=== PATIENT | male | born 1930 | race Caucasian/White ===

== ENCOUNTER 2018-04-24 07:02 | Day surgery (SDC) | payer MEDICARE, BC ==
[2018-04-24] MEDS ORDERED: Sodium Chloride 0.9% 10 ML Syringe FLUSH PRN (07:30)
--- NOTE | 2018-04-24 09:06 | OR ---
DATE OF PROCEDURE: 04/24/2018 POSTOPERATIVE CARE: Postoperative care will be provided mainly at the [address] [place] [address] [facility] in conjunction with [facility]. PREOPERATIVE DIAGNOSIS: Cataract, left eye. POSTOPERATIVE DIAGNOSIS: Cataract, left eye. PROCEDURE: He underwent cataract extraction, phacoemulsification with intraocular lens placement in the left eye. ANESTHESIA: Topical and intracameral. ESTIMATED BLOOD LOSS: Minimal. COMPLICATIONS: None. PATHOLOGY SPECIMENS: None. SURGICAL FINDINGS: None. INDICATION FOR PROCEDURE: The patient is an 87-year-old male with history of a visually significant cataract in the left eye, which interfered with activities of daily living. This consisted of a nuclear sclerosis cataract. Following careful discussion of the risks, benefits and alternatives to cataract extraction with intraocular lens placement including blindness and , the patient elected to proceed, and informed, written consent was obtained prior to the procedure. DESCRIPTION OF THE PROCEDURE: The patient was previously identified, and a giovanni placed above the left eye. All sources, including the patient, indicated that the left eye was the correct eye. The patient was subsequently taken to the operating room where standard monitors were applied. The patient was then prepped and draped in the usual sterile fashion for ophthalmic surgery. Attention was first directed at the 12 o'clock position where a paracentesis port was fashioned. Shugar solution followed by Viscoat was instilled into the eye. Attention was then directed to the 8:30 position where a triplanar incision was made in a near-clear manner using a keratome. A continuous capsulorrhexis was then made using a combination of the cystotome and Utrata forceps. Hydrodissection was achieved using a balanced salt solution, and the lens rotated nicely. Phacoemulsification was then done using a modified [id number] technique without complication. Phaco time was 7.55 CDE. The remaining cortex was removed using the irrigation/aspiration handpiece. Provisc was then instilled into the eye. A Technis lens, model [id number], 17.0 diopters was then placed in the capsular bag using an [place] injector. The remaining viscoelastic was removed using the irrigation/aspiration forceps. All wounds were then checked and found to be watertight. The lid speculum and drapes were removed. Maxitrol ointment was placed in the patient's left eye, and the eye was shielded. The patient tolerated the procedure well. The patient was instructed to follow up tomorrow. All needle and sponge counts were correct at the end of the procedure. Yaa Pierce MD /[id number]
[2018-04-24 09:23] VITALS: BP 108/52
== END 2018-04-24 09:20 | disposition home or self-care (01) ==
LOC: JP.SDS 07:02
PROVIDERS: ATTEND Ophthalmology
DX: H25.12 Age-related nuclear cataract, left eye (principal); E78.5 Hyperlipidemia, unspecified; N18.4 Chronic kidney disease, stage 4 (severe)

== ENCOUNTER 2019-06-10 12:15 | Inpatient (IN) | payer MEDICARE, BC ==
[2019-06-10] MEDS ORDERED: Sodium Chloride 0.9% 10 ML Syringe FLUSH PRN (12:48)
[2019-06-10] MEDS ORDERED: Sodium Chloride 0.9% 500 ML IV ONE (12:48)
[2019-06-10] MEDS ORDERED: traMADol 50 MG Tab PO PRN (13:33)
[2019-06-10] MEDS ORDERED: Ondansetron 4 MG Tab.DIS PO PRN (13:34)
[2019-06-10] MEDS ORDERED: Magnesium Hydroxide 400 MG/5 ML Susp 30 ML Cup PO PRN (13:34)
[2019-06-10] MEDS ORDERED: Ondansetron 4 MG/2 ML SDV IV PRN (13:34)
[2019-06-10] MEDS ORDERED: LORazepam 2 MG/ML SDV IVPUSH PRN (13:34)
--- NOTE | 2019-06-10 13:41 | PCM.HP.2 ---
H&P History of Present Illness - General Date of Service: 06/10/19 Admit Problem/Dx: Admission Diagnosis/Problem Admission Diagnosis/Problem Complicated urinary tract infection Source of Information: Patient, Family, Provider History Limitations: Reports: Altered Mental Status (dementia ) - History of Present Illness Initial Comments - Free Text/Narative: CC: I'm so weak I couldn't get out of bed HPI: Don presents today as a direct admission from the clinic. He does have dementia and some of the history is gathered from his and daughter. Part of the history is gathered from the patient. He initially presented to the clinic with weakness as well as a change in the color of his urine and fever. Things have progressed over the past 48 hours when they first noticed some weakness. He has been more weak and today could not get out of bed. His urine has become dark. Fevers have been present off and on for the last 48 hours and were as high as 101.4. He has been more confused than usual. Is complaining of bilateral knee pain. No concerns about cough, shortness of breath or chest pain. He does not report abdominal pain but does report some mild achy lower back pain. Appetite has remained normal. He has a history of urinary tract infections and they feel this presentation is very similar to previous ones. Urinalysis in the clinic suggestive of infection. Patient was borderline hypotensive. He was sent for admission. - Related Data Allergies/Adverse Reactions: Allergies Allergy/AdvReac Type Severity Reaction Status Date / Time No Known Allergies Allergy Verified 05/18/18 14:21 Home Medications: Home Meds Simvastatin 20 mg PO BEDTIME 02/02/16 [History] Acetaminophen [Tylenol Extra Strength] 500 mg PO Q6H PRN 06/10/19 [History] Ferrous Sulfate 325 mg PO DAILY 06/10/19 [History] Paricalcitol 2 mcg PO ASDIRECTED 06/10/19 [History] traMADol HCl [Tramadol HCl] 50 mg PO Q8H PRN 06/10/19 [History] Past Medical History HEENT History: Reports: Cataract, Impaired Vision, Other (See Below) Other HEENT History: "bulge on the retina" Cardiovascular History: Reports: High Cholesterol, Syncope Gastrointestinal History: Reports: Chronic Constipation, Colon Polyp Genitourinary History: Reports: Renal Disease Other Genitourinary History: "stage 4 kidney disease" Musculoskeletal History: Reports: Back Pain, Chronic Neurological History: Reports: Vertigo Psychiatric History: Reports: Dementia - Infectious Disease History Infectious Disease History: Reports: Chicken Pox - Past Surgical History Head Surgeries/Procedures: Reports: None HEENT Surgical History: Reports: Cataract Surgery, Tonsillectomy Cardiovascular Surgical History: Reports: None GI Surgical History: Reports: Colonoscopy Male Surgical History: Reports: Ureteral Stent Neurological Surgical History: Reports: None Musculoskeletal Surgical History: Reports: Hip Replacement Dermatological Surgical History: Reports: None Social & Family History - Family History Family Medical History: Noncontributory - Tobacco Use Smoking Status *Q: Unknown Ever Smoked - Caffeine Use Caffeine Use: Reports: Coffee, Tea - Alcohol Use Alcohol Use History: No H&P Review of Systems - Review of Systems: Review Of Systems: See Below Free Text/Narrative: A complete 12 point review of systems was obtained. Pertinent positives and negatives are noted in the history of present illness. All other systems were reviewed and were negative except as noted. Exam - Exam Exam: See Below - Exam Quality Assessment: No: Supplemental Oxygen General: Alert, Cooperative. No: Oriented, Mild Distress HEENT: Conjunctiva Clear. No: Mucosa Moist & [place] (dry), Scleral Icterus Neck: Supple, Trachea Midline. No: Lymphadenopathy Lungs: Clear to Auscultation, Normal Respiratory Effort Cardiovascular: Regular Rate, Regular Rhythm. No: Systolic Murmur GI/Abdominal Exam: Normal Bowel Sounds, Soft, Non-Tender, No Distention, Other ( suprapubic catheter in place, no drainage or erythema ) Extremities: No Pedal Edema, Other (knee joints normal ). No: Increased Warmth Peripheral Pulses: 2+: Dorsalis Pedis (L), Dorsalis Pedis (R) Skin: Warm, Dry Neuro Extensive - Mental Status: Alert, Nl Response to Commands. No: Oriented x3 Neuro Extensive - Motor, Sensory, Reflexes: No: Dysarthria, Abnormal Motor, Tremor Psychiatric: Alert, Normal Affect - Patient Data Lab Results Last 24 hrs: Laboratory Results - last 24 hr 06/10/19 Range/Units 13:30 WBC 11.2 H (4.5-11.0) K/uL RBC 3.61 L (4.30-5.90) M/uL Hgb 11.7 L (12.0-15.0) g/dL Hct 36.3 L (40.0-54.0) % MCV 101 H (80-98) fL MCH 32 H (27-31) pg MCHC 32 (32-36) % Plt Count 175 (150-400) K/uL Neut % (Auto) 85 H (36-66) % Lymph % (Auto) 5 L (24-44) % [place] % (Auto) 9 H (2-6) % Eos % (Auto) 0 L (2-4) % Baso % (Auto) 0 (0-1) % Result Diagrams: 06/10/19 13:30 *Q Meaningful Use (ADM) - VTE Risk Assess *Q Each Risk Factor Represents 1 Point: None Total Score 1 Point Risk Factors: 0 Each Risk Factor Represents 2 Points: None Total Score 2 Point Risk Factors: 0 Each Risk Factor Represents 3 Points: Age 75 Years or Greater Total Score 3 Point Risk Factors: 3 Each Risk Factor Represents 5 Points: None Total Score 5 Point Risk Factors: 0 Venous Thromboembolism Risk Factor Score *Q: 3 - Problem List (1) Complicated urinary tract infection SNOMED Code(s): 89092313 ICD Code: N39.0 - URINARY TRACT INFECTION, SITE NOT SPECIFIED Status: Acute Current Visit: Yes (2) CKD (chronic kidney disease), stage IV SNOMED Code(s): 423726133 ICD Code: N18.4 - CHRONIC KIDNEY DISEASE, STAGE 4 (SEVERE) Status: Chronic Current Visit: Yes (3) BPH loc w urin obs/LUTS SNOMED Code(s): 723664562 ICD Code: N40.1 - BENIGN PROSTATIC HYPERPLASIA WITH LOWER URINARY TRACT SYMP Status: Chronic Current Visit: Yes (4) Dementia without behavioral disturbance SNOMED Code(s): 09199218 ICD Code: F03.90 - UNSPECIFIED DEMENTIA WITHOUT BEHAVIORAL DISTURBANCE Status: Chronic Current Visit: Yes Qualifiers: Dementia type: unspecified type Qualified Code(s): F03.90 - Unspecified dementia without behavioral disturbance Problem List Initiated/Reviewed/Updated: Yes Orders Last 24hrs: Active Orders 24 hr Category Date Time Status Patient Status [ADT] Routine ADT 06/10/19 13:34 Ordered Antiembolic Devices [RC] .Routine Care 06/10/19 13:34 Ordered Intake and Output [RC] QSHIFT Care 06/10/19 13:34 Ordered Notify Provider Vital Signs [RC] ASDIRECTED Care 06/10/19 13:34 Ordered Oxygen Therapy [RC] PRN Care 06/10/19 13:34 Ordered Peripheral IV Care [RC] . DIRECTED Care 06/10/19 12:48 Ordered Up With Assistance [RC] ASDIRECTED Care 06/10/19 13:34 Ordered VTE/DVT Education [RC] Per Unit Routine Care 06/10/19 13:34 Ordered Vital Signs [RC] Q4H Care 06/10/19 13:34 Ordered PT Evaluation and Treatment [CONS] Routine Cons 06/11/19 07:00 Ordered Mechanical Soft Diet [DIET] Diet 06/10/19 Dinner Ordered BASIC METABOLIC PANEL,BMP [CHEM] AM Lab 06/11/19 05:11 Ordered BASIC METABOLIC PANEL,BMP [CHEM] Urgent Lab 06/10/19 12:47 Ordered CBC WITH AUTO DIFF [HEME] AM Lab 06/11/19 05:11 Ordered CULTURE URINE [RM] Routine Lab 06/10/19 12:47 Ordered LACTIC ACID [CHEM] Urgent Lab 06/10/19 12:49 Ordered Acetaminophen [Tylenol] Med 06/10/19 13:34 Ordered 650 mg PO Q4H PRN Docusate Sodium/Sennosides [Senna Plus] Med 06/10/19 13:34 Ordered 1 tab PO BID PRN Ferrous Sulfate Med 06/11/19 09:00 Ordered 325 mg PO DAILY LORazepam [Ativan] Med 06/10/19 13:34 Ordered 0.5 mg IVPUSH Q4H PRN Lactobacillus Rhamnosus GG [Culturelle] Med 06/10/19 21:00 Ordered 1 cap PO BID Magnesium Hydroxide [Milk of Magnesia] Med 06/10/19 13:34 Ordered 30 ml PO Q12H PRN Melatonin Med 06/10/19 21:00 Ordered 9 mg PO BEDTIME Ondansetron [Zofran ODT] Med 06/10/19 13:34 Ordered 4 mg PO Q6H PRN Ondansetron [Zofran] Med 06/10/19 13:34 Ordered 4 mg IV Q6H PRN Paricalcitol [Paricalcitol] Med 06/12/19 09:00 Ordered 2 mcg PO ASDIRECTED Simvastatin [Zocor] Med 06/10/19 21:00 Ordered 20 mg PO BEDTIME Sodium Chloride 0.9% @ 100 MLS/HR(1,000ml) Med 06/10/19 13:00 Ordered Sodium Chloride 0.9% [Normal Saline] 1,000 ml IV ASDIRECTED Sodium Chloride 0.9% [Saline Flush] Med 06/10/19 12:48 Ordered 10 ml FLUSH ASDIRECTED PRN cefTRIAXone [Rocephin] 2 gm Med 06/10/19 13:00 Ordered Sodium Chloride 0.9% [Normal Saline] 50 ml IV Q24H traMADol [Ultram] Med 06/10/19 13:33 Ordered 50 mg PO Q8H PRN Peripheral IV Insertion Adult [OM.PC] Routine Oth 06/10/19 12:48 Ordered Sequential Compression Device [OM.PC] Routine Oth 06/10/19 13:34 Ordered Resuscitation Status Routine Resus Stat 06/10/19 13:34 Ordered Medication Orders Ceftriaxone Sodium 2 gm/ (Sodium Chloride) 50 mls @ 100 mls/hr IV Q24H MARSHA Sodium Chloride (Normal Saline) 1,000 mls @ 100 mls/hr IV ASDIRECTED MARSHA Sodium Chloride (Saline Flush) 10 ml FLUSH ASDIRECTED PRN PRN Reason: Keep Vein Open Assessment/Plan Comment:: ASSESSMENT AND PLAN - Complicated urinary tract infection - 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 History of infections with last one about one year ago. Hypotensive in the clinic and borderline hypotensive here. Lactic acid pending. White blood cell count mildly elevated. Patient is confused and too weak to stand up and not safe for outpatient management. -Empiric ceftriaxone -Urine culture -IV fluid bolus with continued infusion overnight Dementia without behavioral disturbance - continue history of dementia. Moderate cognitive deficits. Mild confusion but no major behavior issues. -Melatonin at bedtime -Consider Haldol if agitated Stage IV chronic kidney disease - creatinine stable as of most recent test but level today is pending. Maintenance issues - - DVT prophylaxis - mechanical - GI prophylaxis - not indicated - Nutrition - pured diet - Peacock catheter - chronic suprapubic CODE STATUS - DNR/DNI Admission justification - This patient will be admitted for inpatient services and is medically appropriate meeting medical necessity for inpatient admission as outlined in my documentation. I reasonably expect the patient will require inpatient services that span a period time over 2 midnights. I reasonably expect this patient to be discharged or transferred within 96 hours after admission to the [facility]. Disposition - I would anticipate discharge home with home care versus possibly subacute rehabilitation Primary care physician - Dr. Mackenzie Parkinson M.D. - Mortality Measure Prognosis:: Good
[2019-06-10] MEDS: Sodium Chloride 0.9% 1,000 ML IV SCH ×2 (15:00→23:50)
[2019-06-10] MEDS ORDERED: Haloperidol Lactate 5 MG/ML SDV IVPUSH PRN ×2 (15:26→17:37)
[2019-06-10] MEDS: cefTRIAXone 2 GM in Sodium Chloride 0.9% 50 ML IV SCH (15:30)
[2019-06-10] MEDS: Acetaminophen 325 MG Tab PO PRN (17:20)
[2019-06-10] MEDS ORDERED: Acetaminophen 1,000 MG in Premix Bag 1 BAG IV ONE (18:05)
--- NOTE | 2019-06-10 18:13 | PCM.SN ---
- Free Text/Narrative Note: time 1750 contact to evaluate patient. He is jerking, rambling speech, fever 101.2 o: pale disabled male in noted in bed. intermittent jerking of arms and legs. skin warm to touch Mr. Cheatham does look at you when you are speaking to him. briefly stops jerking. A: fever with shaking chills P:given Tylenol 650 mg po and Ativan IV 0.[address] Parkinson, Hospitalist order IV Tylenol 1 gram continue to monitor closely.
[2019-06-10] MEDS: Melatonin 3 MG Tab PO SCH (23:13)
[2019-06-10] MEDS: Simvastatin 20 MG Tab PO SCH (23:13)
[2019-06-10] MEDS: Lactobacillus Rhamnosus GG (Probiotic) Cap PO SCH (23:13)
[2019-06-11] MEDS: Lactobacillus Rhamnosus GG (Probiotic) Cap PO SCH ×2 (08:36→20:43)
[2019-06-11] MEDS: Ferrous Sulfate 325 MG Tab PO SCH (08:36)
[2019-06-11] MEDS: Sodium Chloride 0.9% 1,000 ML IV SCH (09:31)
--- NOTE | 2019-06-11 10:54 | PCM.PN ---
- General Info Date of Service: 06/11/19 Subjective Update: Patient had an episode of fever that was associated with increased confusion and convulsive-like movements. Agitation and convulsions resolved with acetaminophen and temperature normalization. There has been no recurrence of fever or the agitation. Patient is more alert and interactive today. Strength is coming back. Urine culture growing a gram-negative rods with identification pending. Appetite is better today. - Patient Data Vitals - Most Recent: Last Vital Signs Temp 35.8 C 06/11/19 07:00 Pulse 54 L 06/11/19 07:00 Resp 16 06/11/19 07:00 BP 111/54 L 06/11/19 07:00 Pulse Ox 98 06/11/19 07:00 Weight - Most Recent: 55.3 kg I&O - Last 24 Hours: Intake & Output 06/10/19 06/11/19 06/11/19 22:59 06:59 14:59 Intake Total 1008 1136 560 Output Total 175 700 Balance 833 436 560 Lab Results Last 24 Hours: Laboratory Results - last 24 hr 06/10/19 06/10/19 06/10/19 Range/Units 08:16 13:30 13:30 WBC 11.2 H (4.5-11.0) K/uL RBC 3.61 L (4.30-5.90) M/uL Hgb 11.7 L (12.0-15.0) g/dL Hct 36.3 L (40.0-54.0) % MCV 101 H (80-98) fL MCH 32 H (27-31) pg MCHC 32 (32-36) % Plt Count 175 (150-400) K/uL Neut % (Auto) 85 H (36-66) % Lymph % (Auto) 5 L (24-44) % [place] % (Auto) 9 H (2-6) % Eos % (Auto) 0 L (2-4) % Baso % (Auto) 0 (0-1) % Sodium 136 L (140-148) mmol/L Potassium 4.7 (3.6-5.2) mmol/L Chloride 100 (100-108) mmol/L Carbon Dioxide 26 (21-32) mmol/L Anion Gap 14.7 H (5.0-14.0) mmol/L BUN 35 H (7-18) mg/dL Creatinine 2.1 H (0.8-1.3) mg/dL Est Cr Clr Drug Dosing 19.38 mL/min Estimated GFR (MDRD) 30 L (>60) Glucose 100 (74-106) mg/dL Lactic Acid 5.7 H (0.4-2.0) mmol/L Calcium 9.3 (8.5-10.1) mg/dL 06/10/19 06/11/19 06/11/19 Range/Units 13:30 05:58 05:58 WBC 7.3 (4.5-11.0) K/uL RBC 2.79 L (4.30-5.90) M/uL Hgb 9.3 L D (12.0-15.0) g/dL Hct 28.3 L (40.0-54.0) % MCV 101 H (80-98) fL MCH 33 H (27-31) pg MCHC 33 (32-36) % Plt Count 104 L (150-400) K/uL Neut % (Auto) 66 (36-66) % Lymph % (Auto) 14 L (24-44) % [place] % (Auto) 20 H (2-6) % Eos % (Auto) 0 L (2-4) % Baso % (Auto) 0 (0-1) % Sodium 138 L (140-148) mmol/L Potassium 4.4 (3.6-5.2) mmol/L Chloride 106 (100-108) mmol/L Carbon Dioxide 22 (21-32) mmol/L Anion Gap 14.4 H (5.0-14.0) mmol/L BUN 34 H (7-18) mg/dL Creatinine 2.0 H (0.8-1.3) mg/dL Est Cr Clr Drug Dosing 20.35 mL/min Estimated GFR (MDRD) 32 L (>60) Glucose 114 H (74-106) mg/dL Lactic Acid 3.3 H (0.4-2.0) mmol/L Calcium 8.7 (8.5-10.1) mg/dL [place] Results Last 24 Hours: Microbiology 06/10/19 16:40 Urine Culture - Preliminary Urine, Clean Catch Med Orders - Current: Current Medications Acetaminophen (Tylenol) 650 mg PO Q4H PRN PRN Reason: Pain (Mild 1-3)/fever Last Admin: 06/10/19 17:20 Dose: 650 mg Ferrous Sulfate (Ferrous Sulfate) 325 mg PO DAILY [facility] Last Admin: 06/11/19 08:36 Dose: 325 mg Haloperidol Lactate (Haldol) 2 mg IVPUSH Q2H PRN PRN Reason: Agitation Ceftriaxone Sodium 2 gm/ (Sodium Chloride) 50 mls @ 100 mls/hr IV Q24H [facility] Last Admin: 06/10/19 15:30 Dose: 100 mls/hr Lactobacillus Rhamnosus (Culturelle) 1 cap PO BID [facility] Last Admin: 06/11/19 08:36 Dose: 1 cap Lorazepam (Ativan) 0.5 mg IVPUSH Q4H PRN PRN Reason: Nausea/Vomiting Last Admin: 06/10/19 17:54 Dose: 0.5 mg Magnesium Hydroxide (Milk Of Magnesia) 30 ml PO Q12H PRN PRN Reason: Constipation Melatonin (Melatonin) 9 mg PO BEDTIME [facility] Last Admin: 06/10/19 23:13 Dose: Not Given Non-Formulary Medication (Paricalcitol [Paricalcitol]) 2 mcg PO ASDIRECTED [facility] Ondansetron HCl (Zofran Odt) 4 mg PO Q6H PRN PRN Reason: Nausea able to take PO Ondansetron HCl (Zofran) 4 mg IV Q6H PRN PRN Reason: Nausea/Vomiting Senna/Docusate Sodium (Senna Plus) 1 tab PO BID PRN PRN Reason: Constipation Simvastatin (Zocor) 20 mg PO BEDTIME [facility] Last Admin: 06/10/19 23:13 Dose: Not Given Sodium Chloride (Saline Flush) 10 ml FLUSH ASDIRECTED PRN PRN Reason: Keep Vein Open Tramadol HCl (Ultram) 50 mg PO Q8H PRN PRN Reason: Pain (moderate 4-6) Discontinued Medications Haloperidol Lactate (Haldol) 1 mg IVPUSH Q4H PRN PRN Reason: Agitation Last Admin: 06/10/19 15:37 Dose: 1 mg Sodium Chloride (Normal Saline) 500 mls @ 999 mls/hr IV .BOLUS ONE Stop: 06/10/19 13:18 Last Admin: 06/10/19 14:48 Dose: 999 mls/hr Sodium Chloride (Normal Saline) 1,000 mls @ 100 mls/hr IV ASDIRECTED [facility] Last Admin: 06/11/19 09:31 Dose: 100 mls/hr Acetaminophen 1,000 mg/ Premix 100 mls @ 400 mls/hr IV NOW ONE Stop: 06/10/19 18:19 Last Admin: 06/10/19 18:29 Dose: 400 mls/hr - Exam Quality Assessment: No: Supplemental Oxygen General: Alert, Oriented, Cooperative, No Acute Distress Lungs: Normal Respiratory Effort Cardiovascular: Regular Rate, Regular Rhythm GI/Abdominal Exam: Soft Extremities: No Pedal Edema Psy/Mental Status: Alert, Normal Affect - Problem List & Annotations (1) Complicated urinary tract infection SNOMED Code(s): 99534163 Code(s): N39.0 - URINARY TRACT INFECTION, SITE NOT SPECIFIED Status: Acute Current Visit: Yes (2) CKD (chronic kidney disease), stage IV SNOMED Code(s): 899036075 Code(s): N18.4 - CHRONIC KIDNEY DISEASE, STAGE 4 (SEVERE) Status: Chronic Current Visit: Yes (3) BPH loc w urin obs/LUTS SNOMED Code(s): 055210008 Code(s): N40.1 - BENIGN PROSTATIC HYPERPLASIA WITH LOWER URINARY TRACT SYMP Status: Chronic Current Visit: Yes (4) Dementia without behavioral disturbance SNOMED Code(s): 63834285 Code(s): F03.90 - UNSPECIFIED DEMENTIA WITHOUT BEHAVIORAL DISTURBANCE Status: Chronic Current Visit: Yes Qualifiers: Dementia type: unspecified type Qualified Code(s): F03.90 - Unspecified dementia without behavioral disturbance - Problem List Review Problem List Initiated/Reviewed/Updated: Yes - My Orders Last 24 Hours: My Active Orders 06/10/19 12:48 Peripheral IV Care [RC] Q12H Sodium Chloride 0.9% [Saline Flush] 10 ml FLUSH ASDIRECTED PRN Peripheral IV Insertion Adult [OM.PC] Routine 06/10/19 13:30 cefTRIAXone [Rocephin] 2 gm Sodium Chloride 0.9% [Normal Saline] 50 ml IV Q24H 06/10/19 13:33 traMADol [Ultram] 50 mg PO Q8H PRN 06/10/19 13:34 Patient Status [ADT] Routine Antiembolic Devices [RC] .Routine Intake and Output [RC] QSHIFT Notify Provider Vital Signs [RC] ASDIRECTED Oxygen Therapy [RC] PRN Up With Assistance [RC] ASDIRECTED Vital Signs [RC] Q4H Acetaminophen [Tylenol] 650 mg PO Q4H PRN Docusate Sodium/Sennosides [Senna Plus] 1 tab PO BID PRN LORazepam [Ativan] 0.5 mg IVPUSH Q4H PRN Magnesium Hydroxide [Milk of Magnesia] 30 ml PO Q12H PRN Ondansetron [Zofran ODT] 4 mg PO Q6H PRN Ondansetron [Zofran] 4 mg IV Q6H PRN Sequential Compression Device [OM.PC] Routine Resuscitation Status Routine 06/10/19 16:40 CULTURE URINE [RM] Routine 06/10/19 17:37 Haloperidol Lactate [Haldol] 2 mg IVPUSH Q2H PRN 06/10/19 21:00 Lactobacillus Rhamnosus GG [Culturelle] 1 cap PO BID Melatonin 9 mg PO BEDTIME Simvastatin [Zocor] 20 mg PO BEDTIME 06/10/19 Dinner Mechanical Soft Diet [DIET] 06/11/19 07:00 PT Evaluation and Treatment [CONS] Routine 06/11/19 09:00 Ferrous Sulfate 325 mg PO DAILY 06/11/19 10:54 Convert IV to Saline Lock [OM.PC] Routine 06/12/19 05:00 BASIC METABOLIC PANEL,BMP [CHEM] Timed CBC W/O DIFF,HEMOGRAM [HEME] Timed (1) 06/12/19 09:00 Paricalcitol [Paricalcitol] 2 mcg PO ASDIRECTED - Plan Plan:: ASSESSMENT AND PLAN - Complicated urinary tract infection - 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 Impressive fever overnight but afebrile since that time. Clinically improving. -Empiric ceftriaxone -Urine culture -Saline lock IV fluids Dementia without behavioral disturbance - continue history of dementia. Moderate cognitive deficits. Mild confusion but no major behavior issues. -Melatonin at bedtime -Consider Haldol if agitated Stage IV chronic kidney disease - creatinine stable. Maintenance issues - - DVT prophylaxis - mechanical - GI prophylaxis - not indicated - Nutrition - pured diet - Peacock catheter - chronic suprapubic Disposition - I would anticipate discharge home with home care versus possibly subacute rehabilitation Primary care physician - Dr. Mackenzie Parkinson M.D.
[2019-06-11] MEDS: cefTRIAXone 2 GM in Sodium Chloride 0.9% 50 ML IV SCH (13:37)
[2019-06-11] MEDS: Melatonin 3 MG Tab PO SCH (20:43)
[2019-06-11] MEDS: Simvastatin 20 MG Tab PO SCH (20:43)
[2019-06-12] MEDS: Ferrous Sulfate 325 MG Tab PO SCH (08:48)
[2019-06-12] MEDS: Lactobacillus Rhamnosus GG (Probiotic) Cap PO SCH ×2 (08:48→20:44)
--- NOTE | 2019-06-12 13:32 | PCM.PN ---
- General Info Date of Service: 06/12/19 Subjective Update: there were no acute events overnight. The patient has not had any fevers. Appetite has been good. Strength is been slowly improving. Urine culture grew out Klebsiella. He requires the assist of at least one to get out of bed but does okay once he is on his feet. Functional Status: Reports: Pain Controlled, Tolerating Diet - Review of Systems General: Denies: Fever - Patient Data Vitals - Most Recent: Last Vital Signs Temp 36.4 C 06/12/19 11:17 Pulse 76 06/12/19 11:17 Resp 18 06/12/19 11:17 BP 129/68 06/12/19 11:17 Pulse Ox 97 06/12/19 11:17 Weight - Most Recent: 55.3 kg I&O - Last 24 Hours: Intake & Output 06/11/19 06/12/19 06/12/19 22:59 06:59 14:59 Intake Total 440 1220 Output Total 812 467 8846 Balance 90 -900 170 Lab Results Last 24 Hours: Laboratory Results - last 24 hr 06/12/19 06/12/19 Range/Units 06:00 06:00 WBC 7.0 (4.5-11.0) K/uL RBC 2.98 L (4.30-5.90) M/uL Hgb 9.4 L (12.0-15.0) g/dL Hct 30.0 L (40.0-54.0) % MCV 101 H (80-98) fL MCH 32 H (27-31) pg MCHC 31 L (32-36) % Plt Count 131 L (150-400) K/uL Sodium 139 L (140-148) mmol/L Potassium 4.5 (3.6-5.2) mmol/L Chloride 107 (100-108) mmol/L Carbon Dioxide 22 (21-32) mmol/L Anion Gap 14.5 H (5.0-14.0) mmol/L BUN 39 H (7-18) mg/dL Creatinine 1.8 H (0.8-1.3) mg/dL Est Cr Clr Drug Dosing 22.61 mL/min Estimated GFR (MDRD) 36 L (>60) Glucose 99 (74-106) mg/dL Calcium 8.6 (8.5-10.1) mg/dL Amilcar Results Last 24 Hours: Microbiology 06/10/19 16:40 Urine Culture - Final Urine, Clean Catch Klebsiella Oxytoca Med Orders - Current: Current Medications Acetaminophen (Tylenol) 650 mg PO Q4H PRN PRN Reason: Pain (Mild 1-3)/fever Last Admin: 06/10/19 17:20 Dose: 650 mg Ferrous Sulfate (Ferrous Sulfate) 325 mg PO DAILY [facility] Last Admin: 06/12/19 08:48 Dose: 325 mg Haloperidol Lactate (Haldol) 2 mg IVPUSH Q2H PRN PRN Reason: Agitation Ceftriaxone Sodium 2 gm/ (Sodium Chloride) 50 mls @ 100 mls/hr IV Q24H [facility] Last Admin: 06/11/19 13:37 Dose: 100 mls/hr Lactobacillus Rhamnosus (Culturelle) 1 cap PO BID [facility] Last Admin: 06/12/19 08:48 Dose: 1 cap Lorazepam (Ativan) 0.5 mg IVPUSH Q4H PRN PRN Reason: Nausea/Vomiting Last Admin: 06/10/19 17:54 Dose: 0.5 mg Magnesium Hydroxide (Milk Of Magnesia) 30 ml PO Q12H PRN PRN Reason: Constipation Melatonin (Melatonin) 9 mg PO BEDTIME [facility] Last Admin: 06/11/19 20:43 Dose: 9 mg (Paricalcitol [ (Paricalcitol] 2 Mcg)) 2 mcg PO MoWeFr@0900 [facility] Last Admin: 06/12/19 11:15 Dose: Not Given Ondansetron HCl (Zofran Odt) 4 mg PO Q6H PRN PRN Reason: Nausea able to take PO Ondansetron HCl (Zofran) 4 mg IV Q6H PRN PRN Reason: Nausea/Vomiting Senna/Docusate Sodium (Senna Plus) 1 tab PO BID PRN PRN Reason: Constipation Simvastatin (Zocor) 20 mg PO BEDTIME [facility] Last Admin: 06/11/19 20:43 Dose: 20 mg Sodium Chloride (Saline Flush) 10 ml FLUSH ASDIRECTED PRN PRN Reason: Keep Vein Open Tramadol HCl (Ultram) 50 mg PO Q8H PRN PRN Reason: Pain (moderate 4-6) Discontinued Medications Haloperidol Lactate (Haldol) 1 mg IVPUSH Q4H PRN PRN Reason: Agitation Last Admin: 06/10/19 15:37 Dose: 1 mg Sodium Chloride (Normal Saline) 500 mls @ 999 mls/hr IV .BOLUS ONE Stop: 06/10/19 13:18 Last Admin: 06/10/19 14:48 Dose: 999 mls/hr Sodium Chloride (Normal Saline) 1,000 mls @ 100 mls/hr IV ASDIRECTED [facility] Last Admin: 06/11/19 09:31 Dose: 100 mls/hr Acetaminophen 1,000 mg/ Premix 100 mls @ 400 mls/hr IV NOW ONE Stop: 06/10/19 18:19 Last Admin: 06/10/19 18:29 Dose: 400 mls/hr - Exam Quality Assessment: No: Supplemental Oxygen General: Alert, Oriented, Cooperative, No Acute Distress Lungs: Normal Respiratory Effort GI/Abdominal Exam: Soft, No Distention Extremities: No Pedal Edema Psy/Mental Status: Alert, Normal Affect - Problem List & Annotations (1) Complicated urinary tract infection SNOMED Code(s): 49479242 Code(s): N39.0 - URINARY TRACT INFECTION, SITE NOT SPECIFIED Status: Acute Current Visit: Yes (2) CKD (chronic kidney disease), stage IV SNOMED Code(s): 235543238 Code(s): N18.4 - CHRONIC KIDNEY DISEASE, STAGE 4 (SEVERE) Status: Chronic Current Visit: Yes (3) BPH loc w urin obs/LUTS SNOMED Code(s): 971311155 Code(s): N40.1 - BENIGN PROSTATIC HYPERPLASIA WITH LOWER URINARY TRACT SYMP Status: Chronic Current Visit: Yes (4) Dementia without behavioral disturbance SNOMED Code(s): 65697361 Code(s): F03.90 - UNSPECIFIED DEMENTIA WITHOUT BEHAVIORAL DISTURBANCE Status: Chronic Current Visit: Yes Qualifiers: Dementia type: unspecified type Qualified Code(s): F03.90 - Unspecified dementia without behavioral disturbance - Problem List Review Problem List Initiated/Reviewed/Updated: Yes - My Orders Last 24 Hours: My Active Orders 06/12/19 09:00 Paricalcitol [Paricalcitol] 2 mcg PO MoWeFr@0900 - Plan Plan:: ASSESSMENT AND PLAN - Complicated urinary tract infection - 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 no recurrence of fever. Urine culture grew out Klebsiella. he is still weak and requiring significant assistance. His family does not believe that he is safe at home at this time because of his weakness. -change antibiotics to cephalexin with plan to treat for 7 days Dementia without behavioral disturbance - continue history of dementia. Moderate cognitive deficits. Mild confusion but no major behavior issues. -Melatonin at bedtime -Consider Haldol if agitated Stage IV chronic kidney disease - creatinine has actually improved into the stage III GFR range. Maintenance issues - - DVT prophylaxis - mechanical - GI prophylaxis - not indicated - Nutrition - pured diet - Peacock catheter - chronic suprapubic Disposition - I would anticipate [facility] to the [facility] for subacute rehabilitation Primary care physician - Dr. Mackenzie Parkinson M.D.
[2019-06-12] MEDS: cefTRIAXone 2 GM in Sodium Chloride 0.9% 50 ML IV SCH (14:51)
[2019-06-12] MEDS ORDERED: Cephalexin 250 MG Cap PO ONE (15:02)
[2019-06-12] MEDS: Cephalexin 250 MG Cap PO SCH ×2 (16:36→20:44)
[2019-06-12] MEDS: Simvastatin 20 MG Tab PO SCH (20:45)
[2019-06-12] MEDS: Melatonin 3 MG Tab PO SCH (20:45)
[2019-06-12] MEDS ORDERED: Cephalexin 250 MG Cap PO SCH (21:00)
[2019-06-13] MEDS: Lactobacillus Rhamnosus GG (Probiotic) Cap PO SCH ×2 (08:56→20:01)
[2019-06-13] MEDS: Ferrous Sulfate 325 MG Tab PO SCH (08:56)
[2019-06-13] MEDS: Cephalexin 250 MG Cap PO SCH ×2 (09:02→20:01)
--- NOTE | 2019-06-13 11:02 | PCM.PN ---
- General Info Date of Service: 06/13/19 Subjective Update: No acute events overnight. Did very well with physical therapy this morning and was able to ambulate effectively in the hallway. Appetite has been good. Vital signs have all been stable. Functional Status: Reports: Pain Controlled, Tolerating Diet - Patient Data Vitals - Most Recent: Last Vital Signs Temp 36.8 C 06/13/19 07:05 Pulse 95 06/13/19 07:05 Resp 18 06/13/19 07:05 BP 167/90 H 06/13/19 07:05 Pulse Ox 97 06/13/19 07:05 Weight - Most Recent: 55.3 kg I&O - Last 24 Hours: Intake & Output 06/12/19 06/13/19 06/13/19 22:59 06:59 14:59 Intake Total 990 240 200 Output Total 500 2300 Balance 490 -2060 200 Amilcar Results Last 24 Hours: Microbiology 06/10/19 16:40 Urine Culture - Final Urine, Clean Catch Klebsiella Oxytoca Med Orders - Current: Current Medications Acetaminophen (Tylenol) 650 mg PO Q4H PRN PRN Reason: Pain (Mild 1-3)/fever Last Admin: 06/10/19 17:20 Dose: 650 mg Cephalexin (Keflex) 500 mg PO BID [facility] Last Admin: 06/13/19 09:02 Dose: 500 mg Ferrous Sulfate (Ferrous Sulfate) 325 mg PO DAILY [facility] Last Admin: 06/13/19 08:56 Dose: 325 mg Haloperidol Lactate (Haldol) 2 mg IVPUSH Q2H PRN PRN Reason: Agitation Lactobacillus Rhamnosus (Culturelle) 1 cap PO BID [facility] Last Admin: 06/13/19 08:56 Dose: 1 cap Lorazepam (Ativan) 0.5 mg IVPUSH Q4H PRN PRN Reason: Nausea/Vomiting Last Admin: 06/10/19 17:54 Dose: 0.5 mg Magnesium Hydroxide (Milk Of Magnesia) 30 ml PO Q12H PRN PRN Reason: Constipation Melatonin (Melatonin) 9 mg PO BEDTIME [facility] Last Admin: 06/12/19 20:45 Dose: 9 mg (Paricalcitol [ (Paricalcitol] 2 Mcg)) 2 mcg PO MoWeFr@0900 [facility] Last Admin: 06/12/19 11:15 Dose: Not Given Ondansetron HCl (Zofran Odt) 4 mg PO Q6H PRN PRN Reason: Nausea able to take PO Ondansetron HCl (Zofran) 4 mg IV Q6H PRN PRN Reason: Nausea/Vomiting Senna/Docusate Sodium (Senna Plus) 1 tab PO BID PRN PRN Reason: Constipation Simvastatin (Zocor) 20 mg PO BEDTIME [facility] Last Admin: 06/12/19 20:45 Dose: 20 mg Sodium Chloride (Saline Flush) 10 ml FLUSH ASDIRECTED PRN PRN Reason: Keep Vein Open Tramadol HCl (Ultram) 50 mg PO Q8H PRN PRN Reason: Pain (moderate 4-6) Discontinued Medications Cephalexin (Keflex) 500 mg PO BID [facility] Haloperidol Lactate (Haldol) 1 mg IVPUSH Q4H PRN PRN Reason: Agitation Last Admin: 06/10/19 15:37 Dose: 1 mg Ceftriaxone Sodium 2 gm/ (Sodium Chloride) 50 mls @ 100 mls/hr IV Q24H [facility] Last Admin: 06/12/19 14:51 Dose: Not Given Sodium Chloride (Normal Saline) 500 mls @ 999 mls/hr IV .BOLUS ONE Stop: 06/10/19 13:18 Last Admin: 06/10/19 14:48 Dose: 999 mls/hr Sodium Chloride (Normal Saline) 1,000 mls @ 100 mls/hr IV ASDIRECTED [facility] Last Admin: 06/11/19 09:31 Dose: 100 mls/hr Acetaminophen 1,000 mg/ Premix 100 mls @ 400 mls/hr IV NOW ONE Stop: 06/10/19 18:19 Last Admin: 06/10/19 18:29 Dose: 400 mls/hr - Exam Quality Assessment: No: Supplemental Oxygen General: Alert, Oriented, Cooperative, No Acute Distress Lungs: Normal Respiratory Effort GI/Abdominal Exam: Soft, No Distention Extremities: No Pedal Edema Psy/Mental Status: Alert, Normal Affect - Problem List & Annotations (1) Complicated urinary tract infection SNOMED Code(s): 35938720 Code(s): N39.0 - URINARY TRACT INFECTION, SITE NOT SPECIFIED Status: Acute Current Visit: Yes (2) CKD (chronic kidney disease), stage IV SNOMED Code(s): 069027634 Code(s): N18.4 - CHRONIC KIDNEY DISEASE, STAGE 4 (SEVERE) Status: Chronic Current Visit: Yes (3) BPH loc w urin obs/LUTS SNOMED Code(s): 326733304 Code(s): N40.1 - BENIGN PROSTATIC HYPERPLASIA WITH LOWER URINARY TRACT SYMP Status: Chronic Current Visit: Yes (4) Dementia without behavioral disturbance SNOMED Code(s): 95957505 Code(s): F03.90 - UNSPECIFIED DEMENTIA WITHOUT BEHAVIORAL DISTURBANCE Status: Chronic Current Visit: Yes Qualifiers: Dementia type: unspecified type Qualified Code(s): F03.90 - Unspecified dementia without behavioral disturbance - Problem List Review Problem List Initiated/Reviewed/Updated: Yes - My Orders Last 24 Hours: My Active Orders 06/12/19 16:00 cephALEXin [Keflex] 500 mg PO BID - Plan Plan:: ASSESSMENT AND PLAN - Complicated urinary tract infection - 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 Urine culture grew out Klebsiella. Strength improving but still would benefit from subacute rehabilitation and we are waiting for placement. -change antibiotics to cephalexin with plan to treat for 7 days Dementia without behavioral disturbance - continue history of dementia. Moderate cognitive deficits. Mild confusion but no major behavior issues. -Melatonin at bedtime -Consider Haldol if agitated Stage III/IV chronic kidney disease - creatinine has actually improved into the stage III GFR range. Maintenance issues - - DVT prophylaxis - mechanical - GI prophylaxis - not indicated - Nutrition - pured diet - Peacock catheter - chronic suprapubic Disposition - I would [facility] when a bed is available on Saturday. Primary care physician - Dr. Mackenzie Parkinson M.D.
[2019-06-13] MEDS: Acetaminophen 325 MG Tab PO PRN (12:11)
[2019-06-13] MEDS: Simvastatin 20 MG Tab PO SCH (20:00)
[2019-06-13] MEDS: Melatonin 3 MG Tab PO SCH (20:00)
[2019-06-14] MEDS: Cephalexin 250 MG Cap PO SCH ×2 (08:45→20:52)
[2019-06-14] MEDS: Lactobacillus Rhamnosus GG (Probiotic) Cap PO SCH ×2 (08:46→20:53)
[2019-06-14] MEDS: Ferrous Sulfate 325 MG Tab PO SCH (08:46)
[2019-06-14] MEDS: Acetaminophen 325 MG Tab PO PRN (11:02)
--- NOTE | 2019-06-14 13:38 | PCM.PN ---
- General Info Date of Service: 06/14/19 Subjective Update: No acute events overnight. Patient is a little sleepy after waking up from a nap and unable to provide any reliable history. He is complaining of some achy pain in his lower back. Low-grade fever noted late this morning. Appetite has been good. He has been up and moving around with assistance. Still weak. No behavior issues. Functional Status: Reports: Pain Controlled, Tolerating Diet - Review of Systems General: Reports: Fever - Patient Data Vitals - Most Recent: Last Vital Signs Temp 37.6 C 06/14/19 11:32 Pulse 100 06/14/19 11:02 Resp 16 06/14/19 11:02 BP 129/46 L 06/14/19 11:02 Pulse Ox 93 L 06/14/19 11:02 Weight - Most Recent: 55.3 kg I&O - Last 24 Hours: Intake & Output 06/13/19 06/14/19 06/14/19 22:59 06:59 14:59 Intake Total 480 200 Output Total 650 1175 Balance -170 -1175 200 Med Orders - Current: Current Medications Acetaminophen (Tylenol) 650 mg PO Q4H PRN PRN Reason: Pain (Mild 1-3)/fever Last Admin: 06/14/19 11:02 Dose: 650 mg Cephalexin (Keflex) 500 mg PO BID [facility] Last Admin: 06/14/19 08:45 Dose: 500 mg Ferrous Sulfate (Ferrous Sulfate) 325 mg PO DAILY [facility] Last Admin: 06/14/19 08:46 Dose: 325 mg Haloperidol Lactate (Haldol) 2 mg IVPUSH Q2H PRN PRN Reason: Agitation Lactobacillus Rhamnosus (Culturelle) 1 cap PO BID [facility] Last Admin: 06/14/19 08:46 Dose: 1 cap Lorazepam (Ativan) 0.5 mg IVPUSH Q4H PRN PRN Reason: Nausea/Vomiting Last Admin: 06/10/19 17:54 Dose: 0.5 mg Magnesium Hydroxide (Milk Of Magnesia) 30 ml PO Q12H PRN PRN Reason: Constipation Melatonin (Melatonin) 9 mg PO BEDTIME [facility] Last Admin: 06/13/19 20:00 Dose: 9 mg (Paricalcitol [ (Paricalcitol] 2 Mcg)) 2 mcg PO MoWeFr@0900 [facility] Last Admin: 06/12/19 11:15 Dose: Not Given Ondansetron HCl (Zofran Odt) 4 mg PO Q6H PRN PRN Reason: Nausea able to take PO Ondansetron HCl (Zofran) 4 mg IV Q6H PRN PRN Reason: Nausea/Vomiting Senna/Docusate Sodium (Senna Plus) 1 tab PO BID PRN PRN Reason: Constipation Simvastatin (Zocor) 20 mg PO BEDTIME [facility] Last Admin: 06/13/19 20:00 Dose: 20 mg Sodium Chloride (Saline Flush) 10 ml FLUSH ASDIRECTED PRN PRN Reason: Keep Vein Open Tramadol HCl (Ultram) 50 mg PO Q8H PRN PRN Reason: Pain (moderate 4-6) Discontinued Medications Cephalexin (Keflex) 500 mg PO BID [facility] Haloperidol Lactate (Haldol) 1 mg IVPUSH Q4H PRN PRN Reason: Agitation Last Admin: 06/10/19 15:37 Dose: 1 mg Ceftriaxone Sodium 2 gm/ (Sodium Chloride) 50 mls @ 100 mls/hr IV Q24H [facility] Last Admin: 06/12/19 14:51 Dose: Not Given Sodium Chloride (Normal Saline) 500 mls @ 999 mls/hr IV .BOLUS ONE Stop: 06/10/19 13:18 Last Admin: 06/10/19 14:48 Dose: 999 mls/hr Sodium Chloride (Normal Saline) 1,000 mls @ 100 mls/hr IV ASDIRECTED [facility] Last Admin: 06/11/19 09:31 Dose: 100 mls/hr Acetaminophen 1,000 mg/ Premix 100 mls @ 400 mls/hr IV NOW ONE Stop: 06/10/19 18:19 Last Admin: 06/10/19 18:29 Dose: 400 mls/hr - Exam Quality Assessment: No: Supplemental Oxygen General: Alert, Cooperative, No Acute Distress. No: Oriented HEENT: Pupils Equal Lungs: Normal Respiratory Effort GI/Abdominal Exam: Soft, No Distention Extremities: No Pedal Edema Psy/Mental Status: Alert. No: Agitated - Problem List & Annotations (1) Complicated urinary tract infection SNOMED Code(s): 08904038 Code(s): N39.0 - URINARY TRACT INFECTION, SITE NOT SPECIFIED Status: Acute Current Visit: Yes (2) CKD (chronic kidney disease), stage IV SNOMED Code(s): 063175168 Code(s): N18.4 - CHRONIC KIDNEY DISEASE, STAGE 4 (SEVERE) Status: Chronic Current Visit: Yes (3) BPH loc w urin obs/LUTS SNOMED Code(s): 995084159 Code(s): N40.1 - BENIGN PROSTATIC HYPERPLASIA WITH LOWER URINARY TRACT SYMP Status: Chronic Current Visit: Yes (4) Dementia without behavioral disturbance SNOMED Code(s): 87768931 Code(s): F03.90 - UNSPECIFIED DEMENTIA WITHOUT BEHAVIORAL DISTURBANCE Status: Chronic Current Visit: Yes Qualifiers: Dementia type: unspecified type Qualified Code(s): F03.90 - Unspecified dementia without behavioral disturbance - Problem List Review Problem List Initiated/Reviewed/Updated: Yes - Plan Plan:: ASSESSMENT AND PLAN - Complicated urinary tract infection - 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 Urine culture grew out Klebsiella. Low grade fever today but otherwise doing well. -change antibiotics to cephalexin with plan to treat for 7 days Dementia without behavioral disturbance - continue history of dementia. Moderate cognitive deficits. Mild confusion but no major behavior issues. -Melatonin at bedtime -Consider Haldol if agitated Stage III/IV chronic kidney disease - creatinine has actually improved into the stage III GFR range. Chronic lower back pain - mild symptoms at this time. -Scheduled acetaminophen 1000 mg 3 times a day Maintenance issues - - DVT prophylaxis - mechanical - GI prophylaxis - not indicated - Nutrition - pured diet - Peacock catheter - chronic suprapubic Disposition - [facility] when a bed is available on Saturday. Primary care physician - Dr. Mackenzie Parkinson M.D.
[2019-06-14] MEDS: Acetaminophen 500 MG Tab PO SCH ×2 (14:10→20:53)
[2019-06-14] MEDS: Simvastatin 20 MG Tab PO SCH (20:53)
[2019-06-14] MEDS: Melatonin 3 MG Tab PO SCH (20:53)
[2019-06-15] MEDS: Cephalexin 250 MG Cap PO SCH ×2 (08:35→20:58)
[2019-06-15] MEDS: Lactobacillus Rhamnosus GG (Probiotic) Cap PO SCH ×2 (08:35→20:59)
[2019-06-15] MEDS: Ferrous Sulfate 325 MG Tab PO SCH (08:35)
[2019-06-15] MEDS: Acetaminophen 500 MG Tab PO SCH ×3 (08:36→20:58)
--- NOTE | 2019-06-15 13:13 | PCM.PN ---
- General Info Date of Service: 06/15/19 Subjective Update: Mr. Cheatham has been stable over the last 24 hours, currently awaiting safe discharge plan with [facility] placement. He is unable to provide meaningful history concerning symptoms or review of systems because of significant dementia. - Patient Data Vitals - Most Recent: Last Vital Signs Temp 96.9 F 06/15/19 12:30 Pulse 73 06/15/19 12:30 Resp 14 06/15/19 12:30 BP 92/50 L 06/15/19 12:32 Pulse Ox 94 L 06/15/19 12:30 Weight - Most Recent: 121 lb 14.65 oz I&O - Last 24 Hours: Intake & Output 06/14/19 06/15/19 06/15/19 22:59 06:59 14:59 Intake Total 1200 120 720 Output Total 550 250 Balance 650 -130 720 Med Orders - Current: Current Medications Acetaminophen (Tylenol Extra Strength) 1,000 mg PO TID [facility] Last Admin: 06/15/19 08:36 Dose: 1,000 mg Cephalexin (Keflex) 500 mg PO BID [facility] Last Admin: 06/15/19 08:35 Dose: 500 mg Ferrous Sulfate (Ferrous Sulfate) 325 mg PO DAILY [facility] Last Admin: 06/15/19 08:35 Dose: 325 mg Haloperidol Lactate (Haldol) 2 mg IVPUSH Q2H PRN PRN Reason: Agitation Lactobacillus Rhamnosus (Culturelle) 1 cap PO BID [facility] Last Admin: 06/15/19 08:35 Dose: 1 cap Lorazepam (Ativan) 0.5 mg IVPUSH Q4H PRN PRN Reason: Nausea/Vomiting Last Admin: 06/10/19 17:54 Dose: 0.5 mg Magnesium Hydroxide (Milk Of Magnesia) 30 ml PO Q12H PRN PRN Reason: Constipation Melatonin (Melatonin) 9 mg PO BEDTIME [facility] Last Admin: 06/14/19 20:53 Dose: 9 mg (Paricalcitol [ (Paricalcitol] 2 Mcg)) 2 mcg PO MoWeFr@0900 [facility] Last Admin: 06/15/19 11:07 Dose: Not Given Ondansetron HCl (Zofran Odt) 4 mg PO Q6H PRN PRN Reason: Nausea able to take PO Ondansetron HCl (Zofran) 4 mg IV Q6H PRN PRN Reason: Nausea/Vomiting Senna/Docusate Sodium (Senna Plus) 1 tab PO BID PRN PRN Reason: Constipation Simvastatin (Zocor) 20 mg PO BEDTIME [facility] Last Admin: 06/14/19 20:53 Dose: 20 mg Sodium Chloride (Saline Flush) 10 ml FLUSH ASDIRECTED PRN PRN Reason: Keep Vein Open Tramadol HCl (Ultram) 50 mg PO Q8H PRN PRN Reason: Pain (moderate 4-6) Discontinued Medications Acetaminophen (Tylenol) 650 mg PO Q4H PRN PRN Reason: Pain (Mild 1-3)/fever Last Admin: 06/14/19 11:02 Dose: 650 mg Cephalexin (Keflex) 500 mg PO BID [facility] Haloperidol Lactate (Haldol) 1 mg IVPUSH Q4H PRN PRN Reason: Agitation Last Admin: 06/10/19 15:37 Dose: 1 mg Ceftriaxone Sodium 2 gm/ (Sodium Chloride) 50 mls @ 100 mls/hr IV Q24H [facility] Last Admin: 06/12/19 14:51 Dose: Not Given Sodium Chloride (Normal Saline) 500 mls @ 999 mls/hr IV .BOLUS ONE Stop: 06/10/19 13:18 Last Admin: 06/10/19 14:48 Dose: 999 mls/hr Sodium Chloride (Normal Saline) 1,000 mls @ 100 mls/hr IV ASDIRECTED [facility] Last Admin: 06/11/19 09:31 Dose: 100 mls/hr Acetaminophen 1,000 mg/ Premix 100 mls @ 400 mls/hr IV NOW ONE Stop: 06/10/19 18:19 Last Admin: 06/10/19 18:29 Dose: 400 mls/hr - Exam General: Alert, Cooperative, No Acute Distress. 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 Urine culture grew out Klebsiella. -Continue cephalexin with plan to treat for 7 days Dementia without behavioral disturbance - continue history of dementia. Moderate cognitive deficits. Mild confusion but no major behavior issues. -Melatonin at bedtime -Consider Haldol if agitated Stage III/IV chronic kidney disease - creatinine has actually improved into the stage III GFR range. Chronic lower back pain - mild symptoms at this time. -Scheduled acetaminophen 1000 mg 3 times a day Maintenance issues - - DVT prophylaxis - mechanical - GI prophylaxis - not indicated - Nutrition - pured diet - Peacock catheter - chronic suprapubic Disposition - [facility] a bed is available on Saturday. Primary care physician - Dr. Mann
[2019-06-15] MEDS: Melatonin 3 MG Tab PO SCH (20:59)
[2019-06-15] MEDS: Simvastatin 20 MG Tab PO SCH (20:59)
[2019-06-16 07:12] VITALS: BP 119/50
[2019-06-16] MEDS: Lactobacillus Rhamnosus GG (Probiotic) Cap PO SCH (09:22)
[2019-06-16] MEDS: Acetaminophen 500 MG Tab PO SCH (09:22)
[2019-06-16] MEDS: Cephalexin 250 MG Cap PO SCH (09:22)
[2019-06-16] MEDS: Ferrous Sulfate 325 MG Tab PO SCH (09:23)
--- NOTE | 2019-06-16 11:58 | PCM.DCSUM1 ---
Discharge Summary - Hospital Course Brief History: Mr. Cheatham is an 88-year-old gentleman who was admitted through the emergency department with increased weakness and lethargy secondary to underlying urinary tract infection. - Discharge Data Discharge Date: 06/16/19 Discharge Disposition: DC/Tfer to SNF 03 Condition: Fair - Discharge Diagnosis/Problem(s) (1) Parkinson disease SNOMED Code(s): 67608782 ICD Code: G20 - PARKINSON'S DISEASE Status: Acute Current Visit: Yes (2) Complicated urinary tract infection SNOMED Code(s): 18143437 ICD Code: N39.0 - URINARY TRACT INFECTION, SITE NOT SPECIFIED Status: Acute Current Visit: Yes (3) CKD (chronic kidney disease), stage IV SNOMED Code(s): 246945571 ICD Code: N18.4 - CHRONIC KIDNEY DISEASE, STAGE 4 (SEVERE) Status: Chronic Current Visit: Yes (4) Dementia without behavioral disturbance SNOMED Code(s): 68886629 ICD Code: F03.90 - UNSPECIFIED DEMENTIA WITHOUT BEHAVIORAL DISTURBANCE Status: Chronic Current Visit: Yes Qualifiers: Dementia type: unspecified type Qualified Code(s): F03.90 - Unspecified dementia without behavioral disturbance - Patient Summary/Data Consults: Consultations 06/11/19 07:00 PT Evaluation and Treatment [CONS] Routine Please Evaluate and Treat. PT Reason for Consult: Strengthening This query below is only for informational purposes and is not editable. Hospital Course: Mr. Cheatham presented as a direct admission from the clinic. He does have dementia and some of the history is gathered from his and daughter. Part of the history is gathered from the patient. He initially presented to the clinic with weakness as well as a change in the color of his urine and fever. Things have progressed over the past 48 hours when they first noticed some weakness. He has been more weak and today could not get out of bed. His urine has become dark. Fevers have been present off and on for the last 48 hours and were as high as 101.4. He has been more confused than usual. Is complaining of bilateral knee pain. He has a history of urinary tract infections and they feel this presentation is very similar to previous ones. Urinalysis in the clinic suggestive of infection. Patient was borderline hypotensive. On admission he was given IV fluids for hydration, urine culture and blood cultures were obtained. He was started on IV antibiotic therapy with ceftriaxone. Blood cultures remain negative throughout his hospital stay, urine culture grew out Klebsiella and he was transitioned oral antibiotic therapy with cephalexin. By the time of discharge he had completed an adequate course of antibiotic therapy. He was treated with probiotic therapy throughout his hospital stay. Family felt that there were no longer able to provide care for him at home. He remained in the hospital until a safe discharge plan could be accomplished with retirement placement. At the retirement he will receive daily physical therapy and occupational therapy. Activity will be as tolerated and he will resume his usual diet. - Patient Instructions Diet: Usual Diet as Tolerated Activity: As Tolerated Other/Special Instructions: Discharge to retirement for restorative physical therapy and occupational therapy - Discharge Plan *PRESCRIPTION DRUG MONITORING PROGRAM REVIEWED*: Not Applicable *COPY OF PRESCRIPTION DRUG MONITORING REPORT IN PATIENT JON: Not Applicable Prescriptions/Med Rec: Lactobacillus Rhamnosus GG [Culturelle] 1 cap PO BID #60 cap Home Medications: Home Meds Simvastatin 20 mg PO BEDTIME 02/02/16 [History] Ferrous Sulfate 325 mg PO DAILY 06/10/19 [History] traMADol HCl [Tramadol HCl] 50 mg PO Q8H PRN 06/10/19 [History] Lactobacillus Rhamnosus GG [Culturelle] 1 cap PO BID #60 cap 06/16/19 [Rx] - Discharge Summary/Plan Comment DC Time >30 min.: No - Patient Data Vitals - Most Recent: Last Vital Signs Temp 96.3 F 06/16/19 07:00 Pulse 80 06/16/19 07:00 Resp 16 06/16/19 07:00 BP 119/50 L 06/16/19 07:00 Pulse Ox 97 06/16/19 07:00 Weight - Most Recent: 121 lb 14.65 oz I&O - Last 24 hours: Intake & Output 06/15/19 06/16/19 06/16/19 22:59 06:59 14:59 Intake Total 840 Output Total 250 550 350 Balance 590 -550 -350 Med Orders - Current: Current Medications Acetaminophen (Tylenol Extra Strength) 1,000 mg PO TID [facility] Last Admin: 06/16/19 09:22 Dose: 1,000 mg Cephalexin (Keflex) 500 mg PO BID [facility] Last Admin: 06/16/19 09:22 Dose: 500 mg Ferrous Sulfate (Ferrous Sulfate) 325 mg PO DAILY [facility] Last Admin: 06/16/19 09:23 Dose: 325 mg Haloperidol Lactate (Haldol) 2 mg IVPUSH Q2H PRN PRN Reason: Agitation Lactobacillus Rhamnosus (Culturelle) 1 cap PO BID [facility] Last Admin: 06/16/19 09:22 Dose: 1 cap Lorazepam (Ativan) 0.5 mg IVPUSH Q4H PRN PRN Reason: Nausea/Vomiting Last Admin: 06/10/19 17:54 Dose: 0.5 mg Magnesium Hydroxide (Milk Of Magnesia) 30 ml PO Q12H PRN PRN Reason: Constipation Melatonin (Melatonin) 9 mg PO BEDTIME [facility] Last Admin: 06/15/19 20:59 Dose: 9 mg (Paricalcitol [ (Paricalcitol] 2 Mcg)) 2 mcg PO MoWeFr@0900 [facility] Last Admin: 06/15/19 11:07 Dose: Not Given Ondansetron HCl (Zofran Odt) 4 mg PO Q6H PRN PRN Reason: Nausea able to take PO Ondansetron HCl (Zofran) 4 mg IV Q6H PRN PRN Reason: Nausea/Vomiting Senna/Docusate Sodium (Senna Plus) 1 tab PO BID PRN PRN Reason: Constipation Simvastatin (Zocor) 20 mg PO BEDTIME [facility] Last Admin: 06/15/19 20:59 Dose: 20 mg Sodium Chloride (Saline Flush) 10 ml FLUSH ASDIRECTED PRN PRN Reason: Keep Vein Open Tramadol HCl (Ultram) 50 mg PO Q8H PRN PRN Reason: Pain (moderate 4-6) Discontinued Medications Acetaminophen (Tylenol) 650 mg PO Q4H PRN PRN Reason: Pain (Mild 1-3)/fever Last Admin: 06/14/19 11:02 Dose: 650 mg Cephalexin (Keflex) 500 mg PO BID [facility] Haloperidol Lactate (Haldol) 1 mg IVPUSH Q4H PRN PRN Reason: Agitation Last Admin: 06/10/19 15:37 Dose: 1 mg Ceftriaxone Sodium 2 gm/ (Sodium Chloride) 50 mls @ 100 mls/hr IV Q24H [facility] Last Admin: 06/12/19 14:51 Dose: Not Given Sodium Chloride (Normal Saline) 500 mls @ 999 mls/hr IV .BOLUS ONE Stop: 06/10/19 13:18 Last Admin: 06/10/19 14:48 Dose: 999 mls/hr Sodium Chloride (Normal Saline) 1,000 mls @ 100 mls/hr IV ASDIRECTED [facility] Last Admin: 06/11/19 09:31 Dose: 100 mls/hr Acetaminophen 1,000 mg/ Premix 100 mls @ 400 mls/hr IV NOW ONE Stop: 06/10/19 18:19 Last Admin: 06/10/19 18:29 Dose: 400 mls/hr - Exam Quality Assessment: Reports: DVT Prophylaxis General: Reports: Alert, Cooperative, No Acute Distress. Denies: Oriented Lungs: Reports: Clear to Auscultation, Normal Respiratory Effort Cardiovascular: Reports: Regular Rate, Regular Rhythm, No Murmurs GI/Abdominal Exam: Soft, Non-Tender, No Organomegaly, No Distention Extremities: Non-Tender, No Pedal Edema
== END 2019-06-16 12:40 | DRG 690 ==
LOC: JP.2SS 12:15 → JP.MS 18:15
PROVIDERS: ADMIT Internal Medicine; ATTEND Hospitalist
DX: N39.0 Urinary tract infection, site not specified (principal); N18.4 Chronic kidney disease, stage 4 (severe); N13.8 Other obstructive and reflux uropathy; G20 Parkinson's disease; F03.90 Unspecified dementia, unspecified severity, without behavioral disturbance, psychotic disturbance, mood disturbance, and anxiety; N40.1 Benign prostatic hyperplasia with lower urinary tract symptoms; M25.562 Pain in left knee; M25.561 Pain in right knee; I95.9 Hypotension, unspecified; B96.89 Other specified bacterial agents as the cause of diseases classified elsewhere; H54.7 Unspecified visual loss; E78.00 Pure hypercholesterolemia, unspecified; K59.09 Other constipation; G89.29 Other chronic pain; Z96.649 Presence of unspecified artificial hip joint; Z66 Do not resuscitate; M54.5 Low back pain; Z79.899 Other long term (current) drug therapy; Z86.010 Personal history of colon polyps; Z90.89 Acquired absence of other organs; Z98.49 Cataract extraction status, unspecified eye
CPT/HCPCS: 36415; 80048; 83605; 85025; 85027; 87086; 87088; 87186; 97110-GP; 97116-GP; 97161-GP; 97530-GP; A9270-GY; J0131; J0696; J1630; J2060; J7030; J7040; J7050

== ENCOUNTER 2019-07-07 19:36 | Inpatient (IN) | payer MEDICARE, BC ==
--- NOTE | 2019-07-07 20:25 | EDM.PDOC ---
ED HPI GENERAL MEDICAL PROBLEM - General Chief Complaint: Fever Stated Complaint: [facility] Time Seen by Provider: 07/07/19 20:17 Source of Information: Reports: Patient, Family, RN Notes Reviewed History Limitations: Reports: Physical Impairment - History of Present Illness INITIAL COMMENTS - FREE TEXT/NARRATIVE: 81-year-old gentleman presents emergency department today via EMS services, he is a transfer from the snf snf staff did call concerned about pneumonia versus urinary tract infection they did do some blood work unfortunately those records are unavailable to us also started Levaquin. Gentleman is confused and difficult speech pattern, therefore limited review of systems and history is obtained - Related Data Allergies Allergy/AdvReac Type Severity Reaction Status Date / Time No Known Allergies Allergy Verified 07/07/19 20:20 Home Meds: Home Meds Simvastatin 20 mg PO BEDTIME 02/02/16 [History] Ferrous Sulfate 325 mg PO DAILY 06/10/19 [History] traMADol HCl [Tramadol HCl] 50 mg PO Q8H PRN 06/10/19 [History] Lactobacillus Rhamnosus GG [Culturelle] 1 cap PO BID #60 cap 06/16/19 [Rx] Acetaminophen [Pain Reliever] 650 mg PO TID 07/07/19 [History] Levofloxacin [Levaquin] 750 mg PO DAILY 07/07/19 [History] Past Medical History HEENT History: Reports: Cataract, Impaired Vision, Other (See Below) Other HEENT History: "bulge on the retina" Cardiovascular History: Reports: High Cholesterol, Syncope Gastrointestinal History: Reports: Chronic Constipation, Colon Polyp Genitourinary History: Reports: Renal Disease Other Genitourinary History: "stage 4 kidney disease" Musculoskeletal History: Reports: Back Pain, Chronic Neurological History: Reports: Vertigo Psychiatric History: Reports: Dementia - Infectious Disease History Infectious Disease History: Reports: Chicken Pox - Past Surgical History Head Surgeries/Procedures: Reports: None HEENT Surgical History: Reports: Cataract Surgery, Tonsillectomy Cardiovascular Surgical History: Reports: None GI Surgical History: Reports: Colonoscopy Male Surgical History: Reports: Ureteral Stent Neurological Surgical History: Reports: None Musculoskeletal Surgical History: Reports: Hip Replacement Dermatological Surgical History: Reports: None Social & Family History - Family History Family Medical History: Noncontributory Cardiac: Reports: Bypass, CAD Musculoskeletal: Reports: Other (See Below) Other Musculoskeletal Family History: "hump back" Neurological: Reports: Alzheimers Disease, Parkinson's Oncologic: Reports: Colon, Pancreatic - Caffeine Use Caffeine Use: Reports: Coffee, Tea ED ROS GENERAL - Review of Systems Review Of Systems: Unable To Obtain ED EXAM, GENERAL - Physical Exam Exam: See Below Free Text/Narrative:: General: Elderly male, not in any distress, alert oriented 1 HEENT: head is atraumatic normocephalic, eyes pupils equal round reactive to light, sclera clear no conjunctivitis appreciated. Ears tympanic membranes clear and prescott landmarks and light reflex are present bilaterally canals are clear. Nose no septal deviation, nares are clear, no blood present. Mouth mucosa is dry and black tongue no erythema or exudate noted in soft palate, tongue is midline uvula is midline, dentition is intact. Neck: Supple no thyromegaly no tracheal deviation. Nodes: Cervical nodes subclavicular nodes nontender no palpable lymphadenopathy noted. Lungs: Breath sounds are distant unappreciated any adventitious noises CV: Regular rate and rhythm S1 and S2 appreciated no murmurs rubs or gallops noted. Abdomen: Soft, nontender, no palpable masses or organomegaly appreciated, no distention no guarding bowel sounds are present, . Neuro: GCS 15 Course - Vital Signs Last Recorded V/S: Last Vital Signs Temp 99.2 F 07/07/19 20:26 Pulse 93 07/07/19 21:33 Resp 24 H 07/07/19 20:26 BP 130/59 L 07/07/19 21:33 Pulse Ox 96 07/07/19 20:26 - Orders/Labs/Meds Orders: Active Orders 24 hr Category Date Time Status Vital Signs [RC] Q1H Care 07/07/19 20:21 Active CULTURE BLOOD [BC] Urgent Lab 07/07/19 20:30 Received CULTURE BLOOD [BC] Urgent Lab 07/07/19 20:38 Received CULTURE URINE [RM] Urgent Lab 07/07/19 21:31 Ordered Lactated Ringers [Ringers, Lactated] 1,000 ml Med 07/07/19 20:30 Active IV ASDIRECTED cefTRIAXone [Rocephin] 2 gm Med 07/07/19 21:45 Ordered Sodium Chloride 0.9% [Normal Saline] 50 ml IV Q24H Blood Culture x2 Reflex Set [OM.PC] Urgent Oth 07/07/19 20:21 Ordered Medication Orders Lactated Ringer's (Ringers, Lactated) 1,000 mls @ 999 mls/hr IV ASDIRECTED [facility] Last Admin: 07/07/19 20:29 Dose: 999 mls/hr Ceftriaxone Sodium 2 gm/ (Sodium Chloride) 50 mls @ 100 mls/hr IV Q24H [facility] Labs: Laboratory Tests 07/07/19 07/07/19 07/07/19 Range/Units 20:21 20:30 20:30 WBC 24.4 H (4.5-11.0) K/uL RBC 3.24 L (4.30-5.90) M/uL Hgb 10.6 L (12.0-15.0) g/dL Hct 32.7 L (40.0-54.0) % MCV 101 H (80-98) fL MCH 33 H (27-31) pg MCHC 32 (32-36) % Plt Count 238 (150-400) K/uL Neut % (Auto) 92 H (36-66) % Lymph % (Auto) 3 L (24-44) % [place] % (Auto) 5 (2-6) % Eos % (Auto) 0 L (2-4) % Baso % (Auto) 0 (0-1) % Lactic Acid 1.4 (0.4-2.0) mmol/L Total Bilirubin 0.6 (0.2-1.0) mg/dL Direct Bilirubin 0.14 (0.0-0.2) mg/dL Indirect Bilirubin 0.46 AST 21 (15-37) U/L ALT 17 (12-78) U/L Alkaline Phosphatase 161 H (46-116) U/L C-Reactive Protein 5.42 H (0.0-0.3) mg/dL Total Protein 7.0 (6.4-8.2) g/dL Albumin 3.1 L (3.4-5.0) g/dL Globulin 3.9 H (2.3-3.5) g/dL Albumin/Globulin Ratio 0.8 L (1.2-2.2) Urine Color (YELLOW) Urine Appearance (CLEAR) Urine pH (5.0-8.0) Ur Specific [place] (1.008-1.030) Urine Protein (NEGATIVE) mg/dL Urine Glucose (UA) (NEGATIVE) mg/dL Urine Ketones (NEGATIVE) mg/dL Urine Occult Blood (NEGATIVE) Urine Nitrite (NEGATIVE) Urine Bilirubin (NEGATIVE) Urine Urobilinogen (0.2-1.0) EU/dL Ur Leukocyte Esterase (NEGATIVE) Urine RBC (0-5) Urine WBC (0-5) Ur Epithelial Cells Amorphous Sediment Urine Bacteria Urine Mucus 07/07/19 Range/Units 20:49 WBC (4.5-11.0) K/uL RBC (4.30-5.90) M/uL Hgb (12.0-15.0) g/dL Hct (40.0-54.0) % MCV (80-98) fL MCH (27-31) pg MCHC (32-36) % Plt Count (150-400) K/uL Neut % (Auto) (36-66) % Lymph % (Auto) (24-44) % [place] % (Auto) (2-6) % Eos % (Auto) (2-4) % Baso % (Auto) (0-1) % Lactic Acid (0.4-2.0) mmol/L Total Bilirubin (0.2-1.0) mg/dL Direct Bilirubin (0.0-0.2) mg/dL Indirect Bilirubin AST (15-37) U/L ALT (12-78) U/L Alkaline Phosphatase (46-116) U/L C-Reactive Protein (0.0-0.3) mg/dL Total Protein (6.4-8.2) g/dL Albumin (3.4-5.0) g/dL Globulin (2.3-3.5) g/dL Albumin/Globulin Ratio (1.2-2.2) Urine Color Yellow (YELLOW) Urine Appearance Cloudy A (CLEAR) Urine pH 6.0 (5.0-8.0) Ur Specific [place] 1.020 (1.008-1.030) Urine Protein 30 H (NEGATIVE) mg/dL Urine Glucose (UA) Negative (NEGATIVE) mg/dL Urine Ketones Negative (NEGATIVE) mg/dL Urine Occult Blood Small H (NEGATIVE) Urine Nitrite Positive H (NEGATIVE) Urine Bilirubin Negative (NEGATIVE) Urine Urobilinogen 0.2 (0.2-1.0) EU/dL Ur Leukocyte Esterase Moderate H (NEGATIVE) Urine RBC 0-5 (0-5) Urine WBC Packed H (0-5) Ur Epithelial Cells Rare Amorphous Sediment Few Urine Bacteria Many Urine Mucus Not seen Meds: Medications Generic Name Dose Route Start Last Admin Trade Name Sal PRN Reason Stop Dose Admin Lactated Ringer's 1,000 mls @ 999 mls/hr 07/07/19 20:30 07/07/19 20:29 Ringers, Lactated IV 999 mls/hr ASDIRECTED [facility] Administration Ceftriaxone Sodium 2 gm/ 50 mls @ 100 mls/hr 07/07/19 21:45 Sodium Chloride IV Q24H [facility] Departure - Departure Time of Disposition: 21:35 Disposition: Admitted As Inpatient 66 Condition: Poor Clinical Impression: Urinary tract infection associated with catheterization of urinary tract Qualifiers: Indwelling urinary catheter type: indwelling urethral catheter Encounter type: initial encounter Qualified Code(s): T83.511A - Infection and inflammatory reaction due to indwelling urethral catheter, initial encounter; N39.0 - Urinary tract infection, site not specified - Discharge Information Referrals: PCP,None [Primary Care Provider] - Forms: ED Department Discharge - My Orders Last 24 Hours: My Active Orders 07/07/19 20:21 Vital Signs [RC] Q1H Blood Culture x2 Reflex Set [OM.PC] Urgent 07/07/19 20:30 CULTURE BLOOD [BC] Urgent Lactated Ringers [Ringers, Lactated] 1,000 ml IV ASDIRECTED 07/07/19 20:38 CULTURE BLOOD [BC] Urgent 07/07/19 21:31 CULTURE URINE [RM] Urgent 07/07/19 21:45 cefTRIAXone [Rocephin] 2 gm Sodium Chloride 0.9% [Normal Saline] 50 ml IV Q24H - Assessment/Plan Last 24 Hours: My Active Orders 07/07/19 20:21 Vital Signs [RC] Q1H Blood Culture x2 Reflex Set [OM.PC] Urgent 07/07/19 20:30 CULTURE BLOOD [BC] Urgent Lactated Ringers [Ringers, Lactated] 1,000 ml IV ASDIRECTED 07/07/19 20:38 CULTURE BLOOD [BC] Urgent 07/07/19 21:31 CULTURE URINE [RM] Urgent 07/07/19 21:45 cefTRIAXone [Rocephin] 2 gm Sodium Chloride 0.9% [Normal Saline] 50 ml IV Q24H Plan: Assessment Acuity = acute Site and laterality = urinary tract infection complicated in a patient with urinary catheter and snf resident Etiology = probable bacterial cause Manifestations = change in mental status, fever Location of injury = Home Lab values = WBC elevated 24.4 consistent leukocytosis, 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 Mann attending on-call kindly agreed to come and evaluate the patient emergency department at 2115 has been given 1 L fluids blood cultures are pending urine cultures are pending at about asked Rocephin initiated 2 g This note was dictated using [employer] voice recognition software please call with any questions on syntax or grammar.
[2019-07-07] MEDS ORDERED: Lactated Ringers 1,000 ML IV SCH (20:30)
--- NOTE | 2019-07-07 21:05 | CRLCR ---
INDICATION: fever TECHNIQUE: Chest 1 view. COMPARISON: None. FINDINGS: Cardiovascular and mediastinum: Heart size and vasculature are normal in caliber and appearance. Mediastinum is within normal limits. Lungs and pleural space: Lungs are clear. No sign of infiltrate or mass. No sign of pleural effusion. No pneumothorax. Bones and soft tissues: No significant findings. IMPRESSION: Unremarkable chest. Dictated by: Kendrick Tobias MD @ 07/07/2019 21:02:54 (Electronically Signed)
[2019-07-07] MEDS ORDERED: cefTRIAXone 2 GM in Sodium Chloride 0.9% 50 ML IV SCH (21:45)
[2019-07-07] MEDS ORDERED: Ondansetron 4 MG/2 ML SDV IV PRN (23:21)
--- NOTE | 2019-07-07 23:21 | PCM.HP.2 ---
H&P History of Present Illness - General Date of Service: 07/07/19 Admit Problem/Dx: Urinary tract infection, delirium Source of Information: Patient, EMS, Family History Limitations: Reports: Altered Mental Status - History of Present Illness Initial Comments - Free Text/Narative: 89-year-old male with past medical history of Parkinson's disease, cognitive impairment, dementia, urinary catheter associated with recurrent urinary tract infections, chronic lower back pain, chronic kidney disease, benign prostatic hypertrophy came to the emergency department with the concerns of delirium, hallucinations. Patient has delirium symptoms intermittently since last three days which is gradually progressing, patient developed one episode of fever with that concerns patient came to the hospital. In the ED patient urine showed urinary tract infection and received one dose of ceftriaxone. Patient recently admitted into the hospital with UTI and complicated with C. diff infection. Patient is in DNR DNI status. Other review of systems are not significant - Related Data Allergies/Adverse Reactions: Allergies Allergy/AdvReac Type Severity Reaction Status Date / Time No Known Allergies Allergy Verified 07/07/19 20:20 Home Medications: Home Meds Simvastatin 20 mg PO BEDTIME 02/02/16 [History] Ferrous Sulfate 325 mg PO DAILY 06/10/19 [History] Acetaminophen [Pain Reliever] 650 mg PO TID 07/07/19 [History] Carbidopa/Levodopa [Carbidopa-Levodopa 25-100] 1 tab PO QID #120 tablet [Rx] Cefdinir 300 mg PO BID #8 capsule 07/10/19 [Rx] Lactobacillus Rhamnosus GG [Culturelle] 2 cap PO BID #60 cap 07/10/19 [Rx] traMADol HCl [Tramadol HCl] 50 mg PO Q8H PRN #30 tablet 07/10/19 [Rx] Past Medical History HEENT History: Reports: Cataract, Impaired Vision, Other (See Below) Other HEENT History: "bulge on the retina" Cardiovascular History: Reports: High Cholesterol, Syncope Gastrointestinal History: Reports: Chronic Constipation, Colon Polyp Genitourinary History: Reports: Renal Disease Other Genitourinary History: "stage 4 kidney disease" Musculoskeletal History: Reports: Back Pain, Chronic Neurological History: Reports: Vertigo Psychiatric History: Reports: Dementia - Infectious Disease History Infectious Disease History: Reports: Chicken Pox - Past Surgical History Head Surgeries/Procedures: Reports: None HEENT Surgical History: Reports: Cataract Surgery, Tonsillectomy Cardiovascular Surgical History: Reports: None GI Surgical History: Reports: Colonoscopy Male Surgical History: Reports: Ureteral Stent Neurological Surgical History: Reports: None Musculoskeletal Surgical History: Reports: Hip Replacement Dermatological Surgical History: Reports: None Social & Family History - Family History Family Medical History: Noncontributory Cardiac: Reports: Bypass, CAD Musculoskeletal: Reports: Other (See Below) Other Musculoskeletal Family History: "hump back" Neurological: Reports: Alzheimers Disease, Parkinson's Oncologic: Reports: Colon, Pancreatic - Tobacco Use Smoking Status *Q: Unknown Ever Smoked - Caffeine Use Caffeine Use: Reports: Coffee, Tea H&P Review of Systems - Review of Systems: Review Of Systems: See Below General: Reports: Fever, Weakness, Fatigue. Denies: Chills, Night Sweats Pulmonary: Denies: Shortness of Breath, Wheezing, Pleuritic Chest Pain Cardiovascular: Denies: Chest Pain, Palpitations Gastrointestinal: Denies: Abdominal Pain, Anorexia, Black Stool, Bloody Stool Genitourinary: Denies: Dysuria, Frequency, Burning Psychiatric: Reports: Confusion, Agitation, Hallucinations. Denies: Depression Neurological: Reports: Confusion Hematologic/Lymphatic: Denies: Anemia, Easy Bleeding Immunologic: Denies: Anaphylaxis Exam - Exam Exam: See Below - Vital Signs Vital Signs: Last Vital Signs Temp 37.9 C 07/07/19 22:21 Pulse 95 07/07/19 22:59 Resp 24 H 07/07/19 20:26 BP 104/48 L 07/07/19 22:59 Pulse Ox 98 07/07/19 22:59 Weight: 57.606 kg - Exam General: No: Alert, Oriented Neck: Supple, Trachea Midline Lungs: Clear to Auscultation, Normal Respiratory Effort Cardiovascular: Regular Rate, Regular Rhythm GI/Abdominal Exam: Normal Bowel Sounds, Soft, Non-Tender, No Organomegaly Extremities: Normal Inspection, Normal Range of Motion, Non-Tender, No Pedal Edema Skin: Warm, Dry, Intact Neuro Extensive - Mental Status: No: Alert, Oriented x3 Psychiatric: No: Alert, Normal Affect, Normal Mood - Patient Data Lab Results Last 24 hrs: Laboratory Results - last 24 hr 07/07/19 07/07/19 07/07/19 Range/Units 20:21 20:30 20:30 WBC 24.4 H (4.5-11.0) K/uL RBC 3.24 L (4.30-5.90) M/uL Hgb 10.6 L (12.0-15.0) g/dL Hct 32.7 L (40.0-54.0) % MCV 101 H (80-98) fL MCH 33 H (27-31) pg MCHC 32 (32-36) % Plt Count 238 (150-400) K/uL Neut % (Auto) 92 H (36-66) % Lymph % (Auto) 3 L (24-44) % [place]key % (Auto) 5 (2-6) % Eos % (Auto) 0 L (2-4) % Baso % (Auto) 0 (0-1) % Lactic Acid 1.4 (0.4-2.0) mmol/L Total Bilirubin 0.6 (0.2-1.0) mg/dL Direct Bilirubin 0.14 (0.0-0.2) mg/dL Indirect Bilirubin 0.46 AST 21 (15-37) U/L ALT 17 (12-78) U/L Alkaline Phosphatase 161 H (46-116) U/L C-Reactive Protein 5.42 H (0.0-0.3) mg/dL Total Protein 7.0 (6.4-8.2) g/dL Albumin 3.1 L (3.4-5.0) g/dL Globulin 3.9 H (2.3-3.5) g/dL Albumin/Globulin Ratio 0.8 L (1.2-2.2) Urine Color (YELLOW) Urine Appearance (CLEAR) Urine pH (5.0-8.0) Ur Specific [place] (1.008-1.030) Urine Protein (NEGATIVE) mg/dL Urine Glucose (UA) (NEGATIVE) mg/dL Urine Ketones (NEGATIVE) mg/dL Urine Occult Blood (NEGATIVE) Urine Nitrite (NEGATIVE) Urine Bilirubin (NEGATIVE) Urine Urobilinogen (0.2-1.0) EU/dL Ur Leukocyte Esterase (NEGATIVE) Urine RBC (0-5) Urine WBC (0-5) Ur Epithelial Cells Amorphous Sediment Urine Bacteria Urine Mucus 07/07/19 Range/Units 20:49 WBC (4.5-11.0) K/uL RBC (4.30-5.90) M/uL Hgb (12.0-15.0) g/dL Hct (40.0-54.0) % MCV (80-98) fL MCH (27-31) pg MCHC (32-36) % Plt Count (150-400) K/uL Neut % (Auto) (36-66) % Lymph % (Auto) (24-44) % Sharkey % (Auto) (2-6) % Eos % (Auto) (2-4) % Baso % (Auto) (0-1) % Lactic Acid (0.4-2.0) mmol/L Total Bilirubin (0.2-1.0) mg/dL Direct Bilirubin (0.0-0.2) mg/dL Indirect Bilirubin AST (15-37) U/L ALT (12-78) U/L Alkaline Phosphatase (46-116) U/L C-Reactive Protein (0.0-0.3) mg/dL Total Protein (6.4-8.2) g/dL Albumin (3.4-5.0) g/dL Globulin (2.3-3.5) g/dL Albumin/Globulin Ratio (1.2-2.2) Urine Color Yellow (YELLOW) Urine Appearance Cloudy A (CLEAR) Urine pH 6.0 (5.0-8.0) Ur Specific [place] 1.020 (1.008-1.030) Urine Protein 30 H (NEGATIVE) mg/dL Urine Glucose (UA) Negative (NEGATIVE) mg/dL Urine Ketones Negative (NEGATIVE) mg/dL Urine Occult Blood Small H (NEGATIVE) Urine Nitrite Positive H (NEGATIVE) Urine Bilirubin Negative (NEGATIVE) Urine Urobilinogen 0.2 (0.2-1.0) EU/dL Ur Leukocyte Esterase Moderate H (NEGATIVE) Urine RBC 0-5 (0-5) Urine WBC Packed H (0-5) Ur Epithelial Cells Rare Amorphous Sediment Few Urine Bacteria Many Urine Mucus Not seen Result Diagrams: 07/10/19 04:00 07/10/19 04:00 - Problem List (1) History of Clostridium difficile infection SNOMED Code(s): 193553053, 522257420 ICD Code: Z86.19 - PERSONAL HISTORY OF OTHER INFECTIOUS AND PARASITIC DISEASES Status: Acute (2) Complicated urinary tract infection SNOMED Code(s): 71958265 ICD Code: N39.0 - URINARY TRACT INFECTION, SITE NOT SPECIFIED Status: Acute (3) Parkinson disease SNOMED Code(s): 17311976 ICD Code: G20 - PARKINSON'S DISEASE Status: Acute (4) Renal insufficiency SNOMED Code(s): 636179507, 580117246 ICD Code: N28.9 - DISORDER OF KIDNEY AND URETER, UNSPECIFIED Status: Acute (5) Sepsis SNOMED Code(s): 01760397 ICD Code: A41.9 - SEPSIS, UNSPECIFIED ORGANISM Status: Acute (6) Urinary tract infection associated with catheterization of urinary tract SNOMED Code(s): 772705592 ICD Code: T83.511A - I/I REACT D/T INDWELLING URETHRAL CATHETER, INIT; N39.0 - URINARY TRACT INFECTION, SITE NOT SPECIFIED Status: Acute Qualifiers: Indwelling urinary catheter type: indwelling urethral catheter Encounter type: initial encounter Qualified Code(s): T83.511A - Infection and inflammatory reaction due to indwelling urethral catheter, initial encounter; N39.0 - Urinary tract infection, site not specified (7) BPH loc w urin obs/LUTS SNOMED Code(s): 954409657 ICD Code: N40.1 - BENIGN PROSTATIC HYPERPLASIA WITH LOWER URINARY TRACT SYMP Status: Chronic (8) CKD (chronic kidney disease), stage IV SNOMED Code(s): 185114869 ICD Code: N18.4 - CHRONIC KIDNEY DISEASE, STAGE 4 (SEVERE) Status: Chronic (9) Chronic low back pain SNOMED Code(s): 745029404 ICD Code: M54.5 - LOW BACK PAIN; G89.29 - OTHER CHRONIC PAIN Status: Chronic (10) Dementia associated with Parkinson's disease SNOMED Code(s): 560889613 ICD Code: G20 - PARKINSON'S DISEASE; F02.80 - DEMENTIA IN OTH DISEASES CLASSD ELSWHR W/O BEHAVRL DISTURB Status: Chronic (11) Dementia without behavioral disturbance SNOMED Code(s): 94936628 ICD Code: F03.90 - UNSPECIFIED DEMENTIA WITHOUT BEHAVIORAL DISTURBANCE Status: Chronic Qualifiers: Dementia type: unspecified type Qualified Code(s): F03.90 - Unspecified dementia without behavioral disturbance Problem List Initiated/Reviewed/Updated: Yes Orders Last 24hrs: Active Orders 24 hr Category Date Time Status Vital Signs [RC] Q1H Care 07/07/19 20:21 Active CULTURE BLOOD [BC] Urgent Lab 07/07/19 20:30 Received CULTURE BLOOD [BC] Urgent Lab 07/07/19 20:38 Received CULTURE URINE [RM] Urgent Lab 07/07/19 21:35 Received Lactated Ringers [Ringers, Lactated] 1,000 ml Med 07/07/19 20:30 Active IV ASDIRECTED cefTRIAXone [Rocephin] 2 gm Med 07/07/19 21:45 Active Sodium Chloride 0.9% [Normal Saline] 50 ml IV Q24H Blood Culture x2 Reflex Set [OM.PC] Urgent Oth 07/07/19 20:21 Ordered Medication Orders Lactated Ringer's (Ringers, Lactated) 1,000 mls @ 999 mls/hr IV ASDIRECTED [facility] Last Admin: 07/07/19 20:29 Dose: 999 mls/hr Ceftriaxone Sodium 2 gm/ (Sodium Chloride) 50 mls @ 100 mls/hr IV Q24H [facility] Last Admin: 07/07/19 21:55 Dose: 100 mls/hr Assessment/Plan Comment:: 89-year-old male with past medical history of Parkinson's disease, dementia, chronic kidney disease states four, hyperkalemia, cognitive impairment, hypertension, and prostate hypertrophy, chronic lower back pain came to emergency department with the concerns of hallucination and diagnosed with urinary tract infection and admitted into the hospital in inpatient status for further management. Patient recently had Clostridium difficile infection with ceftriaxone we change antibiotic to gentamicin for only three days for complicated UTI will consult pharmacy for dosing CBC CMP tomorrow maintenance IV fluids continue all other home medications will continue probiotics Code status DNR DNI maintenance IV fluids normal saline 150 ML per hour continue catheter care regular diet inpatient status
[2019-07-07] MEDS ORDERED: Pantoprazole 40 MG Vial IV SCH (23:30)
[2019-07-07] MEDS ORDERED: Heparin Sodium 5,000 Units/ML Vial SUBCUT SCH (23:30)
[2019-07-07] MEDS ORDERED: SODIUM CHLORIDE 0.9% IV SCH (23:45)
[2019-07-07] MEDS ORDERED: GENTAMICIN IV SCH (23:45)
[2019-07-08] MEDS: Sodium Chloride 0.9% 1,000 ML IV SCH ×2 (00:34→08:25)
[2019-07-08] MEDS ORDERED: Lactobacillus Rhamnosus GG (Probiotic) Cap PO SCH (09:00)
[2019-07-08] MEDS ORDERED: Sodium Chloride 0.9% 1,000 ML IV SCH (09:00)
[2019-07-08] MEDS: Heparin Sodium 5,000 Units/ML Vial SUBCUT SCH ×2 (09:45→17:42)
--- NOTE | 2019-07-08 13:55 | PCM.PN ---
- General Info Date of Service: 07/08/19 Subjective Update: no acute events overnight. Heart rate has improved. Blood pressures have been stable. He remains confused but is more alert and interactive today. Temperature curve has trended down. Tolerating antibiotics so far. No diarrhea. Weak and requires assistance. Functional Status: Reports: Pain Controlled - Patient Data Vitals - Most Recent: Last Vital Signs Temp 37.7 C 07/08/19 13:09 Pulse 91 07/08/19 13:09 Resp 16 07/08/19 13:09 BP 101/56 L 07/08/19 13:09 Pulse Ox 92 L 07/08/19 13:09 Weight - Most Recent: 52.254 kg I&O - Last 24 Hours: Intake & Output 07/07/19 07/08/19 07/08/19 22:59 06:59 14:59 Intake Total 696 Output Total 500 Balance 196 Lab Results Last 24 Hours: Laboratory Results - last 24 hr 07/07/19 07/07/19 07/07/19 Range/Units 20:21 20:30 20:30 WBC 24.4 H (4.5-11.0) K/uL RBC 3.24 L (4.30-5.90) M/uL Hgb 10.6 L (12.0-15.0) g/dL Hct 32.7 L (40.0-54.0) % MCV 101 H (80-98) fL MCH 33 H (27-31) pg MCHC 32 (32-36) % Plt Count 238 (150-400) K/uL Neut % (Auto) 92 H (36-66) % Lymph % (Auto) 3 L (24-44) % Bacon % (Auto) 5 (2-6) % Eos % (Auto) 0 L (2-4) % Baso % (Auto) 0 (0-1) % Sodium (140-148) mmol/L Potassium (3.6-5.2) mmol/L Chloride (100-108) mmol/L Carbon Dioxide (21-32) mmol/L Anion Gap (5.0-14.0) mmol/L BUN (7-18) mg/dL Creatinine (0.8-1.3) mg/dL Est Cr Clr Drug Dosing mL/min Estimated GFR (MDRD) (>60) Glucose (74-106) mg/dL Lactic Acid 1.4 (0.4-2.0) mmol/L Calcium (8.5-10.1) mg/dL Total Bilirubin 0.6 (0.2-1.0) mg/dL Direct Bilirubin 0.14 (0.0-0.2) mg/dL Indirect Bilirubin 0.46 AST 21 (15-37) U/L ALT 17 (12-78) U/L Alkaline Phosphatase 161 H (46-116) U/L C-Reactive Protein 5.42 H (0.0-0.3) mg/dL Total Protein 7.0 (6.4-8.2) g/dL Albumin 3.1 L (3.4-5.0) g/dL Globulin 3.9 H (2.3-3.5) g/dL Albumin/Globulin Ratio 0.8 L (1.2-2.2) Urine Color (YELLOW) Urine Appearance (CLEAR) Urine pH (5.0-8.0) Ur Specific [place] (1.008-1.030) Urine Protein (NEGATIVE) mg/dL Urine Glucose (UA) (NEGATIVE) mg/dL Urine Ketones (NEGATIVE) mg/dL Urine Occult Blood (NEGATIVE) Urine Nitrite (NEGATIVE) Urine Bilirubin (NEGATIVE) Urine Urobilinogen (0.2-1.0) EU/dL Ur Leukocyte Esterase (NEGATIVE) Urine RBC (0-5) Urine WBC (0-5) Ur Epithelial Cells Amorphous Sediment Urine Bacteria Urine Mucus 07/07/19 07/07/19 07/08/19 Range/Units 20:49 23:55 05:32 WBC 25.0 H (4.5-11.0) K/uL RBC 2.88 L (4.30-5.90) M/uL Hgb 9.1 L (12.0-15.0) g/dL Hct 29.3 L (40.0-54.0) % MCV 102 H (80-98) fL MCH 32 H (27-31) pg MCHC 31 L (32-36) % Plt Count 209 (150-400) K/uL Neut % (Auto) 91 H (36-66) % Lymph % (Auto) 4 L (24-44) % Bacon % (Auto) 5 (2-6) % Eos % (Auto) 0 L (2-4) % Baso % (Auto) 0 (0-1) % Sodium 137 L (140-148) mmol/L Potassium 4.7 (3.6-5.2) mmol/L Chloride 103 (100-108) mmol/L Carbon Dioxide 23 (21-32) mmol/L Anion Gap 15.7 H (5.0-14.0) mmol/L BUN 36 H (7-18) mg/dL Creatinine 1.9 H (0.8-1.3) mg/dL Est Cr Clr Drug Dosing 21.90 mL/min Estimated GFR (MDRD) 34 L (>60) Glucose 101 (74-106) mg/dL Lactic Acid (0.4-2.0) mmol/L Calcium 8.9 (8.5-10.1) mg/dL Total Bilirubin (0.2-1.0) mg/dL Direct Bilirubin (0.0-0.2) mg/dL Indirect Bilirubin AST (15-37) U/L ALT (12-78) U/L Alkaline Phosphatase (46-116) U/L C-Reactive Protein (0.0-0.3) mg/dL Total Protein (6.4-8.2) g/dL Albumin (3.4-5.0) g/dL Globulin (2.3-3.5) g/dL Albumin/Globulin Ratio (1.2-2.2) Urine Color Yellow (YELLOW) Urine Appearance Cloudy A (CLEAR) Urine pH 6.0 (5.0-8.0) Ur Specific [place] 1.020 (1.008-1.030) Urine Protein 30 H (NEGATIVE) mg/dL Urine Glucose (UA) Negative (NEGATIVE) mg/dL Urine Ketones Negative (NEGATIVE) mg/dL Urine Occult Blood Small H (NEGATIVE) Urine Nitrite Positive H (NEGATIVE) Urine Bilirubin Negative (NEGATIVE) Urine Urobilinogen 0.2 (0.2-1.0) EU/dL Ur Leukocyte Esterase Moderate H (NEGATIVE) Urine RBC 0-5 (0-5) Urine WBC Packed H (0-5) Ur Epithelial Cells Rare Amorphous Sediment Few Urine Bacteria Many Urine Mucus Not seen 07/08/19 Range/Units 05:32 WBC (4.5-11.0) K/uL RBC (4.30-5.90) M/uL Hgb (12.0-15.0) g/dL Hct (40.0-54.0) % MCV (80-98) fL MCH (27-31) pg MCHC (32-36) % Plt Count (150-400) K/uL Neut % (Auto) (36-66) % Lymph % (Auto) (24-44) % Bacon % (Auto) (2-6) % Eos % (Auto) (2-4) % Baso % (Auto) (0-1) % Sodium 139 L (140-148) mmol/L Potassium 4.6 (3.6-5.2) mmol/L Chloride 105 (100-108) mmol/L Carbon Dioxide 23 (21-32) mmol/L Anion Gap 15.6 H (5.0-14.0) mmol/L BUN 31 H (7-18) mg/dL Creatinine 1.8 H (0.8-1.3) mg/dL Est Cr Clr Drug Dosing 20.97 mL/min Estimated GFR (MDRD) 36 L (>60) Glucose 117 H (74-106) mg/dL Lactic Acid (0.4-2.0) mmol/L Calcium 8.4 L (8.5-10.1) mg/dL Total Bilirubin 0.4 (0.2-1.0) mg/dL Direct Bilirubin (0.0-0.2) mg/dL Indirect Bilirubin AST 16 (15-37) U/L ALT 13 (12-78) U/L Alkaline Phosphatase 132 H (46-116) U/L C-Reactive Protein (0.0-0.3) mg/dL Total Protein 6.0 L (6.4-8.2) g/dL Albumin 2.5 L (3.4-5.0) g/dL Globulin 3.5 (2.3-3.5) g/dL Albumin/Globulin Ratio 0.7 L (1.2-2.2) Urine Color (YELLOW) Urine Appearance (CLEAR) Urine pH (5.0-8.0) Ur Specific [place] (1.008-1.030) Urine Protein (NEGATIVE) mg/dL Urine Glucose (UA) (NEGATIVE) mg/dL Urine Ketones (NEGATIVE) mg/dL Urine Occult Blood (NEGATIVE) Urine Nitrite (NEGATIVE) Urine Bilirubin (NEGATIVE) Urine Urobilinogen (0.2-1.0) EU/dL Ur Leukocyte Esterase (NEGATIVE) Urine RBC (0-5) Urine WBC (0-5) Ur Epithelial Cells Amorphous Sediment Urine Bacteria Urine Mucus Med Orders - Current: Current Medications Heparin Sodium (Porcine) (Heparin Sodium) 5,000 units SUBCUT Q8H [facility] Last Admin: 07/08/19 09:45 Dose: 5,000 units Sodium Chloride (Normal Saline) 1,000 mls @ 50 mls/hr IV ASDIRECTED [facility] Ondansetron HCl (Zofran) 4 mg IV Q4H PRN PRN Reason: Nausea/Vomiting Senna/Docusate Sodium (Senna Plus) 1 tab PO BID PRN PRN Reason: Constipation Simvastatin (Zocor) 20 mg PO BEDTIME [facility] Discontinued Medications Heparin Sodium (Porcine) (Heparin Sodium) 5,000 units SUBCUT Q8H [facility] Last Admin: 07/08/19 00:34 Dose: 5,000 units Lactated Ringer's (Ringers, Lactated) 1,000 mls @ 999 mls/hr IV ASDIRECTED [facility] Last Admin: 07/07/19 20:29 Dose: 999 mls/hr Ceftriaxone Sodium 2 gm/ (Sodium Chloride) 50 mls @ 100 mls/hr IV Q24H [facility] Last Admin: 07/07/19 21:55 Dose: 100 mls/hr Sodium Chloride (Normal Saline) 1,000 mls @ 150 mls/hr IV ASDIRECTED [facility] Last Admin: 07/08/19 08:25 Dose: 150 mls/hr Gentamicin Sulfate 290 mg/ (Sodium Chloride) 107.25 mls @ 107.25 mls/hr IV ONETIME ONE Stop: 07/08/19 01:14 Last Admin: 07/08/19 00:38 Dose: 107.25 mls/hr Lactobacillus Rhamnosus (Culturelle) 1 cap PO BID [facility] Last Admin: 07/08/19 09:45 Dose: 1 cap Pantoprazole Sodium (Protonix Iv) 40 mg IV Q24H [facility] Last Admin: 07/08/19 00:35 Dose: 40 mg Pantoprazole Sodium (Protonix Iv) 40 mg IV Q24H [facility] - Exam Quality Assessment: No: Supplemental Oxygen General: Alert, Cooperative, No Acute Distress. No: Oriented Lungs: Normal Respiratory Effort GI/Abdominal Exam: Soft, No Distention Extremities: No Pedal Edema Psy/Mental Status: Alert. No: Agitated - Problem List Review Problem List Initiated/Reviewed/Updated: Yes - My Orders Last 24 Hours: My Active Orders 07/08/19 09:00 Sodium Chloride 0.9% [Normal Saline] 1,000 ml IV ASDIRECTED 07/08/19 13:53 Up With Assistance [RC] ASDIRECTED 07/08/19 14:00 Acetaminophen [Tylenol] 650 mg PO TID 07/08/19 16:00 Carbidopa/Levodopa [Sinemet 25-100 mg] 1 tab PO QID 07/08/19 21:00 Lactobacillus Rhamnosus GG [Culturelle] 2 cap PO BID cefTRIAXone [Rocephin] 1 gm Sodium Chloride 0.9% [Normal Saline] 50 ml IV Q24H 07/09/19 05:00 BASIC METABOLIC PANEL,BMP [CHEM] Timed CBC W/O DIFF,HEMOGRAM [HEME] Timed (1) - Plan Plan:: ASSESSMENT AND PLAN - Complicated urinary tract infection - patient has chronic indwelling catheter which was changed several days ago. clinically improving. Tolerating antibiotics. Discussion with family regarding antibiotics and potential for recurrence of Clostridium difficile infection. -Continue ceftriaxone every 24 hours -2 capsules of probiotics twice daily -Follow-up urine culture -Continue gentle fluids Parkinson's disease with dementia - some difficulty with stiffness and poor mobility. No significant behavior issues at this time. His is interested in a trial of medication to help improve his functional status by decreasing muscle stiffness. -Trial of Sinemet -Melatonin at bedtime -physical therapy Stage III chronic kidney disease - creatinine near baseline at this time. Maintenance issues - - DVT prophylaxis - heparin - GI prophylaxis - not indicated - Nutrition - mechanical soft - Peacock catheter - chronic indwelling Peacock catheter Disposition - I anticipate discharge back to the custodial after the hospital stay Mike Parkinson M.D.
[2019-07-08] MEDS: Acetaminophen 325 MG Tab PO SCH ×2 (14:30→21:11)
[2019-07-08] MEDS: Carbidopa/Levodopa 25-100 MG Tab PO SCH ×2 (17:40→21:13)
[2019-07-08] MEDS ORDERED: Pantoprazole 40 MG Vial IV SCH (21:00)
[2019-07-08] MEDS: Lactobacillus Rhamnosus GG (Probiotic) Cap PO SCH (21:11)
[2019-07-08] MEDS: Simvastatin 20 MG Tab PO SCH (21:12)
[2019-07-08] MEDS: cefTRIAXone 1 GM in Sodium Chloride 0.9% 50 ML IV SCH (21:16)
[2019-07-09] MEDS: Heparin Sodium 5,000 Units/ML Vial SUBCUT SCH ×3 (01:17→16:27)
[2019-07-09] MEDS: Carbidopa/Levodopa 25-100 MG Tab PO SCH ×4 (05:13→22:14)
[2019-07-09] MEDS: Acetaminophen 325 MG Tab PO SCH ×3 (08:43→20:34)
[2019-07-09] MEDS: Lactobacillus Rhamnosus GG (Probiotic) Cap PO SCH ×2 (08:43→20:33)
--- NOTE | 2019-07-09 13:44 | PCM.PN ---
- General Info Date of Service: 07/09/19 Subjective Update: No acute events overnight. Seems to be moving better today after the Sinemet was started yesterday. No fevers overnight. Appetite has been good. Tolerating antibiotics. No diarrhea. Urine culture is growing mixed lennox as of today. Functional Status: Reports: Pain Controlled, Tolerating Diet, Ambulating - Review of Systems General: Denies: Fever - Patient Data Vitals - Most Recent: Last Vital Signs Temp 36.0 C 07/09/19 11:07 Pulse 77 07/09/19 11:07 Resp 16 07/09/19 11:07 BP 116/46 L 07/09/19 11:07 Pulse Ox 97 07/09/19 11:07 Weight - Most Recent: 52.254 kg I&O - Last 24 Hours: Intake & Output 07/08/19 07/09/19 07/09/19 22:59 06:59 14:59 Intake Total 1774 753 200 Output Total 550 550 Balance 1224 203 200 Lab Results Last 24 Hours: Laboratory Results - last 24 hr 07/09/19 07/09/19 Range/Units 04:45 04:45 WBC 19.4 H (4.5-11.0) K/uL RBC 2.61 L (4.30-5.90) M/uL Hgb 8.3 L (12.0-15.0) g/dL Hct 26.8 L (40.0-54.0) % MCV 103 H (80-98) fL MCH 32 H (27-31) pg MCHC 31 L (32-36) % Plt Count 170 (150-400) K/uL Sodium 139 L (140-148) mmol/L Potassium 3.8 (3.6-5.2) mmol/L Chloride 108 (100-108) mmol/L Carbon Dioxide 23 (21-32) mmol/L Anion Gap 11.8 (5.0-14.0) mmol/L BUN 30 H (7-18) mg/dL Creatinine 1.8 H (0.8-1.3) mg/dL Est Cr Clr Drug Dosing 20.97 mL/min Estimated GFR (MDRD) 36 L (>60) Glucose 103 (74-106) mg/dL Calcium 8.4 L (8.5-10.1) mg/dL Amilcar Results Last 24 Hours: Microbiology 07/07/19 21:35 Urine Culture - Preliminary Urine, Catheterized MIXED LENNOX DAY 1 07/07/19 20:38 Aerobic Blood Culture - Preliminary Blood - Arm, Left NO GROWTH AFTER 1 DAY Anaerobic Blood Culture - Preliminary NO GROWTH AFTER 1 DAY 07/07/19 20:30 Aerobic Blood Culture - Preliminary Blood - Arm, Left NO GROWTH AFTER 1 DAY Anaerobic Blood Culture - Preliminary NO GROWTH AFTER 1 DAY Med Orders - Current: Current Medications Acetaminophen (Tylenol) 650 mg PO TID [facility] Last Admin: 07/09/19 08:43 Dose: 650 mg Carbidopa/Levodopa (Sinemet 25-100 Mg) 1 tab PO QID [facility] Last Admin: 07/09/19 11:30 Dose: 1 tab Heparin Sodium (Porcine) (Heparin Sodium) 5,000 units SUBCUT Q8H [facility] Last Admin: 07/09/19 08:43 Dose: 5,000 units Ceftriaxone Sodium 1 gm/ (Sodium Chloride) 50 mls @ 100 mls/hr IV Q24H [facility] Last Admin: 07/08/19 21:16 Dose: 100 mls/hr Lactobacillus Rhamnosus (Culturelle) 2 cap PO BID [facility] Last Admin: 07/09/19 08:43 Dose: 2 cap Ondansetron HCl (Zofran) 4 mg IV Q4H PRN PRN Reason: Nausea/Vomiting Senna/Docusate Sodium (Senna Plus) 1 tab PO BID PRN PRN Reason: Constipation Simvastatin (Zocor) 20 mg PO BEDTIME [facility] Last Admin: 07/08/19 21:12 Dose: 20 mg Discontinued Medications Heparin Sodium (Porcine) (Heparin Sodium) 5,000 units SUBCUT Q8H [facility] Last Admin: 07/08/19 00:34 Dose: 5,000 units Lactated Ringer's (Ringers, Lactated) 1,000 mls @ 999 mls/hr IV ASDIRECTED [facility] Last Admin: 07/07/19 20:29 Dose: 999 mls/hr Ceftriaxone Sodium 2 gm/ (Sodium Chloride) 50 mls @ 100 mls/hr IV Q24H [facility] Last Admin: 07/07/19 21:55 Dose: 100 mls/hr Sodium Chloride (Normal Saline) 1,000 mls @ 150 mls/hr IV ASDIRECTED [facility] Last Admin: 07/08/19 08:25 Dose: 150 mls/hr Gentamicin Sulfate 290 mg/ (Sodium Chloride) 107.25 mls @ 107.25 mls/hr IV ONETIME ONE Stop: 07/08/19 01:14 Last Admin: 07/08/19 00:38 Dose: 107.25 mls/hr Sodium Chloride (Normal Saline) 1,000 mls @ 50 mls/hr IV ASDIRECTED [facility] Last Admin: 07/08/19 17:40 Dose: 50 mls/hr Lactobacillus Rhamnosus (Culturelle) 1 cap PO BID [facility] Last Admin: 07/08/19 09:45 Dose: 1 cap Pantoprazole Sodium (Protonix Iv) 40 mg IV Q24H [facility] Last Admin: 07/08/19 00:35 Dose: 40 mg Pantoprazole Sodium (Protonix Iv) 40 mg IV Q24H [facility] - Exam Quality Assessment: No: Supplemental Oxygen General: Alert, Cooperative, No Acute Distress. No: Oriented Lungs: Normal Respiratory Effort GI/Abdominal Exam: Soft, No Distention Extremities: No Pedal Edema Skin: Warm, Dry Psy/Mental Status: Alert, Normal Affect - Problem List Review Problem List Initiated/Reviewed/Updated: Yes - My Orders Last 24 Hours: My Active Orders 07/08/19 13:53 Up With Assistance [RC] ASDIRECTED 07/08/19 14:00 Acetaminophen [Tylenol] 650 mg PO TID 07/08/19 16:00 Carbidopa/Levodopa [Sinemet 25-100 mg] 1 tab PO QID 07/08/19 21:00 Lactobacillus Rhamnosus GG [Culturelle] 2 cap PO BID cefTRIAXone [Rocephin] 1 gm Sodium Chloride 0.9% [Normal Saline] 50 ml IV Q24H 07/09/19 13:43 Convert IV to Saline Lock [OM.PC] Routine 07/10/19 05:00 BASIC METABOLIC PANEL,BMP [CHEM] Timed CBC W/O DIFF,HEMOGRAM [HEME] Timed (1) - Plan Plan:: ASSESSMENT AND PLAN - Complicated urinary tract infection - patient has chronic indwelling catheter which was changed several days ago. Clinically much better today. White blood cell count trending down. No fevers. Urine culture with mixed lennox. -Continue ceftriaxone every 24 hours, transition to oral medications tomorrow -2 capsules of probiotics twice daily -Follow-up urine culture -Saline lock IV Parkinson's disease with dementia - some difficulty with stiffness and poor mobility. No significant behavior issues at this time. Seems to be doing better so far with the Sinemet. -Trial of Sinemet -Melatonin at bedtime -physical therapy Stage III chronic kidney disease - creatinine near baseline at this time. Maintenance issues - - DVT prophylaxis - heparin - GI prophylaxis - not indicated - Nutrition - mechanical soft - Peacock catheter - chronic indwelling Peacock catheter Disposition - I anticipate discharge back to the [facility] after the hospital stay, likely tomorrow stable overnight Mike Parkinson M.D.
[2019-07-09] MEDS: Simvastatin 20 MG Tab PO SCH (20:34)
[2019-07-09] MEDS: cefTRIAXone 1 GM in Sodium Chloride 0.9% 50 ML IV SCH (20:41)
[2019-07-10] MEDS: Heparin Sodium 5,000 Units/ML Vial SUBCUT SCH ×2 (03:07→09:35)
[2019-07-10] MEDS: Carbidopa/Levodopa 25-100 MG Tab PO SCH ×2 (05:47→09:35)
[2019-07-10 07:14] VITALS: BP 143/69; PULSE 88
--- NOTE | 2019-07-10 09:04 | PCM.DCSUM1 ---
Discharge Summary - Hospital Course Brief History: 89-year-old male with history of or concerns disease with dementia, BPH with obstruction and chronic catheter and recent Clostridium difficile infection who presented with fever, lethargy and confusion. He was admitted for management of recurrent complicated urinary tract infection. Diagnosis: Stroke: No - Discharge Data Discharge Date: 07/10/19 Discharge Disposition: DC/Tfer to SNF 03 Condition: Fair - Referral to Home Health Primary Care Physician: PCP None - Discharge Diagnosis/Problem(s) (1) Complicated urinary tract infection SNOMED Code(s): 76321700 ICD Code: N39.0 - URINARY TRACT INFECTION, SITE NOT SPECIFIED Status: Acute (2) BPH loc w urin obs/LUTS SNOMED Code(s): 786144795 ICD Code: N40.1 - BENIGN PROSTATIC HYPERPLASIA WITH LOWER URINARY TRACT SYMP Status: Chronic (3) Stage 3 chronic kidney disease SNOMED Code(s): 408254557 ICD Code: N18.3 - CHRONIC KIDNEY DISEASE, STAGE 3 (MODERATE) Status: Chronic (4) Dementia associated with Parkinson's disease SNOMED Code(s): 667234924 ICD Code: G20 - PARKINSON'S DISEASE; F02.80 - DEMENTIA IN OTH DISEASES CLASSD ELSWHR W/O BEHAVRL DISTURB Status: Chronic - Patient Summary/Data Consults: Consultations 07/07/19 23:21 OT Evaluation and Treatment [CONS] Routine Please Evaluate and Treat. OT Reason for Consult: Strengthening This query below is only for informational purposes and is not editable. PT Evaluation and Treatment [CONS] Routine Please Evaluate and Treat. PT Reason for Consult: Strengthening This query below is only for informational purposes and is not editable. Hospital Course: Fabian presented to the emergency room with fever, lethargy and confusion. Workup in the emergency room was suggestive of a recurrent complicated urinary tract infection. He received IV fluids, broad-spectrum antibiotics and was admitted to the hospital after cultures were obtained. Overnight following admission there were no acute issues and he did show some clinical improvement. Temperature curve didn't improve with the antibiotics. The morning after admission I discussed with his family antibiotic options. I did note that the patient recently had Clostridium difficile testing and did review that potentially any antibiotic can cause difficulty and that the ceftriaxone seems to be the safest choice for him. We did increase his probiotics from one capsule to 2 capsules twice daily. We continued the ceftriaxone until his culture came back with mixed lennox on the second day. At this point we elected to transition him to cefdinir since he was improving with these ceftriaxone. He has not had any more fevers during the hospital stay. His mental status has steadily improved during the hospital stay. Strength is been improving as well. I believe he is well enough for discharge back to the [place] [facility] at this time. He would benefit from additional rehabilitation prior to going home. He will be on antibiotics for 4 more days. He will remain on probiotics for 2 weeks. During the hospital stay I discussed with his the Parkinson's disease and treatment options. She was interested in a trial of a medication to help reduce his muscle rigidity with Parkinson's disease. We started him on low-dose Sinemet. He has tolerated this well and has shown us improvements in his function even after just a day and a half being on the medication. His gait has improved. His mood seems to have improved as well. We will continue this medication in the outpatient setting following hospital discharge. - Patient Instructions Diet: Regular Diet as Tolerated Activity: As Tolerated Showering/Bathing: May Shower Notify Provider of: Fever, Increased Pain Other/Special Instructions: 1. UTI - take cefdinir 300 mg twice daily for four more days. Take 2 probiotic capsules twice daily for 2 weeks. Routine catheter cares for chronic indwelling catheter. 2. Referral to PT and OT for strengthening. 3. Code status - DNR/DNI - Discharge Plan *PRESCRIPTION DRUG MONITORING PROGRAM REVIEWED*: Not Applicable *COPY OF PRESCRIPTION DRUG MONITORING REPORT IN PATIENT JON: Not Applicable Prescriptions/Med Rec: Carbidopa/Levodopa [Carbidopa-Levodopa 25-100] 1 tab PO QID #120 tablet Cefdinir 300 mg PO BID #8 capsule Lactobacillus Rhamnosus GG [Culturelle] 2 cap PO BID #60 cap traMADol HCl [Tramadol HCl] 50 mg PO Q8H PRN #30 tablet PRN Reason: Pain Home Medications: Home Meds Simvastatin 20 mg PO BEDTIME 02/02/16 [History] Ferrous Sulfate 325 mg PO DAILY 06/10/19 [History] Acetaminophen [Pain Reliever] 650 mg PO TID 07/07/19 [History] Carbidopa/Levodopa [Carbidopa-Levodopa 25-100] 1 tab PO QID #120 tablet [Rx] Cefdinir 300 mg PO BID #8 capsule 07/10/19 [Rx] Lactobacillus Rhamnosus GG [Culturelle] 2 cap PO BID #60 cap 07/10/19 [Rx] traMADol HCl [Tramadol HCl] 50 mg PO Q8H PRN #30 tablet 07/10/19 [Rx] Oxygen Therapy Mode: Room Air Patient Handouts: Urinary Tract Infection, Adult, [id number] Referrals: Jose Camilo MD [Physician] - (1 week - f/u hospital stay for UTI, Parkinsons w/ dementia ) - Discharge Summary/Plan Comment DC Time >30 min.: Yes (40 - [facility] discharge ) - Patient Data Vitals - Most Recent: Last Vital Signs Temp 35.5 C 07/10/19 07:13 Pulse 88 07/10/19 07:13 Resp 16 07/10/19 07:13 BP 143/69 H 07/10/19 07:13 Pulse Ox 97 07/10/19 07:13 Weight - Most Recent: 52.254 kg I&O - Last 24 hours: Intake & Output 07/09/19 07/10/19 07/10/19 22:59 06:59 14:59 Intake Total 570 Output Total 600 1300 Balance -30 -1300 Lab Results - Last 24 hrs: Laboratory Results - last 24 hr 07/10/19 07/10/19 Range/Units 04:00 04:00 WBC 17.2 H (4.5-11.0) K/uL RBC 2.90 L (4.30-5.90) M/uL Hgb 9.2 L (12.0-15.0) g/dL Hct 29.3 L (40.0-54.0) % MCV 101 H (80-98) fL MCH 32 H (27-31) pg MCHC 31 L (32-36) % Plt Count 209 (150-400) K/uL Sodium 141 (140-148) mmol/L Potassium 3.8 (3.6-5.2) mmol/L Chloride 108 (100-108) mmol/L Carbon Dioxide 23 (21-32) mmol/L Anion Gap 10.5 (5.0-14.0) mmol/L BUN 33 H (7-18) mg/dL Creatinine 1.9 H (0.8-1.3) mg/dL Est Cr Clr Drug Dosing 19.86 mL/min Estimated GFR (MDRD) 34 L (>60) Glucose 98 (74-106) mg/dL Calcium 8.8 (8.5-10.1) mg/dL JACKLYN Results - Last 24 hrs: Microbiology 07/07/19 21:35 Urine Culture - Final Urine, Catheterized MIXED LENNOX DAY 2 07/07/19 20:30 Aerobic Blood Culture - Preliminary Blood - Arm, Left NO GROWTH AFTER 2 DAYS Anaerobic Blood Culture - Preliminary NO GROWTH AFTER 2 DAYS 07/07/19 20:38 Aerobic Blood Culture - Preliminary Blood - Arm, Left NO GROWTH AFTER 2 DAYS Anaerobic Blood Culture - Preliminary NO GROWTH AFTER 2 DAYS Med Orders - Current: Current Medications Acetaminophen (Tylenol) 650 mg PO TID [facility] Last Admin: 07/09/19 20:34 Dose: 650 mg Carbidopa/Levodopa (Sinemet 25-100 Mg) 1 tab PO QID [facility] Last Admin: 07/10/19 05:47 Dose: 1 tab Heparin Sodium (Porcine) (Heparin Sodium) 5,000 units SUBCUT Q8H [facility] Last Admin: 07/10/19 03:07 Dose: 5,000 units Ceftriaxone Sodium 1 gm/ (Sodium Chloride) 50 mls @ 100 mls/hr IV Q24H [facility] Last Admin: 07/09/19 20:41 Dose: 100 mls/hr Lactobacillus Rhamnosus (Culturelle) 2 cap PO BID [facility] Last Admin: 07/09/19 20:33 Dose: 2 cap Ondansetron HCl (Zofran) 4 mg IV Q4H PRN PRN Reason: Nausea/Vomiting Senna/Docusate Sodium (Senna Plus) 1 tab PO BID PRN PRN Reason: Constipation Simvastatin (Zocor) 20 mg PO BEDTIME [facility] Last Admin: 07/09/19 20:34 Dose: 20 mg Discontinued Medications Heparin Sodium (Porcine) (Heparin Sodium) 5,000 units SUBCUT Q8H [facility] Last Admin: 07/08/19 00:34 Dose: 5,000 units Lactated Ringer's (Ringers, Lactated) 1,000 mls @ 999 mls/hr IV ASDIRECTED [facility] Last Admin: 07/07/19 20:29 Dose: 999 mls/hr Ceftriaxone Sodium 2 gm/ (Sodium Chloride) 50 mls @ 100 mls/hr IV Q24H [facility] Last Admin: 07/07/19 21:55 Dose: 100 mls/hr Sodium Chloride (Normal Saline) 1,000 mls @ 150 mls/hr IV ASDIRECTED [facility] Last Admin: 07/08/19 08:25 Dose: 150 mls/hr Gentamicin Sulfate 290 mg/ (Sodium Chloride) 107.25 mls @ 107.25 mls/hr IV ONETIME ONE Stop: 07/08/19 01:14 Last Admin: 07/08/19 00:38 Dose: 107.25 mls/hr Sodium Chloride (Normal Saline) 1,000 mls @ 50 mls/hr IV ASDIRECTED [facility] Last Admin: 07/08/19 17:40 Dose: 50 mls/hr Lactobacillus Rhamnosus (Culturelle) 1 cap PO BID [facility] Last Admin: 07/08/19 09:45 Dose: 1 cap Pantoprazole Sodium (Protonix Iv) 40 mg IV Q24H [facility] Last Admin: 07/08/19 00:35 Dose: 40 mg Pantoprazole Sodium (Protonix Iv) 40 mg IV Q24H [facility] - Exam Quality Assessment: Denies: Supplemental Oxygen General: Reports: Alert, Cooperative, No Acute Distress. Denies: Oriented Lungs: Reports: Normal Respiratory Effort GI/Abdominal Exam: Soft, No Distention Extremities: No Pedal Edema Psy/Mental Status: Reports: Alert, Normal Affect
[2019-07-10] MEDS: Lactobacillus Rhamnosus GG (Probiotic) Cap PO SCH (09:34)
[2019-07-10] MEDS: Acetaminophen 325 MG Tab PO SCH (09:35)
== END 2019-07-10 10:00 | DRG 699 ==
LOC: JP.ED 19:36 → JP.MS 23:21
PROVIDERS: ADMIT Family Medicine; ATTEND Internal Medicine
DX: T83.511A Infection and inflammatory reaction due to indwelling urethral catheter, initial encounter (principal); N13.8 Other obstructive and reflux uropathy; R50.9 Fever, unspecified; N39.0 Urinary tract infection, site not specified; G30.9 Alzheimer's disease, unspecified; N40.1 Benign prostatic hyperplasia with lower urinary tract symptoms; I25.10 Atherosclerotic heart disease of native coronary artery without angina pectoris; G20 Parkinson's disease; F02.80 Dementia in other diseases classified elsewhere, unspecified severity, without behavioral disturbance, psychotic disturbance, mood disturbance, and anxiety; Z95.1 Presence of aortocoronary bypass graft; N18.3 Chronic kidney disease, stage 3 (moderate); I12.9 Hypertensive chronic kidney disease with stage 1 through stage 4 chronic kidney disease, or unspecified chronic kidney disease; G89.29 Other chronic pain; M54.5 Low back pain; Z66 Do not resuscitate; H54.7 Unspecified visual loss; E78.00 Pure hypercholesterolemia, unspecified; K59.09 Other constipation; E87.5 Hyperkalemia; Z79.899 Other long term (current) drug therapy; Z90.89 Acquired absence of other organs; Z98.49 Cataract extraction status, unspecified eye; Z86.010 Personal history of colon polyps
CPT/HCPCS: 36415; 71045; 80076; 81001; 83605; 85025; 86140; 87040 ×2; 87086; 96361; 96365; 99284; 99285; J0696; J7050; J7120; 80048; 80053; 85027; 97161-GP; 97165-GO; 97530-GP; A9270-GY; C9113; J1580; J1644; J7030

== ENCOUNTER 2019-08-09 21:06 | Inpatient (IN) | payer MEDICARE, BC ==
--- NOTE | 2019-08-09 21:15 | EDM.PDOC ---
ED HPI GENERAL MEDICAL PROBLEM - General Stated Complaint: FEVER Time Seen by Provider: 08/09/19 21:06 Source of Information: Reports: EMS History Limitations: Reports: Altered Mental Status - History of Present Illness INITIAL COMMENTS - FREE TEXT/NARRATIVE: Alcides is an 89 year old male, history of dementia and Parkinson's, presents to the ED today via EMS [facility] No other concerns mentioned in report. Patient is unable to provide a history. reports that patient has had ongoing issues with UTI's which then are treated with antibiotics, then patient develops C diff. Patient currently has soft stools, no watery diarrhea. No current antibiotics. Onset: Today - Related Data Allergies Allergy/AdvReac Type Severity Reaction Status Date / Time No Known Allergies Allergy Verified 07/07/19 20:20 Home Meds: Home Meds Simvastatin 20 mg PO BEDTIME 02/02/16 [History] Ferrous Sulfate 325 mg PO DAILY 06/10/19 [History] Acetaminophen [Pain Reliever] 650 mg PO TID 07/07/19 [History] Carbidopa/Levodopa [Carbidopa-Levodopa 25-100] 1 tab PO QID #120 tablet [Rx] Cefdinir 300 mg PO BID #8 capsule 07/10/19 [Rx] Lactobacillus Rhamnosus GG [Culturelle] 2 cap PO BID #60 cap 07/10/19 [Rx] traMADol HCl [Tramadol HCl] 50 mg PO Q8H PRN #30 tablet 07/10/19 [Rx] Past Medical History HEENT History: Reports: Cataract, Impaired Vision, Other (See Below) Other HEENT History: "bulge on the retina" Cardiovascular History: Reports: High Cholesterol, Syncope Gastrointestinal History: Reports: Chronic Constipation, Colon Polyp Genitourinary History: Reports: Renal Disease Other Genitourinary History: "stage 4 kidney disease" Musculoskeletal History: Reports: Back Pain, Chronic Neurological History: Reports: Vertigo Psychiatric History: Reports: Dementia - Infectious Disease History Infectious Disease History: Reports: Chicken Pox - Past Surgical History Head Surgeries/Procedures: Reports: None HEENT Surgical History: Reports: Cataract Surgery, Tonsillectomy Cardiovascular Surgical History: Reports: None GI Surgical History: Reports: Colonoscopy Male Surgical History: Reports: Ureteral Stent Neurological Surgical History: Reports: None Musculoskeletal Surgical History: Reports: Hip Replacement Dermatological Surgical History: Reports: None Social & Family History - Family History Family Medical History: Noncontributory Cardiac: Reports: Bypass, CAD Musculoskeletal: Reports: Other (See Below) Other Musculoskeletal Family History: "hump back" Neurological: Reports: Alzheimers Disease, Parkinson's Oncologic: Reports: Colon, Pancreatic - Caffeine Use Caffeine Use: Reports: Coffee, Tea ED ROS GENERAL - Review of Systems Review Of Systems: Unable To Obtain ED EXAM, GENERAL - Physical Exam Exam: See Below Exam Limited By: Altered Mental Status General Appearance: Alert, No Apparent Distress Eye Exam: Bilateral Eye: EOMI Ears: Normal External Exam Throat/Mouth: Normal Inspection Head: Atraumatic Neck: Normal Inspection Respiratory/Chest: No Respiratory Distress, Lungs Clear Cardiovascular: Systolic Murmur GI/Abdominal: Normal Bowel Sounds, Soft, Non-Tender, Other (suprapubic catheter intact, site looks clean and dry) Back Exam: Normal Inspection Extremities: Normal Inspection Neurological: Confused Skin Exam: Warm, Dry, Intact Lymphatic: No Adenopathy Course - Vital Signs Last Recorded V/S: Last Vital Signs Temp 37.1 C 08/09/19 21:16 Pulse 92 08/09/19 21:16 Resp 14 08/09/19 21:16 BP 111/56 L 08/09/19 21:16 Pulse Ox 99 08/09/19 21:16 Alcides is an 89 year old male, hx of Parkinson's, Dementia, suprapubic catheter with frequent UTI's, and Clostridium Difficile presents from [facility] with fever of 101 this evening. Please refer to HPI and focused exam. Patient arrives here afebrile and hemodynamically stable. Work up reveals UTI with significant leukocytosis as noted below. WBC of 33 with left shift, Gap of 17.5, Creatinine of 2.3 with GFR of 27, slightly worse than baseline, HGB stable at 10.6. UA positive for nitrite, leukocyte esterase and 10-20 WBC's, culture pending. Blood cultures pending. Lactic Acid normal at 1.4. Patient started on IV Rocephin will be admitted pending cultures. updated on plan of care and agreeable. Patient admitted in stable condition per VITALIY Venegas, ERWIN, hospitalist. - Orders/Labs/Meds Orders: Active Orders 24 hr Category Date Time Status Peripheral IV Care [RC] . DIRECTED Care 08/09/19 21:32 Active Chest 1V Frontal [CR] Stat Exams 08/09/19 21:08 Ordered CULTURE BLOOD [BC] Urgent Lab 08/09/19 21:35 Received CULTURE BLOOD [BC] Urgent Lab 08/09/19 21:45 Received CULTURE URINE [RM] Stat Lab 08/09/19 21:56 Ordered Iopamidol [Isovue-300 (61%)] Med 08/09/19 22:00 Ordered 135 ml IV . DIRECTED Sodium Chloride 0.9% [Normal Saline] 1,000 ml Med 08/09/19 21:32 Active IV .BOLUS Sodium Chloride 0.9% [Normal Saline] 80 ml Med 08/09/19 21:53 Ordered IV ONETIME Sodium Chloride 0.9% [Saline Flush] Med 08/09/19 21:31 Active 10 ml FLUSH ASDIRECTED PRN Sodium Chloride 0.9% [Saline Flush] Med 08/09/19 21:53 Once 10 ml FLUSH ONETIME ONE cefTRIAXone [Rocephin] 1 gm Med 08/09/19 21:59 Ordered Sodium Chloride 0.9% [Normal Saline] 50 ml IV ONETIME Blood Culture x2 Reflex Set [OM.PC] Urgent Oth 08/09/19 21:32 Ordered Peripheral IV Insertion Adult [OM.PC] Routine Oth 08/09/19 21:31 Ordered Medication Orders Sodium Chloride (Normal Saline) 1,000 mls @ 999 mls/hr IV .BOLUS ONE Stop: 08/09/19 22:32 Last Admin: 08/09/19 21:52 Dose: 999 mls/hr Sodium Chloride (Normal Saline) 80 mls @ 3.5 mls/sec IV ONETIME ONE Stop: 08/09/19 21:54 Iopamidol (Isovue-300 (61%)) 135 ml IV . DIRECTED MARSHA Sodium Chloride (Saline Flush) 10 ml FLUSH ASDIRECTED PRN PRN Reason: Keep Vein Open Last Admin: 08/09/19 21:52 Dose: 10 ml Sodium Chloride (Saline Flush) 10 ml FLUSH ONETIME ONE Stop: 08/09/19 21:54 Labs: Laboratory Tests 08/09/19 08/09/19 08/09/19 Range/Units 21:23 21:23 21:32 WBC 33.3 H* (4.5-11.0) K/uL RBC 3.31 L (4.30-5.90) M/uL Hgb 10.6 L (12.0-15.0) g/dL Hct 33.5 L (40.0-54.0) % MCV 101 H (80-98) fL MCH 32 H (27-31) pg MCHC 32 (32-36) % Plt Count 356 (150-400) K/uL Neut % (Auto) 91 H (36-66) % Lymph % (Auto) 4 L (24-44) % Dare % (Auto) 5 (2-6) % Eos % (Auto) 0 L (2-4) % Baso % (Auto) 0 (0-1) % Sodium 137 L (140-148) mmol/L Potassium 4.5 (3.6-5.2) mmol/L Chloride 103 (100-108) mmol/L Carbon Dioxide 21 (21-32) mmol/L Anion Gap 17.5 H (5.0-14.0) mmol/L BUN 38 H (7-18) mg/dL Creatinine 2.3 H (0.8-1.3) mg/dL Est Cr Clr Drug Dosing 16.41 mL/min Estimated GFR (MDRD) 27 L (>60) Glucose 117 H (74-106) mg/dL Lactic Acid 1.4 (0.4-2.0) mmol/L Calcium 9.0 (8.5-10.1) mg/dL Urine Color (YELLOW) Urine Appearance (CLEAR) Urine pH (5.0-8.0) Ur Specific [place] (1.008-1.030) Urine Protein (NEGATIVE) mg/dL Urine Glucose (UA) (NEGATIVE) mg/dL Urine Ketones (NEGATIVE) mg/dL Urine Occult Blood (NEGATIVE) Urine Nitrite (NEGATIVE) Urine Bilirubin (NEGATIVE) Urine Urobilinogen (0.2-1.0) EU/dL Ur Leukocyte Esterase (NEGATIVE) Urine RBC (0-5) Urine WBC (0-5) Ur Epithelial Cells Amorphous Sediment Urine Bacteria Urine Mucus 08/09/19 Range/Units 21:54 WBC (4.5-11.0) K/uL RBC (4.30-5.90) M/uL Hgb (12.0-15.0) g/dL Hct (40.0-54.0) % MCV (80-98) fL MCH (27-31) pg MCHC (32-36) % Plt Count (150-400) K/uL Neut % (Auto) (36-66) % Lymph % (Auto) (24-44) % Dare % (Auto) (2-6) % Eos % (Auto) (2-4) % Baso % (Auto) (0-1) % Sodium (140-148) mmol/L Potassium (3.6-5.2) mmol/L Chloride (100-108) mmol/L Carbon Dioxide (21-32) mmol/L Anion Gap (5.0-14.0) mmol/L BUN (7-18) mg/dL Creatinine (0.8-1.3) mg/dL Est Cr Clr Drug Dosing mL/min Estimated GFR (MDRD) (>60) Glucose (74-106) mg/dL Lactic Acid (0.4-2.0) mmol/L Calcium (8.5-10.1) mg/dL Urine Color Yellow (YELLOW) Urine Appearance Slightly cloudy A (CLEAR) Urine pH 5.5 (5.0-8.0) Ur Specific [place] 1.020 (1.008-1.030) Urine Protein 100 H (NEGATIVE) mg/dL Urine Glucose (UA) Negative (NEGATIVE) mg/dL Urine Ketones Trace H (NEGATIVE) mg/dL Urine Occult Blood Trace-intact H (NEGATIVE) Urine Nitrite Positive H (NEGATIVE) Urine Bilirubin Negative (NEGATIVE) Urine Urobilinogen 0.2 (0.2-1.0) EU/dL Ur Leukocyte Esterase Small H (NEGATIVE) Urine RBC 5-10 H (0-5) Urine WBC 10-20 H (0-5) Ur Epithelial Cells Few Amorphous Sediment Not seen Urine Bacteria Many Urine Mucus Few Meds: Medications Generic Name Dose Route Start Last Admin Trade Name Freq PRN Reason Stop Dose Admin Sodium Chloride 1,000 mls @ 999 mls/hr 08/09/19 21:32 08/09/19 21:52 Normal Saline IV 08/09/19 22:32 999 mls/hr .BOLUS ONE Administration Sodium Chloride 80 mls @ 3.5 mls/sec 08/09/19 21:53 Normal Saline IV 08/09/19 21:54 ONETIME ONE Iopamidol 135 ml 08/09/19 22:00 Isovue-300 (61%) IV . DIRECTED MARSHA Sodium Chloride 10 ml 08/09/19 21:31 08/09/19 21:52 Saline Flush FLUSH 10 ml ASDIRECTED PRN Administration Keep Vein Open Sodium Chloride 10 ml 08/09/19 21:53 Saline Flush FLUSH 08/09/19 21:54 ONETIME ONE Departure - Departure Time of Disposition: 23:00 Disposition: Admitted As Inpatient 67 Condition: Fair Clinical Impression: UTI, Urinary tract infectious disease, CKD (chronic kidney disease), stage IV Leukocytosis Qualifiers: Leukocytosis type: unspecified Qualified Code(s): D72.829 - Elevated white blood cell count, unspecified Dementia without behavioral disturbance Qualifiers: Dementia type: unspecified type Qualified Code(s): F03.90 - Unspecified dementia without behavioral disturbance - Discharge Information Referrals: Jose Luis Mann MD [Primary Care Provider] - - My Orders Last 24 Hours: My Active Orders 08/09/19 21:08 Chest 1V Frontal [CR] Stat 08/09/19 21:31 Sodium Chloride 0.9% [Saline Flush] 10 ml FLUSH ASDIRECTED PRN Peripheral IV Insertion Adult [OM.PC] Routine 08/09/19 21:32 Peripheral IV Care [RC] . DIRECTED Sodium Chloride 0.9% [Normal Saline] 1,000 ml IV .BOLUS Blood Culture x2 Reflex Set [OM.PC] Urgent 08/09/19 21:35 CULTURE BLOOD [BC] Urgent 08/09/19 21:45 CULTURE BLOOD [BC] Urgent 08/09/19 21:53 Sodium Chloride 0.9% [Normal Saline] 80 ml IV ONETIME Sodium Chloride 0.9% [Saline Flush] 10 ml FLUSH ONETIME ONE 08/09/19 21:56 CULTURE URINE [RM] Stat 08/09/19 21:59 cefTRIAXone [Rocephin] 1 gm Sodium Chloride 0.9% [Normal Saline] 50 ml IV ONETIME 08/09/19 22:00 Iopamidol [Isovue-300 (61%)] 135 ml IV . DIRECTED - Assessment/Plan Last 24 Hours: My Active Orders 08/09/19 21:08 Chest 1V Frontal [CR] Stat 08/09/19 21:31 Sodium Chloride 0.9% [Saline Flush] 10 ml FLUSH ASDIRECTED PRN Peripheral IV Insertion Adult [OM.PC] Routine 08/09/19 21:32 Peripheral IV Care [RC] . DIRECTED Sodium Chloride 0.9% [Normal Saline] 1,000 ml IV .BOLUS Blood Culture x2 Reflex Set [OM.PC] Urgent 08/09/19 21:35 CULTURE BLOOD [BC] Urgent 08/09/19 21:45 CULTURE BLOOD [BC] Urgent 08/09/19 21:53 Sodium Chloride 0.9% [Normal Saline] 80 ml IV ONETIME Sodium Chloride 0.9% [Saline Flush] 10 ml FLUSH ONETIME ONE 08/09/19 21:56 CULTURE URINE [RM] Stat 08/09/19 21:59 cefTRIAXone [Rocephin] 1 gm Sodium Chloride 0.9% [Normal Saline] 50 ml IV ONETIME 08/09/19 22:00 Iopamidol [Isovue-300 (61%)] 135 ml IV . DIRECTED
[2019-08-09] MEDS ORDERED: Sodium Chloride 0.9% 10 ML Syringe FLUSH PRN (21:31)
[2019-08-09] MEDS ORDERED: Sodium Chloride 0.9% 1,000 ML IV ONE (21:32)
[2019-08-09] MEDS ORDERED: Sodium Chloride 0.9% 80 ML IV ONE (21:53)
[2019-08-09] MEDS ORDERED: Sodium Chloride 0.9% 10 ML Syringe FLUSH ONE (21:53)
[2019-08-09] MEDS ORDERED: cefTRIAXone 1 GM in Sodium Chloride 0.9% 50 ML IV ONE (21:59)
[2019-08-09] MEDS ORDERED: Iopamidol 612 MG/ML 150 ML Bottle IV SCH (22:00)
--- NOTE | 2019-08-09 22:38 | CRLCR ---
INDICATION: Cough TECHNIQUE: Chest 1 views COMPARISON: Chest x-ray 07/07/2019 FINDINGS: Cardiovascular and mediastinum: Heart size and vasculature are normal in caliber and appearance. Lungs and pleural spaces: Eventration within the hemidiaphragms. Slight reticular nodular process within the left lung. Bones and soft tissues: No significant findings. IMPRESSION: Slight reticular nodular process within the left lung although this is stable compared to the chest x-ray of 1 month prior. Dictated by John Woods MD @ Aug 09 2019 10:35PM Signed by Dr. John Woods @ Aug 09 2019 10:36PM
--- NOTE | 2019-08-09 22:59 | PCM.HP.2 ---
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 He is unable to give history of present illness.) History Limitations: Reports: Altered Mental Status - History of Present Illness Initial Comments - Free Text/Narative: - History of Present Illness INITIAL COMMENTS - FREE TEXT/NARRATIVE: Alcides is an 89 year old male, history of dementia and Parkinson's, presents to the ED today via EMS with reported fever of 101 at [facility]. No other concerns mentioned in report. Patient is unable to provide a history. reports that patient has had ongoing issues with UTI's which then are treated with antibiotics, then patient develops C diff. Patient currently has soft stools, no watery diarrhea. No current antibiotics. Onset: Today ER work up includes CBC WBC 33,300, CMP, Urine cath- +nitrates, +wbc,, + leukocytes, blood cultures x2 pending chest x-ray no acute changes or infiltrates are seen, radiologist report pending Onset of Symptoms: Reports: Today Duration of Symptoms: Reports: Hour(s): ( reports today "he wasn't himself" , more sleeping, didn't want to eat. Temp at 2pm today was 99.6, this evening 102.7) Location: Reports: Generalized Quality: Reports: Same as Previous Episode Improves with: Reports: None Worsens with: Reports: None Context: Reports: Other (frail elderly Male with multi co-existing diagnosis. ) Associated Symptoms: Reports: Fever/Chills, Loss of Appetite, Weakness - Related Data Allergies/Adverse Reactions: Allergies Allergy/AdvReac Type Severity Reaction Status Date / Time No Known Allergies Allergy Verified 08/09/19 22:16 Home Medications: Home Meds Simvastatin 20 mg PO BEDTIME 02/02/16 [History] Ferrous Sulfate 325 mg PO DAILY 06/10/19 [History] Acetaminophen [Pain Reliever] 650 mg PO TID 07/07/19 [History] Carbidopa/Levodopa [Carbidopa-Levodopa 25-100] 1 tab PO QID #120 tablet [Rx] Lactobacillus Rhamnosus GG [Culturelle] 2 cap PO BID #60 cap 07/10/19 [Rx] Past Medical History HEENT History: Reports: Cataract, Impaired Vision, Other (See Below) Other HEENT History: "bulge on the retina" Cardiovascular History: Reports: High Cholesterol, Syncope Gastrointestinal History: Reports: Chronic Constipation, Colon Polyp Genitourinary History: Reports: Renal Disease Other Genitourinary History: "stage 4 kidney disease" Musculoskeletal History: Reports: Back Pain, Chronic Neurological History: Reports: Vertigo, Other (See Below) ( reports his Mother had Parkinson's disease. Mr. Cheatham has been having symptoms for atleast 2- 3 years, but wasn't diagnosed until 03/01) Psychiatric History: Reports: Dementia - Infectious Disease History Infectious Disease History: Reports: Chicken Pox - Past Surgical History Head Surgeries/Procedures: Reports: None HEENT Surgical History: Reports: Cataract Surgery, Tonsillectomy Cardiovascular Surgical History: Reports: None GI Surgical History: Reports: Colonoscopy Male Surgical History: Reports: Ureteral Stent Neurological Surgical History: Reports: None Musculoskeletal Surgical History: Reports: Hip Replacement Dermatological Surgical History: Reports: None Social & Family History - Family History Family Medical History: Noncontributory Cardiac: Reports: Bypass, CAD Musculoskeletal: Reports: Other (See Below) Other Musculoskeletal Family History: "hump back" Neurological: Reports: Alzheimers Disease, Parkinson's Oncologic: Reports: Colon, Pancreatic - Tobacco Use Smoking Status *Q: Never Smoker - Caffeine Use Caffeine Use: Reports: Coffee, Tea - Living Situation & Occupation Living situation: Reports: ( reports was at [facility] from 07-10-2019 to 07-30-2019, transferred to Memory Care at [facility].) Occupation: Disabled H&P Review of Systems - Review of Systems: Review Of Systems: ROS reveals no pertinent complaints other than HPI. (reports of symptoms per Mrs. Cheatham.) General: Reports: Fever (started at 2 pm today. now at 101.7), Decreased Appetite (he didn't want to eat today), Weight Loss (has lost 12 pounds since June 2019.) HEENT: Reports: Glasses (wears glasses for reading) Gastrointestinal: Reports: Diarrhea (reports recent c-diff, still with intermittent diarrhea. ), Stool Incontinence Genitourinary: Reports: Other (supra pubic cath for the past 3 years. March 2016) Musculoskeletal: Reports: Back Pain (chronic back pain), Other (progressive weakness of muscles. 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 Speech not understandable, now seeing things on the floor or in the room. ) Neurological: Reports: Pre-Existing Deficit (difficulty speaking, walking, movement in general. ) Hematologic/Lymphatic: Reports: No Symptoms Immunologic: Reports: No Symptoms Exam - Exam Exam: See Below - Vital Signs Vital Signs: Last Vital Signs Temp 37.1 C 08/09/19 21:16 Pulse 92 08/09/19 21:16 Resp 14 08/09/19 21:16 BP 111/56 L 08/09/19 21:16 Pulse Ox 99 08/09/19 21:16 Weight: 52.25 kg - Exam Quality Assessment: DVT Prophylaxis, Other (supra-pubic cath. ) General: Lethargic (awakens to voice or commands. speech not understandable.) HEENT: Pupils Equal, Other (natural teeth present) Neck: Supple, Trachea Midline Lungs: Clear to Auscultation, Normal Respiratory Effort, Decreased Breath Sounds Cardiovascular: Systolic Murmur GI/Abdominal Exam: Normal Bowel Sounds, Soft, Non-Tender, Other (cath noted, dressing dry clean and intact. urine clear yellow noted in bag.) (Male) Exam: Deferred Rectal (Males) Exam: Deferred Back Exam: Decreased Range of Motion Extremities: Non-Tender, No Pedal Edema, Normal Capillary Refill, Limited Range of Motion Skin: Warm, Dry, Intact Neuro Extensive - Mental Status: Inattentive Neuro Extensive - Motor, Sensory, Reflexes: Motor/Sensory Deficits Psychiatric: Other (sleeping) - Patient Data Lab Results Last 24 hrs: Laboratory Results - last 24 hr 08/09/19 08/09/19 08/09/19 Range/Units 21:23 21:23 21:32 WBC 33.3 H* (4.5-11.0) K/uL RBC 3.31 L (4.30-5.90) M/uL Hgb 10.6 L (12.0-15.0) g/dL Hct 33.5 L (40.0-54.0) % MCV 101 H (80-98) fL MCH 32 H (27-31) pg MCHC 32 (32-36) % Plt Count 356 (150-400) K/uL Neut % (Auto) 91 H (36-66) % Lymph % (Auto) 4 L (24-44) % [place] % (Auto) 5 (2-6) % Eos % (Auto) 0 L (2-4) % Baso % (Auto) 0 (0-1) % Sodium 137 L (140-148) mmol/L Potassium 4.5 (3.6-5.2) mmol/L Chloride 103 (100-108) mmol/L Carbon Dioxide 21 (21-32) mmol/L Anion Gap 17.5 H (5.0-14.0) mmol/L BUN 38 H (7-18) mg/dL Creatinine 2.3 H (0.8-1.3) mg/dL Est Cr Clr Drug Dosing 16.41 mL/min Estimated GFR (MDRD) 27 L (>60) Glucose 117 H (74-106) mg/dL Lactic Acid 1.4 (0.4-2.0) mmol/L Calcium 9.0 (8.5-10.1) mg/dL Urine Color (YELLOW) Urine Appearance (CLEAR) Urine pH (5.0-8.0) Ur Specific [place] (1.008-1.030) Urine Protein (NEGATIVE) mg/dL Urine Glucose (UA) (NEGATIVE) mg/dL Urine Ketones (NEGATIVE) mg/dL Urine Occult Blood (NEGATIVE) Urine Nitrite (NEGATIVE) Urine Bilirubin (NEGATIVE) Urine Urobilinogen (0.2-1.0) EU/dL Ur Leukocyte Esterase (NEGATIVE) Urine RBC (0-5) Urine WBC (0-5) Ur Epithelial Cells Amorphous Sediment Urine Bacteria Urine Mucus 08/09/19 Range/Units 21:54 WBC (4.5-11.0) K/uL RBC (4.30-5.90) M/uL Hgb (12.0-15.0) g/dL Hct (40.0-54.0) % MCV (80-98) fL MCH (27-31) pg MCHC (32-36) % Plt Count (150-400) K/uL Neut % (Auto) (36-66) % Lymph % (Auto) (24-44) % [place] % (Auto) (2-6) % Eos % (Auto) (2-4) % Baso % (Auto) (0-1) % Sodium (140-148) mmol/L Potassium (3.6-5.2) mmol/L Chloride (100-108) mmol/L Carbon Dioxide (21-32) mmol/L Anion Gap (5.0-14.0) mmol/L BUN (7-18) mg/dL Creatinine (0.8-1.3) mg/dL Est Cr Clr Drug Dosing mL/min Estimated GFR (MDRD) (>60) Glucose (74-106) mg/dL Lactic Acid (0.4-2.0) mmol/L Calcium (8.5-10.1) mg/dL Urine Color Yellow (YELLOW) Urine Appearance Slightly cloudy A (CLEAR) Urine pH 5.5 (5.0-8.0) Ur Specific [place] 1.020 (1.008-1.030) Urine Protein 100 H (NEGATIVE) mg/dL Urine Glucose (UA) Negative (NEGATIVE) mg/dL Urine Ketones Trace H (NEGATIVE) mg/dL Urine Occult Blood Trace-intact H (NEGATIVE) Urine Nitrite Positive H (NEGATIVE) Urine Bilirubin Negative (NEGATIVE) Urine Urobilinogen 0.2 (0.2-1.0) EU/dL Ur Leukocyte Esterase Small H (NEGATIVE) Urine RBC 5-10 H (0-5) Urine WBC 10-20 H (0-5) Ur Epithelial Cells Few Amorphous Sediment Not seen Urine Bacteria Many Urine Mucus Few Result Diagrams: 08/09/19 21:23 08/09/19 21:23 - Problem List (1) Complicated urinary tract infection SNOMED Code(s): 48794327 ICD Code: N39.0 - URINARY TRACT INFECTION, SITE NOT SPECIFIED Status: Acute Priority: High Current Visit: Yes (2) CKD (chronic kidney disease), stage IV SNOMED Code(s): 876897039 ICD Code: N18.4 - CHRONIC KIDNEY DISEASE, STAGE 4 (SEVERE) Status: Chronic Priority: High Current Visit: Yes (3) Dementia associated with Parkinson's disease SNOMED Code(s): 601453438 ICD Code: G20 - PARKINSON'S DISEASE; F02.80 - DEMENTIA IN OTH DISEASES CLASSD ELSWHR W/O BEHAVRL DISTURB Status: Chronic Priority: High Current Visit: Yes (4) History of Clostridioides difficile infection SNOMED Code(s): 626729882, 654037622 ICD Code: Z86.19 - PERSONAL HISTORY OF OTHER INFECTIOUS AND PARASITIC DISEASES Status: Acute Priority: Low Current Visit: Yes Problem List Initiated/Reviewed/Updated: Yes Orders Last 24hrs: Active Orders 24 hr Category Date Time Status Patient Status Manage Transfer [TRANSFER] Routine ADT 08/09/19 22:44 Ordered Peripheral IV Care [RC] . DIRECTED Care 08/09/19 21:32 Active CULTURE BLOOD [BC] Urgent Lab 08/09/19 21:35 Received CULTURE BLOOD [BC] Urgent Lab 08/09/19 21:45 Received CULTURE URINE [RM] Stat Lab 08/09/19 21:59 Received Sodium Chloride 0.9% [Saline Flush] Med 08/09/19 21:31 Active 10 ml FLUSH ASDIRECTED PRN Blood Culture x2 Reflex Set [OM.PC] Urgent Oth 08/09/19 21:32 Ordered Peripheral IV Insertion Adult [OM.PC] Routine Oth 08/09/19 21:31 Ordered Resuscitation Status Routine Resus Stat 08/09/19 22:45 Ordered Medication Orders Sodium Chloride (Saline Flush) 10 ml FLUSH ASDIRECTED PRN PRN Reason: Keep Vein Open Last Admin: 08/09/19 21:52 Dose: 10 ml Assessment/Plan Comment:: ASSESSMENT AND PLAN - Complicated Urinary Tract Infection, suprapubic cath. - Alcides is an 89 year old male, history of dementia and Parkinson's, presents to the ED today via EMS with reported fever of 101 at [facility]. No other concerns mentioned in report. Patient is unable to provide a history. reports that patient has had ongoing issues with UTI's which then are treated with antibiotics, then patient develops C diff. Patient currently has soft stools, no watery diarrhea. No current antibiotics. Onset: Today ER work up includes CBC WBC 33,300, hemoglobin 10.6, hemocrit 33.5, Chemistry Na + 137, K+ 3.5, anion gap 17.5, cr 2.3, gfr 27 urine +nitrates are seen, radiologist report chest without infiltrate, nodule noted but unchanged from chest x-ray one month ago. plan to admit to hospital. Vani agrees with plan of care. Complicated UTI with suprapubic cath. -IV fluids Normal Saline 80ml/hr -Antibiotic coverage with IV Ceftriaxone 1 gram every 24 hours. -blood cultures X 2 -Blood testing in am CBC, BMP Kidney disease stage 4, creatinine 2.4, GFR 27 -I&O -BMP in am Parkinson Disease with dementia, visual hallucination, agitation, speech not understandable. Progressive declines in abilities to speak, move or care for himself. would like to speak to a Survey Questionnaire Designer, concerns the Memory Care Unit can not take of his multiple health needs. Recent discharge from [facility] to Memory Care Unit at [facility] on 07-30-2019 -high risk for falls -Pressure reduction mattress -consult to Social Service/Wound Care Rn History of C-diff -monitor for diarrhea, test as indicated Maintenance issues - - DVT prophylaxis - SCD - GI prophylaxis - PPI - Nutrition - regular - suprapubic catheter for the past 3 years -consult to Spiritual CODE STATUS - DNR-DNI Admission justification - This patient will be admitted for inpatient services and is medically appropriate meeting medical necessity for inpatient admission as outlined in my documentation. I reasonably expect the patient will require inpatient services that span a period time over 2 midnights. I reasonably expect this patient to be discharged or transferred within 96 hours after [facility]. Disposition - anticipate discharge [facility] after the hospital stay Primary care physician - Dr Mann Hospitalist - Mike Parkinson M.D. - Mortality Measure Prognosis:: Poor
[2019-08-09] MEDS ORDERED: Albuterol 0.083% 2.5 MG/3 ML Neb Soln NEB PRN (23:08)
[2019-08-09] MEDS ORDERED: Acetaminophen 650 MG Supp RECTAL PRN (23:08)
[2019-08-09] MEDS ORDERED: Ondansetron 4 MG Tab.DIS PO PRN (23:08)
[2019-08-09] MEDS ORDERED: Dimethicone 20%/Zinc Oxide 25% 56 GM Spray Bottle TOP PRN (23:47)
[2019-08-10] MEDS: Sodium Chloride 0.9% 1,000 ML IV SCH ×2 (00:23→12:31)
--- NOTE | 2019-08-10 06:28 | PCM.SN ---
- Free Text/Narrative Note: Time: 529 call from [address] [place] [address] o: intermittent fevers during the night 38.2, 38.3, now at 37.1 one black stool during the night. Hemoglobin decreased this morning from 10.6 to 9.0, CBC wbc [place] [address] [place] [address] a; Urinary tract infection, concerns for lower GI bleed p; fecal occult stool x3, monitor hemoglobin. continue present plan of care.
[2019-08-10] MEDS: Carbidopa/Levodopa 25-100 MG Tab PO SCH ×4 (07:00→21:24)
[2019-08-10] MEDS: Ferrous Sulfate 325 MG Tab PO SCH (08:17)
[2019-08-10] MEDS: Lactobacillus Rhamnosus GG (Probiotic) Cap PO SCH ×2 (08:19→21:24)
[2019-08-10] MEDS: Acetaminophen 325 MG Tab PO SCH ×3 (08:19→21:24)
[2019-08-10] MEDS: Pantoprazole 40 MG Vial IVPUSH SCH (09:06)
--- NOTE | 2019-08-10 13:09 | PCM.PN ---
- General Info Date of Service: 08/10/19 Subjective Update: Mr. Cheatham is an 89-year-old gentleman who was admitted through the emergency department last night with weakness and lethargy secondary to underlying urinary tract infection. He has a history of recent hospitalization for UTI as well as treatment on 2 occasions for Clostridium difficile colitis. He has Parkinson's disease and underlying dementia. Over the past few months has shown a slow progressive decline in physical strength as well as cognitive function. He is unable to provide a meaningful history concerning recent symptoms or review of systems because of his underlying dementia. Functional Status: Reports: Tolerating Diet. Denies: Urinating (Suprapubic catheter) - Patient Data Vitals - Most Recent: Last Vital Signs Temp 97.8 F 08/10/19 10:40 Pulse 74 08/10/19 10:40 Resp 20 08/10/19 10:40 BP 92/45 L 08/10/19 10:40 Pulse Ox 91 L 08/10/19 10:40 Weight - Most Recent: 115 lb 3.064 oz I&O - Last 24 Hours: Intake & Output 08/09/19 08/10/19 08/10/19 22:59 06:59 14:59 Intake Total 604 1132 Output Total 350 Balance 254 1132 Lab Results Last 24 Hours: Laboratory Results - last 24 hr 08/09/19 08/09/19 08/09/19 Range/Units 21:23 21:23 21:32 WBC 33.3 H* (4.5-11.0) K/uL RBC 3.31 L (4.30-5.90) M/uL Hgb 10.6 L (12.0-15.0) g/dL Hct 33.5 L (40.0-54.0) % MCV 101 H (80-98) fL MCH 32 H (27-31) pg MCHC 32 (32-36) % Plt Count 356 (150-400) K/uL Neut % (Auto) 91 H (36-66) % Lymph % (Auto) 4 L (24-44) % [place] % (Auto) 5 (2-6) % Eos % (Auto) 0 L (2-4) % Baso % (Auto) 0 (0-1) % Sodium 137 L (140-148) mmol/L Potassium 4.5 (3.6-5.2) mmol/L Chloride 103 (100-108) mmol/L Carbon Dioxide 21 (21-32) mmol/L Anion Gap 17.5 H (5.0-14.0) mmol/L BUN 38 H (7-18) mg/dL Creatinine 2.3 H (0.8-1.3) mg/dL Est Cr Clr Drug Dosing 16.41 mL/min Estimated GFR (MDRD) 27 L (>60) Glucose 117 H (74-106) mg/dL Lactic Acid 1.4 (0.4-2.0) mmol/L Calcium 9.0 (8.5-10.1) mg/dL C-Reactive Protein (0.0-0.3) mg/dL Urine Color (YELLOW) Urine Appearance (CLEAR) Urine pH (5.0-8.0) Ur Specific [place] (1.008-1.030) Urine Protein (NEGATIVE) mg/dL Urine Glucose (UA) (NEGATIVE) mg/dL Urine Ketones (NEGATIVE) mg/dL Urine Occult Blood (NEGATIVE) Urine Nitrite (NEGATIVE) Urine Bilirubin (NEGATIVE) Urine Urobilinogen (0.2-1.0) EU/dL Ur Leukocyte Esterase (NEGATIVE) Urine RBC (0-5) Urine WBC (0-5) Ur Epithelial Cells Amorphous Sediment Urine Bacteria Urine Mucus 08/09/19 08/10/19 08/10/19 Range/Units 21:54 05:07 05:07 WBC 32.7 H* (4.5-11.0) K/uL RBC 2.87 L (4.30-5.90) M/uL Hgb 9.0 L (12.0-15.0) g/dL Hct 29.2 L (40.0-54.0) % MCV 102 H (80-98) fL MCH 31 (27-31) pg MCHC 31 L (32-36) % Plt Count 298 (150-400) K/uL Neut % (Auto) 92 H (36-66) % Lymph % (Auto) 3 L (24-44) % [place] % (Auto) 4 (2-6) % Eos % (Auto) 0 L (2-4) % Baso % (Auto) 0 (0-1) % Sodium 138 L (140-148) mmol/L Potassium 4.0 (3.6-5.2) mmol/L Chloride 107 (100-108) mmol/L Carbon Dioxide 20 L (21-32) mmol/L Anion Gap 15.0 H (5.0-14.0) mmol/L BUN 35 H (7-18) mg/dL Creatinine 2.0 H (0.8-1.3) mg/dL Est Cr Clr Drug Dosing 18.87 mL/min Estimated GFR (MDRD) 32 L (>60) Glucose 99 (74-106) mg/dL Lactic Acid (0.4-2.0) mmol/L Calcium 8.5 (8.5-10.1) mg/dL C-Reactive Protein 18.31 H (0.0-0.3) mg/dL Urine Color Yellow (YELLOW) Urine Appearance Slightly cloudy A (CLEAR) Urine pH 5.5 (5.0-8.0) Ur Specific [place] 1.020 (1.008-1.030) Urine Protein 100 H (NEGATIVE) mg/dL Urine Glucose (UA) Negative (NEGATIVE) mg/dL Urine Ketones Trace H (NEGATIVE) mg/dL Urine Occult Blood Trace-intact H (NEGATIVE) Urine Nitrite Positive H (NEGATIVE) Urine Bilirubin Negative (NEGATIVE) Urine Urobilinogen 0.2 (0.2-1.0) EU/dL Ur Leukocyte Esterase Small H (NEGATIVE) Urine RBC 5-10 H (0-5) Urine WBC 10-20 H (0-5) Ur Epithelial Cells Few Amorphous Sediment Not seen Urine Bacteria Many Urine Mucus Few [place]car Results Last 24 Hours: Microbiology 08/10/19 05:32 Stool Occult Blood (AMILCAR) - Final Stool / Feces NEGATIVE OCCULT BLOOD REFERENCE RANGE: NEGATIVE Med Orders - Current: Current Medications Acetaminophen (Tylenol) 650 mg RECTAL Q4H PRN PRN Reason: Mild pain/fever Last Admin: 08/10/19 03:01 Dose: 650 mg Acetaminophen (Tylenol) 650 mg PO TID [facility] Last Admin: 08/10/19 08:19 Dose: 650 mg Albuterol (Proventil Neb Soln) 2.5 mg NEB Q4H PRN PRN Reason: Shortness Of Breath/wheezing Carbidopa/Levodopa (Sinemet 25-100 Mg) 1 tab PO QID [facility] Last Admin: 08/10/19 10:39 Dose: 1 tab Dimethicone/Zinc Oxide (Rash Relief-Zinc Oxide [place]) 0 gm TOP ASDIRECTED PRN PRN Reason: Rash Last Admin: 08/10/19 03:05 Dose: 1 applic Ferrous Sulfate (Ferrous Sulfate) 325 mg PO DAILY@0800 [facility] Last Admin: 08/10/19 08:17 Dose: 325 mg Ceftriaxone Sodium 1 gm/ (Sodium Chloride) 50 mls @ 100 mls/hr IV Q24H [facility] Sodium Chloride (Normal Saline) 1,000 mls @ 80 mls/hr IV ASDIRECTED [facility] Last Admin: 08/10/19 12:31 Dose: 80 mls/hr Influenza Virus Vaccine (Fluzone High-Dose Syringe) 180 mcg IM .ONCE ONE Stop: 08/12/19 10:01 Lactobacillus Rhamnosus (Culturelle) 2 cap PO BID [facility] Last Admin: 08/10/19 08:19 Dose: 2 cap Ondansetron HCl (Zofran Odt) 4 mg PO Q6H PRN PRN Reason: Nausea able to take PO Pantoprazole Sodium (Protonix Iv) 40 mg IVPUSH DAILY [facility] Last Admin: 08/10/19 09:06 Dose: 40 mg Discontinued Medications Sodium Chloride (Normal Saline) 1,000 mls @ 999 mls/hr IV .BOLUS ONE Stop: 08/09/19 22:32 Last Admin: 08/09/19 21:52 Dose: 999 mls/hr Sodium Chloride (Normal Saline) 80 mls @ 3.5 mls/sec IV ONETIME ONE Stop: 08/09/19 21:54 Last Admin: 08/10/19 00:23 Dose: Not Given Ceftriaxone Sodium 1 gm/ (Sodium Chloride) 50 mls @ 100 mls/hr IV ONETIME ONE Stop: 08/09/19 22:28 Last Admin: 08/09/19 22:13 Dose: 100 mls/hr Iopamidol (Isovue-300 (61%)) 135 ml IV . DIRECTED [facility] Sodium Chloride (Saline Flush) 10 ml FLUSH ASDIRECTED PRN PRN Reason: Keep Vein Open Last Admin: 08/09/19 21:52 Dose: 10 ml Sodium Chloride (Saline Flush) 10 ml FLUSH ONETIME ONE Stop: 08/09/19 21:54 Last Admin: 08/10/19 03:30 Dose: Not Given - Exam Quality Assessment: DVT Prophylaxis General: Alert, Cooperative, Mild Distress. No: Oriented Lungs: Clear to Auscultation, Normal Respiratory Effort Cardiovascular: Regular Rate, Regular Rhythm, No Murmurs GI/Abdominal Exam: Soft, Non-Tender, No Organomegaly, No Distention, Other ( Suprapubic catheter) - Problem List Review Problem List Initiated/Reviewed/Updated: Yes - My Orders Last 24 Hours: My Active Orders 08/10/19 12:51 CLOSTRIDIUM DIFFICILE BY PCR [RM] Stat 08/10/19 12:52 Isolation [COMM] Stat 08/11/19 05:00 BASIC METABOLIC PANEL,BMP [CHEM] Timed CBC WITH AUTO DIFF [HEME] Timed - Plan Plan:: ASSESSMENT AND PLAN Complicated UTI with suprapubic cath. -IV fluids Normal Saline 80ml/hr -Antibiotic coverage with IV Ceftriaxone 1 gram every 24 hours. -blood cultures X 2 and urine culture pending -Blood testing in am CBC, BMP Kidney disease stage 4, creatinine 2.4, GFR 27 -I&O -BMP in am Parkinson Disease with dementia, visual hallucination, agitation, speech not understandable. Progressive declines in abilities to speak, move or care for himself. would like to speak to a Educational Aide, concerns the Memory Care Unit can not take of his multiple health needs. Recent discharge from [facility] to Memory Care Unit at [facility] on 07-30-2019 -high risk for falls -Pressure reduction mattress -Hospice consult History of [id number] present prior to admission which has persisted during early hospitalization -Retest for Clostridium difficile Maintenance issues - - DVT prophylaxis - SCD - GI prophylaxis - PPI - Nutrition - regular - suprapubic catheter for the past 3 years CODE STATUS - DNR-DNI Admission justification - This patient will be admitted for inpatient services and is medically appropriate meeting medical necessity for inpatient admission as outlined in my documentation. I reasonably expect the patient will require inpatient services that span a period time over 2 midnights. I reasonably expect this patient to be discharged or transferred within 96 hours after admission to the [facility]. Disposition - anticipate discharge [facility] after the hospital stay Primary care physician - Dr Mann Hospitalist - Dylan Langford M.D.
[2019-08-10] MEDS: cefTRIAXone 1 GM in Sodium Chloride 0.9% 50 ML IV SCH (21:24)
[2019-08-11] MEDS ORDERED: Vancomycin 1 GM SDV ONE (00:39)
[2019-08-11] MEDS ORDERED: Water For Injection, Sterile 10 ML SDV ONE (00:44)
[2019-08-11] MEDS: Vancomycin 250 MG/5 ML ML Oral Solution PO SCH ×5 (00:55→23:50)
[2019-08-11] MEDS: Sodium Chloride 0.9% 1,000 ML IV SCH (01:40)
[2019-08-11] MEDS: Carbidopa/Levodopa 25-100 MG Tab PO SCH ×5 (06:02→21:08)
[2019-08-11] MEDS: Lactobacillus Rhamnosus GG (Probiotic) Cap PO SCH ×2 (09:16→20:00)
[2019-08-11] MEDS: Ferrous Sulfate 325 MG Tab PO SCH (09:16)
[2019-08-11] MEDS: Pantoprazole 40 MG Vial IVPUSH SCH (09:17)
[2019-08-11] MEDS: Acetaminophen 325 MG Tab PO SCH ×3 (09:17→20:00)
--- NOTE | 2019-08-11 13:13 | PCM.PN ---
- General Info Date of Service: 08/11/19 Subjective Update: Mr. Cheatham appears improved today, less lethargic and more interactive. Stool study for Clostridium difficile was found to be positive and he has been started on oral vancomycin. Because of his significant dementia and confusion he is unable to provide a meaningful history concerning recent symptoms or review of systems. Functional Status: Reports: Tolerating Diet - Patient Data Vitals - Most Recent: Last Vital Signs Temp 98.1 F 08/11/19 07:31 Pulse 90 08/11/19 07:31 Resp 18 08/11/19 07:31 BP 125/60 08/11/19 07:31 Pulse Ox 95 08/11/19 07:31 Weight - Most Recent: 115 lb I&O - Last 24 Hours: Intake & Output 08/10/19 08/11/19 08/11/19 22:59 06:59 14:59 Intake Total 1503 110 600 Output Total 301 75 Balance 1202 35 600 Lab Results Last 24 Hours: Laboratory Results - last 24 hr 08/11/19 08/11/19 Range/Units 04:45 04:45 WBC 26.3 H (4.5-11.0) K/uL RBC 2.79 L (4.30-5.90) M/uL Hgb 8.9 L (12.0-15.0) g/dL Hct 28.2 L (40.0-54.0) % MCV 101 H (80-98) fL MCH 32 H (27-31) pg MCHC 32 (32-36) % Plt Count 269 (150-400) K/uL Neut % (Auto) 89 H (36-66) % Lymph % (Auto) 5 L (24-44) % [place] % (Auto) 6 (2-6) % Eos % (Auto) 1 L (2-4) % Baso % (Auto) 0 (0-1) % Sodium 142 (140-148) mmol/L Potassium 3.9 (3.6-5.2) mmol/L Chloride 111 H (100-108) mmol/L Carbon Dioxide 20 L (21-32) mmol/L Anion Gap 14.9 H (5.0-14.0) mmol/L BUN 33 H (7-18) mg/dL Creatinine 1.9 H (0.8-1.3) mg/dL Est Cr Clr Drug Dosing 19.83 mL/min Estimated GFR (MDRD) 34 L (>60) Glucose 102 (74-106) mg/dL Calcium 8.5 (8.5-10.1) mg/dL Amilcar Results Last 24 Hours: Microbiology 08/09/19 21:59 Urine Culture - Preliminary Urine, Catheterized 08/10/19 22:40 Clostridioides difficile (PCR) - Final Stool / Feces Positive C. Diff Toxin 08/09/19 21:45 Aerobic Blood Culture - Preliminary Blood - Venous - Iv Start NO GROWTH AFTER 1 DAY Anaerobic Blood Culture - Preliminary NO GROWTH AFTER 1 DAY 08/09/19 21:35 Aerobic Blood Culture - Preliminary Blood - Venous - Iv Start NO GROWTH AFTER 1 DAY Anaerobic Blood Culture - Preliminary NO GROWTH AFTER 1 DAY 08/10/19 05:32 Stool Occult Blood (AMILCAR) - Final Stool / Feces NEGATIVE OCCULT BLOOD REFERENCE RANGE: NEGATIVE Med Orders - Current: Current Medications Acetaminophen (Tylenol) 650 mg RECTAL Q4H PRN PRN Reason: Mild pain/fever Last Admin: 08/10/19 03:01 Dose: 650 mg Acetaminophen (Tylenol) 650 mg PO TID [facility] Last Admin: 08/11/19 09:17 Dose: 650 mg Albuterol (Proventil Neb Soln) 2.5 mg NEB Q4H PRN PRN Reason: Shortness Of Breath/wheezing Carbidopa/Levodopa (Sinemet 25-100 Mg) 1 tab PO QID [facility] Last Admin: 08/11/19 09:16 Dose: 1 tab Dimethicone/Zinc Oxide (Rash Relief-Zinc Oxide [place]) 0 gm TOP ASDIRECTED PRN PRN Reason: Rash Last Admin: 08/10/19 03:05 Dose: 1 applic Ferrous Sulfate (Ferrous Sulfate) 325 mg PO DAILY@0800 [facility] Last Admin: 08/11/19 09:16 Dose: 325 mg Ceftriaxone Sodium 1 gm/ (Sodium Chloride) 50 mls @ 100 mls/hr IV Q24H [facility] Last Admin: 08/10/19 21:24 Dose: 100 mls/hr Influenza Virus Vaccine (Fluzone High-Dose 2018- Syringe) 180 mcg IM .ONCE ONE Stop: 08/12/19 10:01 Lactobacillus Rhamnosus (Culturelle) 2 cap PO BID [facility] Last Admin: 08/11/19 09:16 Dose: 2 cap Ondansetron HCl (Zofran Odt) 4 mg PO Q6H PRN PRN Reason: Nausea able to take PO Pantoprazole Sodium (Protonix) 40 mg PO ACBREAKFAST [facility] Vancomycin HCl (Vancocin 250 Mg/5 Ml Soln) 125 mg PO Q6H [facility] Last Admin: 08/11/19 12:30 Dose: 125 mg Discontinued Medications Sodium Chloride (Normal Saline) 1,000 mls @ 999 mls/hr IV .BOLUS ONE Stop: 08/09/19 22:32 Last Admin: 08/09/19 21:52 Dose: 999 mls/hr Sodium Chloride (Normal Saline) 80 mls @ 3.5 mls/sec IV ONETIME ONE Stop: 08/09/19 21:54 Last Admin: 08/10/19 00:23 Dose: Not Given Ceftriaxone Sodium 1 gm/ (Sodium Chloride) 50 mls @ 100 mls/hr IV ONETIME ONE Stop: 08/09/19 22:28 Last Admin: 08/09/19 22:13 Dose: 100 mls/hr Sodium Chloride (Normal Saline) 1,000 mls @ 80 mls/hr IV ASDIRECTED [facility] Last Admin: 08/11/19 01:40 Dose: 80 mls/hr Iopamidol (Isovue-300 (61%)) 135 ml IV . DIRECTED [facility] Pantoprazole Sodium (Protonix Iv) 40 mg IVPUSH DAILY [facility] Last Admin: 08/11/19 09:17 Dose: 40 mg Sodium Chloride (Saline Flush) 10 ml FLUSH ASDIRECTED PRN PRN Reason: Keep Vein Open Last Admin: 08/09/19 21:52 Dose: 10 ml Sodium Chloride (Saline Flush) 10 ml FLUSH ONETIME ONE Stop: 08/09/19 21:54 Last Admin: 08/10/19 03:30 Dose: Not Given Sterile Water (Sterile Water For Injection) Confirm Administered Dose 20 ml .ROUTE .STK-MED ONE Stop: 08/11/19 00:45 Last Admin: 08/11/19 00:55 Dose: 20 ml Vancomycin HCl (Vancomycin) Confirm Administered Dose 1 gm .ROUTE .STK-MED ONE Stop: 08/11/19 00:40 Last Admin: 08/11/19 00:54 Dose: 1 gm - Exam Quality Assessment: DVT Prophylaxis General: Alert, Cooperative, No Acute Distress. No: Oriented Lungs: Clear to Auscultation, Normal Respiratory Effort Cardiovascular: Regular Rate, Regular Rhythm, No Murmurs GI/Abdominal Exam: Soft, Non-Tender, No Organomegaly, No Distention Extremities: Non-Tender, No Pedal Edema - Problem List Review Problem List Initiated/Reviewed/Updated: Yes - My Orders Last 24 Hours: My Active Orders 08/10/19 12:52 Isolation [COMM] Stat 08/10/19 16:07 Consult to Physical Therapy [PT Evaluation and Treatment] [CONS] Routine 08/11/19 00:00 Vancomycin [Vancocin 250 MG/5 ML Soln] 125 mg PO Q6H 08/11/19 12:31 Convert IV to Saline Lock [OM.PC] Routine 08/12/19 05:00 BASIC METABOLIC PANEL,BMP [CHEM] Timed CBC WITH AUTO DIFF [HEME] Timed 08/12/19 07:30 Pantoprazole [ProTONIX] 40 mg PO ACBREAKFAST - Plan Plan:: ASSESSMENT AND PLAN Complicated UTI with suprapubic cath.-Blood cultures remain negative, urine culture growing gram-negative melly -Saline lock IV -Antibiotic coverage with IV Ceftriaxone 1 gram every 24 hours. -blood cultures X 2 and urine culture pending -Blood testing in am CBC, BMP Kidney disease stage 4, creatinine 2.4, GFR 27 -I&O -BMP in am Parkinson Disease with dementia, visual hallucination, agitation, speech not understandable. Progressive declines in abilities to speak, move or care for himself. would like to speak to a [employer], concerns the Memory Care Unit can not take of his multiple health needs. Recent discharge from [facility] to Memory Care Unit at [facility] on 07-30-2019 -high risk for falls -Pressure reduction mattress -Hospice consult History of [id number] for Clostridium difficile was found to be positive, this is now his third episode over the past few months -Vancomycin 125 mg by mouth every 6 hours, will plan for prolonged recurring course -Consider stool transplant therapy Maintenance issues - - DVT prophylaxis - SCD - GI prophylaxis - PPI - Nutrition - regular - suprapubic catheter for the past 3 years CODE STATUS - DNR-DNI Admission justification - This patient will be admitted for inpatient services and is medically appropriate meeting medical necessity for inpatient admission as outlined in my documentation. I reasonably expect the patient will require inpatient services that span a period time over 2 midnights. I reasonably expect this patient to be discharged or transferred within 96 hours after admission to the [facility]. Disposition - anticipate discharge Correction after the hospital stay Primary care physician - Dr Mann Hospitalist - Dylan Langford M.D.
[2019-08-11] MEDS: cefTRIAXone 1 GM in Sodium Chloride 0.9% 50 ML IV SCH (20:00)
[2019-08-12] MEDS: Vancomycin 250 MG/5 ML ML Oral Solution PO SCH ×3 (05:37→17:22)
[2019-08-12] MEDS: Carbidopa/Levodopa 25-100 MG Tab PO SCH ×5 (05:37→21:32)
[2019-08-12] MEDS: Ferrous Sulfate 325 MG Tab PO SCH (08:34)
[2019-08-12] MEDS: Pantoprazole 40 MG Tab.CR PO SCH (08:34)
[2019-08-12] MEDS: Lactobacillus Rhamnosus GG (Probiotic) Cap PO SCH ×2 (08:35→20:02)
[2019-08-12] MEDS: Acetaminophen 325 MG Tab PO SCH ×3 (08:36→20:02)
--- NOTE | 2019-08-12 12:38 | PCM.PN ---
- General Info Date of Service: 08/12/19 Subjective Update: Mr. Cheatham has been stable since yesterday, much improved from admission, more alert and interactive. Vital signs have remained stable and he has been afebrile. He is unable to provide meaningful history concerning symptoms or review of systems because of his dementia and confusion. Functional Status: Reports: Tolerating Diet, Urinating - Patient Data Vitals - Most Recent: Last Vital Signs Temp 96.9 F 08/12/19 11:06 Pulse 84 08/12/19 11:06 Resp 20 08/12/19 11:06 BP 105/54 L 08/12/19 11:06 Pulse Ox 97 08/12/19 11:06 Weight - Most Recent: 115 lb I&O - Last 24 Hours: Intake & Output 08/11/19 08/12/19 08/12/19 22:59 06:59 14:59 Intake Total 500 Output Total 400 400 175 Balance 100 -400 -175 Lab Results Last 24 Hours: Laboratory Results - last 24 hr 08/12/19 08/12/19 Range/Units 04:50 04:50 WBC 17.5 H (4.5-11.0) K/uL RBC 2.80 L (4.30-5.90) M/uL Hgb 8.9 L (12.0-15.0) g/dL Hct 28.0 L (40.0-54.0) % MCV 100 H (80-98) fL MCH 32 H (27-31) pg MCHC 32 (32-36) % Plt Count 313 (150-400) K/uL Neut % (Auto) 86 H (36-66) % Lymph % (Auto) 7 L (24-44) % [place] % (Auto) 6 (2-6) % Eos % (Auto) 2 (2-4) % Baso % (Auto) 0 (0-1) % Sodium 142 (140-148) mmol/L Potassium 3.8 (3.6-5.2) mmol/L Chloride 112 H (100-108) mmol/L Carbon Dioxide 18 L (21-32) mmol/L Anion Gap 15.8 H (5.0-14.0) mmol/L BUN 35 H (7-18) mg/dL Creatinine 1.9 H (0.8-1.3) mg/dL Est Cr Clr Drug Dosing 19.83 mL/min Estimated GFR (MDRD) 34 L (>60) Glucose 92 (74-106) mg/dL Calcium 8.5 (8.5-10.1) mg/dL Amilcar Results Last 24 Hours: Microbiology 08/09/19 21:59 Urine Culture - Final Urine, Catheterized Pseudomonas Aeruginosa 08/09/19 21:45 Aerobic Blood Culture - Preliminary Blood - Venous - Iv Start NO GROWTH AFTER 2 DAYS Anaerobic Blood Culture - Preliminary NO GROWTH AFTER 2 DAYS 08/09/19 21:35 Aerobic Blood Culture - Preliminary Blood - Venous - Iv Start NO GROWTH AFTER 2 DAYS Anaerobic Blood Culture - Preliminary NO GROWTH AFTER 2 DAYS Med Orders - Current: Current Medications Acetaminophen (Tylenol) 650 mg RECTAL Q4H PRN PRN Reason: Mild pain/fever Last Admin: 08/10/19 03:01 Dose: 650 mg Acetaminophen (Tylenol) 650 mg PO TID [facility] Last Admin: 08/12/19 08:36 Dose: 650 mg Albuterol (Proventil Neb Soln) 2.5 mg NEB Q4H PRN PRN Reason: Shortness Of Breath/wheezing Carbidopa/Levodopa (Sinemet 25-100 Mg) 1 tab PO QID [facility] Last Admin: 08/12/19 10:19 Dose: 1 tab Dimethicone/Zinc Oxide (Rash Relief-Zinc Oxide [place]) 0 gm TOP ASDIRECTED PRN PRN Reason: Rash Last Admin: 08/10/19 03:05 Dose: 1 applic Ferrous Sulfate (Ferrous Sulfate) 325 mg PO DAILY@0800 [facility] Last Admin: 08/12/19 08:34 Dose: 325 mg Ceftriaxone Sodium 1 gm/ (Sodium Chloride) 50 mls @ 100 mls/hr IV Q24H [facility] Last Admin: 08/11/19 20:00 Dose: 100 mls/hr Lactobacillus Rhamnosus (Culturelle) 2 cap PO BID [facility] Last Admin: 08/12/19 08:35 Dose: 2 cap Ondansetron HCl (Zofran Odt) 4 mg PO Q6H PRN PRN Reason: Nausea able to take PO Pantoprazole Sodium (Protonix) 40 mg PO ACBREAKFAST [facility] Last Admin: 08/12/19 08:34 Dose: 40 mg Vancomycin HCl (Vancocin 250 Mg/5 Ml Soln) 125 mg PO Q6H [facility] Last Admin: 08/12/19 11:26 Dose: 125 mg Discontinued Medications Sodium Chloride (Normal Saline) 1,000 mls @ 999 mls/hr IV .BOLUS ONE Stop: 08/09/19 22:32 Last Admin: 08/09/19 21:52 Dose: 999 mls/hr Sodium Chloride (Normal Saline) 80 mls @ 3.5 mls/sec IV ONETIME ONE Stop: 08/09/19 21:54 Last Admin: 08/10/19 00:23 Dose: Not Given Ceftriaxone Sodium 1 gm/ (Sodium Chloride) 50 mls @ 100 mls/hr IV ONETIME ONE Stop: 08/09/19 22:28 Last Admin: 08/09/19 22:13 Dose: 100 mls/hr Sodium Chloride (Normal Saline) 1,000 mls @ 80 mls/hr IV ASDIRECTED [facility] Last Admin: 08/11/19 01:40 Dose: 80 mls/hr Influenza Virus Vaccine (Fluzone High-Dose 2019-20 Syringe) 180 mcg IM .ONCE ONE Stop: 08/12/19 10:01 Last Admin: 08/12/19 10:21 Dose: 180 mcg Iopamidol (Isovue-300 (61%)) 135 ml IV . DIRECTED [facility] Pantoprazole Sodium (Protonix Iv) 40 mg IVPUSH DAILY [facility] Last Admin: 08/11/19 09:17 Dose: 40 mg Sodium Chloride (Saline Flush) 10 ml FLUSH ASDIRECTED PRN PRN Reason: Keep Vein Open Last Admin: 08/09/19 21:52 Dose: 10 ml Sodium Chloride (Saline Flush) 10 ml FLUSH ONETIME ONE Stop: 08/09/19 21:54 Last Admin: 08/10/19 03:30 Dose: Not Given Sterile Water (Sterile Water For Injection) Confirm Administered Dose 20 ml .ROUTE .STK-MED ONE Stop: 08/11/19 00:45 Last Admin: 08/11/19 00:55 Dose: 20 ml Vancomycin HCl (Vancomycin) Confirm Administered Dose 1 gm .ROUTE .STK-MED ONE Stop: 08/11/19 00:40 Last Admin: 08/11/19 00:54 Dose: 1 gm - Exam General: Alert, Cooperative, No Acute Distress. No: Oriented Lungs: Clear to Auscultation, Normal Respiratory Effort Cardiovascular: Regular Rate, Regular Rhythm, No Murmurs GI/Abdominal Exam: Soft, Non-Tender, No Organomegaly, No Distention Extremities: Non-Tender, No Pedal Edema - Problem List Review Problem List Initiated/Reviewed/Updated: Yes - My Orders Last 24 Hours: My Active Orders 08/11/19 12:31 Convert IV to Saline Lock [OM.PC] Routine 08/12/19 07:30 Pantoprazole [ProTONIX] 40 mg PO ACBREAKFAST 08/13/19 05:00 BASIC METABOLIC PANEL,BMP [CHEM] Timed CBC WITH AUTO DIFF [HEME] Timed - Plan Plan:: ASSESSMENT AND PLAN Complicated UTI with suprapubic cath.-Blood cultures remain negative, urine culture growing Pseudomonas, blood cultures remain negative -Saline lock IV -Antibiotic coverage with IV Ceftriaxone 1 gram every 24 hours. -Because of Pseudomonas will add ciprofloxacin 500 mg twice daily -blood cultures X 2 -Blood testing in am CBC, BMP Kidney disease stage 4-renal function stabilized following hydration -I&O -BMP in am Parkinson Disease with dementia, visual hallucination, agitation, speech not understandable. Progressive declines in abilities to speak, move or care for himself. 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 Recent discharge from [facility] to Memory Care Unit at [facility] on 07-30-2019 -high risk for falls -Pressure reduction mattress -Hospice consult History of [id number] for Clostridium difficile was found to be positive, this is now his third episode over the past few months -Vancomycin 125 mg by mouth every 6 hours, will plan for prolonged tapering course -Consider stool transplant therapy Maintenance issues - - DVT prophylaxis - SCD - GI prophylaxis - PPI - Nutrition - regular - suprapubic catheter for the past 3 years CODE STATUS - DNR-DNI Admission justification - This patient will be admitted for inpatient services and is medically appropriate meeting medical necessity for inpatient admission as outlined in my documentation. I reasonably expect the patient will require inpatient services that span a period time over 2 midnights. I reasonably expect this patient to be discharged or transferred within 96 hours after admission to the [facility]. Disposition - anticipate discharge Halfway after the hospital stay Primary care physician - Dr Mackenzie Perryist - Dylan Langford M.D.
[2019-08-12] MEDS: cefTRIAXone 1 GM in Sodium Chloride 0.9% 50 ML IV SCH (20:02)
[2019-08-13] MEDS: Vancomycin 250 MG/5 ML ML Oral Solution PO SCH ×3 (00:10→11:23)
[2019-08-13] MEDS: Carbidopa/Levodopa 25-100 MG Tab PO SCH ×2 (04:59→09:57)
[2019-08-13] MEDS: Pantoprazole 40 MG Tab.CR PO SCH (08:08)
[2019-08-13] MEDS: Ferrous Sulfate 325 MG Tab PO SCH (08:08)
[2019-08-13] MEDS: Acetaminophen 325 MG Tab PO SCH (08:08)
[2019-08-13 08:11] VITALS: BP 168/74; PULSE 91
[2019-08-13] MEDS ORDERED: Ciprofloxacin 500 MG Tab PO SCH ×2 (09:00)
[2019-08-13] MEDS: Lactobacillus Rhamnosus GG (Probiotic) Cap PO SCH (09:57)
--- NOTE | 2019-08-13 12:34 | PCM.DCSUM1 ---
Discharge Summary - Hospital Course Brief History: Mr. Bailey is an 89-year-old gentleman who was admitted through the emergency department with weakness, lethargy, and fever secondary to urinary tract infection and recurrent C. difficile enterocolitis. - Discharge Data Discharge Date: 08/13/19 Discharge Disposition: Home, Self-Care 01 Condition: Stable - Referral to Home Health Primary Care Physician: Jose Luis Mann MD - Discharge Diagnosis/Problem(s) (1) Clostridium difficile enterocolitis SNOMED Code(s): 326040639, 338733275 ICD Code: A04.72 - ENTEROCOLITIS D/T CLOSTRIDIUM DIFFICILE, NOT SPCF RECUR Status: Acute Current Visit: Yes (2) UTI, Urinary tract infectious disease SNOMED Code(s): 86315568 ICD Code: N39.0 - URINARY TRACT INFECTION, SITE NOT SPECIFIED Status: Acute Current Visit: Yes (3) Leukocytosis SNOMED Code(s): 290144489, 493790461 ICD Code: D72.829 - ELEVATED WHITE BLOOD CELL COUNT, UNSPECIFIED Status: Acute Current Visit: Yes Qualifiers: Leukocytosis type: unspecified Qualified Code(s): D72.829 - Elevated white blood cell count, unspecified (4) CKD (chronic kidney disease), stage IV SNOMED Code(s): 279563602 ICD Code: N18.4 - CHRONIC KIDNEY DISEASE, STAGE 4 (SEVERE) Status: Chronic Priority: High Current Visit: Yes (5) Dementia without behavioral disturbance SNOMED Code(s): 11817617 ICD Code: F03.90 - UNSPECIFIED DEMENTIA WITHOUT BEHAVIORAL DISTURBANCE Status: Chronic Current Visit: Yes Qualifiers: Dementia type: unspecified type Qualified Code(s): F03.90 - Unspecified dementia without behavioral disturbance (6) Parkinson disease SNOMED Code(s): 37083139 ICD Code: G20 - PARKINSON'S DISEASE Status: Chronic Current Visit: No - Patient Summary/Data Consults: Consultations 08/09/19 23:08 Consult to Case Management/Plate Hanger [CONS] Routine Comment: Physician Instructions: Service(s) to be Consulted: Case Manage&Social Servic Reason for Consult: care home Consult to Spiritual Care [CONS] Routine 08/10/19 16:07 Consult to Physical Therapy [PT Evaluation and Treatment] [CONS] Routine Please Evaluate and Treat. PT Reason for Consult: Strengthening This query below is only for informational purposes and is not editable. Admission Diagnosis/Problem: Urinary tract infection Hospital Course: Mr. Bailey is an 89-year-old gentleman who was admitted through the emergency department with weakness, lethargy, and fever secondary to underlying urinary tract infection and recurrent C. difficile colitis. Mr. bailey has a history of significant dementia and was unable to provide meaningful history in Tha recent symptoms or review of systems. On admission mostly history was obtained from the patient's as well as review of past medical records from the hospital. He has had a recent urinary tract infection treated with antibiotics and does have an indwelling suprapubic catheter because of bladder dysfunction. Proximally 6 weeks ago was diagnosed with C. difficile colitis and completed a 2 week course of oral antibiotic therapy with vancomycin. During the recent hospitalization for urinary tract infection was noted to have recurrent diarrhea and received a second course of oral antibiotic therapy with vancomycin for 2 weeks. Over the past few days prior to admission he developed increased weakness and lethargy with increased confusion. On admission he had marked elevation in white blood cell count and was noted to have a fever, lactic acid level was within normal range and he was hemodynamically stable. He was not felt to have sepsis at the time of admission or during his hospital stay. Urine and blood cultures were obtained at the time of admission, blood cultures remain negative, urine culture did grow out Pseudomonas sensitive to all antibiotics. Because of potential resistance with Pseudomonas he was placed on 2 antibiotics with Rocephin and ciprofloxacin. And will be discharged with Omnicef and ciprofloxacin for an additional 4 days. Report on admission was that he had had soft formed stools, after admission was noted to have frequent foul-smelling liquid stools. Because of it had been approximately 6 weeks since his initial stool positive for C. difficile, it was repeated and he was found to have recurrent infection which was present on admission. He was started on oral vancomycin 125 mg 4 times daily. Because of the recurrent C. difficile infections he will be placed on a prolonged tapering dose of vancomycin 125 mg 4 times daily for 2 weeks, then 125 mg twice daily for 1 week, then 125 mg daily for 1 week, then 125 mg every other day for 8 weeks. With interventions in the hospital including IV fluids and initiation of antibiotic therapy he improved significantly and was back to baseline by the time of discharge. Renal function also improved with hydration. Activity will be as tolerated and he will resume his usual diet. If he should develop recurrent C. difficile colitis despite tapering dose of vancomycin consideration should be given to fecal transplant. - Patient Instructions Diet: Usual Diet as Tolerated Activity: As Tolerated Other/Special Instructions: Please schedule follow-up appointment with primary care provider within one week. - Discharge Plan *PRESCRIPTION DRUG MONITORING PROGRAM REVIEWED*: Not Applicable *COPY OF PRESCRIPTION DRUG MONITORING REPORT IN PATIENT JON: Not Applicable Prescriptions/Med Rec: Cefdinir [Omnicef] 300 mg PO BID #8 cap Ciprofloxacin [Ciprofloxacin HCl] 500 mg PO Q18H #4 tablet Vancomycin [Vancocin 250 MG/5 ML Soln] 125 mg PO QID #150 ml Home Medications: Home Meds Simvastatin 20 mg PO BEDTIME 02/02/16 [History] Ferrous Sulfate 325 mg PO DAILY 06/10/19 [History] Acetaminophen [Pain Reliever] 650 mg PO TID 07/07/19 [History] Carbidopa/Levodopa [Carbidopa-Levodopa 25-100] 1 tab PO QID #120 tablet [Rx] Lactobacillus Rhamnosus GG [Culturelle] 2 cap PO BID #60 cap 07/10/19 [Rx] Cefdinir [Omnicef] 300 mg PO BID #8 cap 08/13/19 [Rx] Ciprofloxacin [Ciprofloxacin HCl] 500 mg PO Q18H #4 tablet 08/13/19 [Rx] Vancomycin [Vancocin 250 MG/5 ML Soln] 125 mg PO QID #150 ml 08/13/19 [Rx] Referrals: Jose Luis Mann MD [Primary Care Provider] - 08/18/19 1:00 pm (Please arrive 15 minutes early to register for your appointment.) - Discharge Summary/Plan Comment DC Time >30 min.: No - Patient Data Vitals - Most Recent: Last Vital Signs Temp 97.6 F 08/13/19 08:09 Pulse 91 08/13/19 08:09 Resp 16 08/13/19 08:09 BP 168/74 H 08/13/19 08:09 Pulse Ox 97 08/13/19 08:09 Weight - Most Recent: 115 lb I&O - Last 24 hours: Intake & Output 08/12/19 08/13/19 08/13/19 22:59 06:59 14:59 Intake Total 200 75 240 Output Total 550 Balance 200 -475 240 Lab Results - Last 24 hrs: Laboratory Results - last 24 hr 08/13/19 08/13/19 Range/Units 05:30 05:30 WBC 13.6 H (4.5-11.0) K/uL RBC 2.73 L (4.30-5.90) M/uL Hgb 8.6 L (12.0-15.0) g/dL Hct 27.2 L (40.0-54.0) % MCV 100 H (80-98) fL MCH 32 H (27-31) pg MCHC 32 (32-36) % Plt Count 331 (150-400) K/uL Neut % (Auto) 80 H (36-66) % Lymph % (Auto) 9 L (24-44) % Sherman % (Auto) 8 H (2-6) % Eos % (Auto) 3 (2-4) % Baso % (Auto) 0 (0-1) % Sodium 145 (140-148) mmol/L Potassium 4.2 (3.6-5.2) mmol/L Chloride 113 H (100-108) mmol/L Carbon Dioxide 22 (21-32) mmol/L Anion Gap 14.2 H (5.0-14.0) mmol/L BUN 29 H (7-18) mg/dL Creatinine 1.7 H (0.8-1.3) mg/dL Est Cr Clr Drug Dosing 22.16 mL/min Estimated GFR (MDRD) 38 L (>60) Glucose 92 (74-106) mg/dL Calcium 8.3 L (8.5-10.1) mg/dL JACKLYN Results - Last 24 hrs: Microbiology 08/09/19 21:45 Aerobic Blood Culture - Preliminary Blood - Venous - Iv Start NO GROWTH AFTER 3 DAYS Anaerobic Blood Culture - Preliminary NO GROWTH AFTER 3 DAYS 08/09/19 21:35 Aerobic Blood Culture - Preliminary Blood - Venous - Iv Start NO GROWTH AFTER 3 DAYS Anaerobic Blood Culture - Preliminary NO GROWTH AFTER 3 DAYS Med Orders - Current: Current Medications Acetaminophen (Tylenol) 650 mg RECTAL Q4H PRN PRN Reason: Mild pain/fever Last Admin: 08/10/19 03:01 Dose: 650 mg Acetaminophen (Tylenol) 650 mg PO TID MARSHA Last Admin: 10/31/19 08:08 Dose: 650 mg Albuterol (Proventil Neb Soln) 2.5 mg NEB Q4H PRN PRN Reason: Shortness Of Breath/wheezing Carbidopa/Levodopa (Sinemet 25-100 Mg) 1 tab PO QID [facility] Last Admin: 08/13/19 09:57 Dose: 1 tab Ciprofloxacin (Ciprofloxacin Hcl) 500 mg PO Q18H [facility] Last Admin: 08/13/19 09:57 Dose: 500 mg Dimethicone/Zinc Oxide (Rash Relief-Zinc Oxide Morning Sun) 0 gm TOP ASDIRECTED PRN PRN Reason: Rash Last Admin: 08/10/19 03:05 Dose: 1 applic Ferrous Sulfate (Ferrous Sulfate) 325 mg PO DAILY@0800 [facility] Last Admin: 08/13/19 08:08 Dose: 325 mg Ceftriaxone Sodium 1 gm/ (Sodium Chloride) 50 mls @ 100 mls/hr IV Q24H [facility] Last Admin: 08/12/19 20:02 Dose: 100 mls/hr Lactobacillus Rhamnosus (Culturelle) 2 cap PO BID [facility] Last Admin: 08/13/19 09:57 Dose: 2 cap Ondansetron HCl (Zofran Odt) 4 mg PO Q6H PRN PRN Reason: Nausea able to take PO Pantoprazole Sodium (Protonix) 40 mg PO ACBREAKFAST [facility] Last Admin: 08/13/19 08:08 Dose: 40 mg Vancomycin HCl (Vancocin 250 Mg/5 Ml Soln) 125 mg PO Q6H [facility] Last Admin: 08/13/19 11:23 Dose: 125 mg Discontinued Medications Ciprofloxacin (Ciprofloxacin Hcl) 500 mg PO BID [facility] Sodium Chloride (Normal Saline) 1,000 mls @ 999 mls/hr IV .BOLUS ONE Stop: 08/09/19 22:32 Last Admin: 08/09/19 21:52 Dose: 999 mls/hr Sodium Chloride (Normal Saline) 80 mls @ 3.5 mls/sec IV ONETIME ONE Stop: 08/09/19 21:54 Last Admin: 08/10/19 00:23 Dose: Not Given Ceftriaxone Sodium 1 gm/ (Sodium Chloride) 50 mls @ 100 mls/hr IV ONETIME ONE Stop: 08/09/19 22:28 Last Admin: 08/09/19 22:13 Dose: 100 mls/hr Sodium Chloride (Normal Saline) 1,000 mls @ 80 mls/hr IV ASDIRECTED [facility] Last Admin: 08/11/19 01:40 Dose: 80 mls/hr Influenza Virus Vaccine (Fluzone High-Dose 2019-20 Syringe) 180 mcg IM .ONCE ONE Stop: 08/12/19 10:01 Last Admin: 08/12/19 10:21 Dose: 180 mcg Iopamidol (Isovue-300 (61%)) 135 ml IV . DIRECTED [facility] Pantoprazole Sodium (Protonix Iv) 40 mg IVPUSH DAILY [facility] Last Admin: 08/11/19 09:17 Dose: 40 mg Sodium Chloride (Saline Flush) 10 ml FLUSH ASDIRECTED PRN PRN Reason: Keep Vein Open Last Admin: 08/09/19 21:52 Dose: 10 ml Sodium Chloride (Saline Flush) 10 ml FLUSH ONETIME ONE Stop: 08/09/19 21:54 Last Admin: 08/10/19 03:30 Dose: Not Given Sterile Water (Sterile Water For Injection) Confirm Administered Dose 20 ml .ROUTE .STK-MED ONE Stop: 08/11/19 00:45 Last Admin: 08/11/19 00:55 Dose: 20 ml Vancomycin HCl (Vancomycin) Confirm Administered Dose 1 gm .ROUTE .STK-MED ONE Stop: 08/11/19 00:40 Last Admin: 08/11/19 00:54 Dose: 1 gm - Exam General: Reports: Alert, Cooperative, No Acute Distress. Denies: Oriented Lungs: Reports: Normal Respiratory Effort Cardiovascular: Reports: Regular Rate, Regular Rhythm GI/Abdominal Exam: Soft, Non-Tender, No Organomegaly, No Distention Extremities: Non-Tender, No Pedal Edema
== END 2019-08-13 13:15 | disposition home or self-care (01) | DRG 699 ==
LOC: JP.ED 21:06 → JP.MS 22:44
PROVIDERS: ADMIT Internal Medicine; ATTEND Hospitalist
DX: T83.511A Infection and inflammatory reaction due to indwelling urethral catheter, initial encounter (principal); D72.829 Elevated white blood cell count, unspecified; N18.4 Chronic kidney disease, stage 4 (severe); A04.71 Enterocolitis due to Clostridium difficile, recurrent; N39.0 Urinary tract infection, site not specified; G20 Parkinson's disease; F02.80 Dementia in other diseases classified elsewhere, unspecified severity, without behavioral disturbance, psychotic disturbance, mood disturbance, and anxiety; H54.7 Unspecified visual loss; E78.00 Pure hypercholesterolemia, unspecified; G89.29 Other chronic pain; K59.09 Other constipation; M54.9 Dorsalgia, unspecified; Z96.649 Presence of unspecified artificial hip joint; R44.1 Visual hallucinations; R45.1 Restlessness and agitation; Z66 Do not resuscitate; B96.5 Pseudomonas (aeruginosa) (mallei) (pseudomallei) as the cause of diseases classified elsewhere; Z96.0 Presence of urogenital implants; Z23 Encounter for immunization; Z79.899 Other long term (current) drug therapy; Z86.010 Personal history of colon polyps; Z90.89 Acquired absence of other organs; Z98.49 Cataract extraction status, unspecified eye
CPT/HCPCS: 36415; 71045; 80048; 81001; 83605; 85025; 87040 ×2; 87086; 87088; 87186; 96365; 99285; J0696; J7030; J7050; 82272; 86140; 87493; 90662; 97110-GP; 97116-GP; 97161-GP; A9270-GY; C9113; G0008; J3370

== ENCOUNTER 2019-10-11 11:12 | Inpatient (IN) | payer MEDICARE, BC ==
--- NOTE | 2019-10-11 12:12 | EDM.PDOC ---
ED HPI GENERAL MEDICAL PROBLEM - General Chief Complaint: General Stated Complaint: FALL VIA [place]TH Time Seen by Provider: 10/11/19 11:50 Source of Information: Reports: EMS, Old Records, RN History Limitations: Reports: Other (dementia patient) - History of Present Illness INITIAL COMMENTS - FREE TEXT/NARRATIVE: 89 yo male resident of a local assisted living facility fell, unwitnessed, and was sent in to the ER for evaluation after this fall. He has an indwelling swartz and is currently on an extended course of po vancomycin for a difficult to tx UTI. He did apparently hit his forehead when he fell, no LOC was reported and he was awake when found. He has severe dementia. He is not on any anticoagulants. Onset: Today Onset Date: 10/11/19 Duration: Hour(s):, Constant Location: Reports: Face (forehead contusion. ) Quality: Reports: Dull Severity: Mild Improves with: Reports: Other (time) Worsens with: Reports: None Context: Reports: Trauma Associated Symptoms: Reports: No Other Symptoms Treatments [employer]MENT [employer]PER[employer]OR: Reports: Other (see below) (none) - Related Data Allergies Allergy/AdvReac Type Severity Reaction Status Date / Time No Known Allergies Allergy Verified 08/09/19 22:16 Home Meds: Home Meds Simvastatin 20 mg PO BEDTIME 02/02/16 [History] Ferrous Sulfate 325 mg PO DAILY 06/10/19 [History] Acetaminophen [Pain Reliever] 650 mg PO TID 07/07/19 [History] Carbidopa/Levodopa [Carbidopa-Levodopa 25-100] 1 tab PO QID #120 tablet [Rx] Lactobacillus Rhamnosus GG [Culturelle] 2 cap PO BID #60 cap 07/10/19 [Rx] Vancomycin [Vancocin 250 MG/5 ML Soln] 125 mg PO QID #150 ml 08/13/19 [Rx] busPIRone [Buspar] 15 mg PO BID 10/11/19 [History] Past Medical History HEENT History: Reports: Cataract, Impaired Vision, Other (See Below) Other HEENT History: "bulge on the retina" Cardiovascular History: Reports: High Cholesterol, Syncope Gastrointestinal History: Reports: Chronic Constipation, Colon Polyp Genitourinary History: Reports: Renal Disease Other Genitourinary History: "stage 4 kidney disease" Musculoskeletal History: Reports: Back Pain, Chronic Neurological History: Reports: Vertigo, Other (See Below) Psychiatric History: Reports: Dementia - Infectious Disease History Infectious Disease History: Reports: C-Difficile, Chicken Pox - Past Surgical History Head Surgeries/Procedures: Reports: None HEENT Surgical History: Reports: Cataract Surgery, Tonsillectomy Cardiovascular Surgical History: Reports: None GI Surgical History: Reports: Colonoscopy Male Surgical History: Reports: Suprapubic Catheter Placement, Ureteral Stent Neurological Surgical History: Reports: None Musculoskeletal Surgical History: Reports: Hip Replacement Dermatological Surgical History: Reports: None Social & Family History - Family History Family Medical History: Noncontributory Cardiac: Reports: Bypass, CAD Musculoskeletal: Reports: Other (See Below) Other Musculoskeletal Family History: "hump back" Neurological: Reports: Alzheimers Disease, Parkinson's Oncologic: Reports: Colon, Pancreatic - Tobacco Use Smoking Status *Q: Unknown Ever Smoked Second Hand Smoke Exposure: No - Caffeine Use Caffeine Use: Reports: Coffee - Recreational Drug Use Recreational Drug Use: No - Living Situation & Occupation Living situation: Reports: ( reports was at [facility] from 07-10-2019 to 07-30-2019, transferred to Memory Care at [facility] Occupation: Disabled ED ROS GENERAL - Review of Systems Review Of Systems: Unable To Obtain (due to his dementia) Reason Not Obtained: dementia ED EXAM, GENERAL - Physical Exam Exam: See Below Exam Limited By: No Limitations General Appearance: Alert, WD/WN, No Apparent Distress Eye Exam: Bilateral Eye: Normal Inspection, PERRL Ears: Normal External Exam, Normal Canal, Hearing Grossly Normal, Normal TMs Ear Exam: Bilateral Ear: Auricle Normal, Canal Normal, TM normal Nose: Normal Inspection, No Blood Throat/Mouth: Normal Inspection, Normal Lips, Normal Oropharynx, Normal Voice, No Airway Compromise, Other (poor dentition) Head: Other (forehead contusion with intact skin noted on L side. ) Neck: Normal Inspection, Non-Tender Respiratory/Chest: No Respiratory Distress, Lungs Clear, Normal Breath Sounds, No Accessory Muscle Use Cardiovascular: Regular Rate, Rhythm, No Edema GI/Abdominal: Normal Bowel Sounds, Soft, Non-Tender, No Distention (Male) Exam: Other (indwelling swartz noted, functioning properly.) Back Exam: Normal Inspection Extremities: Normal Inspection, Normal Range of Motion, Non-Tender, No Pedal Edema Neurological: Alert, CN II-XII Intact, No Motor/Sensory Deficits, Disoriented ( dementia) Psychiatric: Normal Affect, Normal Mood Skin Exam: Warm, Dry, Intact, Normal Color (associated with forehead contusion. ), No Rash, Ecchymosis. No: Erythema, Wound/Incision Course - Vital Signs Last Recorded V/S: Last Vital Signs Temp 37.6 C 10/11/19 11:18 Pulse 101 H 10/11/19 11:18 Resp 24 H 10/11/19 11:18 BP 107/50 L 10/11/19 11:18 Pulse Ox 95 10/11/19 11:18 Departure - Departure Time of Disposition: 12:24 Disposition: Home, Self-Care 01 Clinical Impression: Fall in elderly patient Forehead contusion Qualifiers: Encounter type: initial encounter Qualified Code(s): S00.83XA - Contusion of other part of head, initial encounter - Discharge Information *PRESCRIPTION DRUG MONITORING PROGRAM REVIEWED*: No *COPY OF PRESCRIPTION DRUG MONITORING REPORT IN PATIENT JON: No Referrals: Jose Luis Mann MD [Primary Care Provider] - Forms: ED Department Discharge Additional Instructions: Continue current treatments/medications. Recheck as needed. Sepsis Event Note - Evaluation Sepsis Screening Result: No Definite Risk - Focused Exam Vital Signs: Vital Signs Temp Pulse Resp BP Pulse Ox 10/11/19 11:18 37.6 C 101 H 24 H 107/50 L 95 10/11/19 11:17 37.6 C 101 H 24 H 107/50 L 95 Date Exam was Performed: 10/11/19 Time Exam was Performed: 12:23
[2019-10-11] MEDS ORDERED: Lactated Ringers 1,000 ML IV ONE (13:39)
--- NOTE | 2019-10-11 14:17 | CRLCR ---
INDICATION: Elevated white blood cell count. TECHNIQUE: Single portable AP image. COMPARISON: None. FINDINGS: Patient rotated. Lungs low in volume, clear. No pleural effusion. Heart, mediastinum and pulmonary vessels within normal limits, allowing for the shallow inspiration. No significant osseous abnormality. IMPRESSION: Negative, allowing for low lung volumes and patient rotation. Dictated by Adin Curran MD @ Oct 11 2019 2:15PM Signed by Dr. Adin Curran @ Oct 11 2019 2:16PM
[2019-10-11] MEDS ORDERED: cefTRIAXone 1 GM in Sodium Chloride 0.9% 50 ML IV SCH (14:45)
--- NOTE | 2019-10-11 14:47 | PCM.HP.2 ---
H&P History of Present Illness - General Date of Service: 10/11/19 Admit Problem/Dx: Admission Diagnosis/Problem Admission Diagnosis/Problem UTI, Urinary tract infectious disease Source of Information: Old Records, Provider, RN Notes Reviewed. No: Patient History Limitations: Reports: Altered Mental Status (Dementia) - History of Present Illness Initial Comments - Free Text/Narative: Mr. Bailey is an 89-year-old gentleman who was admitted through the emergency department with weakness, fever, diarrhea, secondary to underlying urinary tract infection and recurrent C. difficile colitis. Mr. bailey has significant dementia and is unable to provide a meaningful history concerning recent symptoms, events, or review of systems. History obtained from staff at the assisted living facility report that he has developed diarrhea with fever and weakness. He had an unwitnessed fall today and was brought into the emergency department for further evaluation. On assessment was noted to have ecchymosis of the left forehead. Urinalysis shows evidence of infection and he is also found to have significant leukocytosis. He has a history of recurrent C. difficile colitis and currently is on a suppressive course of antibiotic therapy with vancomycin 125 mg oral every other day. He has not had significant diarrhea while in the emergency department. - Related Data Allergies/Adverse Reactions: Allergies Allergy/AdvReac Type Severity Reaction Status Date / Time No Known Allergies Allergy Verified 08/09/19 22:16 Home Medications: Home Meds Simvastatin 20 mg PO BEDTIME 02/02/16 [History] Ferrous Sulfate 325 mg PO DAILY 06/10/19 [History] Acetaminophen [Pain Reliever] 650 mg PO TID 07/07/19 [History] Carbidopa/Levodopa [Carbidopa-Levodopa 25-100] 1 tab PO QID #120 tablet [Rx] Lactobacillus Rhamnosus GG [Culturelle] 2 cap PO BID #60 cap 07/10/19 [Rx] Vancomycin [Vancocin 250 MG/5 ML Soln] 125 mg PO QID #150 ml 08/13/19 [Rx] busPIRone [Buspar] 15 mg PO BID 10/11/19 [History] Past Medical History HEENT History: Reports: Cataract, Impaired Vision, Other (See Below) Other HEENT History: "bulge on the retina" Cardiovascular History: Reports: High Cholesterol, Syncope Gastrointestinal History: Reports: Chronic Constipation, Colon Polyp Genitourinary History: Reports: Renal Disease Other Genitourinary History: "stage 4 kidney disease" Musculoskeletal History: Reports: Back Pain, Chronic Neurological History: Reports: Vertigo, Other (See Below) Psychiatric History: Reports: Dementia - Infectious Disease History Infectious Disease History: Reports: C-Difficile, Chicken Pox - Past Surgical History Head Surgeries/Procedures: Reports: None HEENT Surgical History: Reports: Cataract Surgery, Tonsillectomy Cardiovascular Surgical History: Reports: None GI Surgical History: Reports: Colonoscopy Male Surgical History: Reports: Suprapubic Catheter Placement, Ureteral Stent Neurological Surgical History: Reports: None Musculoskeletal Surgical History: Reports: Hip Replacement Dermatological Surgical History: Reports: None Social & Family History - Family History Family Medical History: Noncontributory Cardiac: Reports: Bypass, CAD Musculoskeletal: Reports: Other (See Below) Other Musculoskeletal Family History: "hump back" Neurological: Reports: Alzheimers Disease, Parkinson's Oncologic: Reports: Colon, Pancreatic - Tobacco Use Smoking Status *Q: Unknown Ever Smoked Second Hand Smoke Exposure: No - Caffeine Use Caffeine Use: Reports: Coffee - Recreational Drug Use Recreational Drug Use: No - Living Situation & Occupation Living situation: Reports: ( reports was at [facility] from 07-10-2019 to 07-30-2019, transferred to Memory Care at [facility].) Occupation: Disabled H&P Review of Systems - Review of Systems: Review Of Systems: See Below General: Reports: ROS unobtainable (Dementia) Exam - Exam Exam: See Below - Vital Signs Vital Signs: Last Vital Signs Temp 99.7 F 10/11/19 13:26 Pulse 107 H 10/11/19 13:57 Resp 24 H 10/11/19 13:57 BP 109/63 10/11/19 13:57 Pulse Ox 93 L 10/11/19 13:57 Weight: 115 lb - Exam General: Alert, Cooperative, Mild Distress. No: Oriented HEENT: Conjunctiva Clear, Hearing Intact, Normal Nasal Septum, Posterior Pharynx Clear, Pupils Equal. No: Mucosa Moist & [place] Neck: Supple, Trachea Midline, +2 Carotid Pulse wo Bruit Lungs: Clear to Auscultation, Normal Respiratory Effort Cardiovascular: Regular Rate, Regular Rhythm, Normal S1, Normal S2. No: Systolic Murmur, Diastolic Murmur GI/Abdominal Exam: Soft, Non-Tender, No Organomegaly, No Distention Back Exam: Normal Inspection, Full Range of Motion Extremities: Non-Tender, No Pedal Edema Skin: Warm, Dry, Intact - Patient Data Lab Results Last 24 hrs: Laboratory Results - last 24 hr 10/11/19 10/11/19 10/11/19 Range/Units 13:10 13:10 13:10 WBC 25.1 H (4.5-11.0) K/uL RBC 3.54 L (4.30-5.90) M/uL Hgb 11.1 L D (12.0-15.0) g/dL Hct 35.8 L (40.0-54.0) % MCV 101 H (80-98) fL MCH 31 (27-31) pg MCHC 31 L (32-36) % Plt Count 246 (150-400) K/uL Sodium 137 L (140-148) mmol/L Potassium 4.6 (3.6-5.2) mmol/L Chloride 103 (100-108) mmol/L Carbon Dioxide 21 (21-32) mmol/L Anion Gap 17.6 H (5.0-14.0) mmol/L BUN 38 H (7-18) mg/dL Creatinine 2.0 H (0.8-1.3) mg/dL Est Cr Clr Drug Dosing 18.84 mL/min Estimated GFR (MDRD) 32 L (>60) Glucose 120 H (74-106) mg/dL Lactic Acid 1.0 (0.4-2.0) mmol/L Calcium 8.9 (8.5-10.1) mg/dL Urine Color (YELLOW) Urine Appearance (CLEAR) Urine pH (5.0-8.0) Ur Specific [place] (1.008-1.030) Urine Protein (NEGATIVE) mg/dL Urine Glucose (UA) (NEGATIVE) mg/dL Urine Ketones (NEGATIVE) mg/dL Urine Occult Blood (NEGATIVE) Urine Nitrite (NEGATIVE) Urine Bilirubin (NEGATIVE) Urine Urobilinogen (0.2-1.0) EU/dL Ur Leukocyte Esterase (NEGATIVE) Urine RBC (0-5) Urine WBC (0-5) Ur Epithelial Cells Amorphous Sediment Urine Bacteria Urine Mucus 10/11/19 Range/Units 13:24 WBC (4.5-11.0) K/uL RBC (4.30-5.90) M/uL Hgb (12.0-15.0) g/dL Hct (40.0-54.0) % MCV (80-98) fL MCH (27-31) pg MCHC (32-36) % Plt Count (150-400) K/uL Sodium (140-148) mmol/L Potassium (3.6-5.2) mmol/L Chloride (100-108) mmol/L Carbon Dioxide (21-32) mmol/L Anion Gap (5.0-14.0) mmol/L BUN (7-18) mg/dL Creatinine (0.8-1.3) mg/dL Est Cr Clr Drug Dosing mL/min Estimated GFR (MDRD) (>60) Glucose (74-106) mg/dL Lactic Acid (0.4-2.0) mmol/L Calcium (8.5-10.1) mg/dL Urine Color Yellow (YELLOW) Urine Appearance Cloudy A (CLEAR) Urine pH 6.5 (5.0-8.0) Ur Specific [place] 1.020 (1.008-1.030) Urine Protein 30 H (NEGATIVE) mg/dL Urine Glucose (UA) Negative (NEGATIVE) mg/dL Urine Ketones Negative (NEGATIVE) mg/dL Urine Occult Blood Moderate H (NEGATIVE) Urine Nitrite Positive H (NEGATIVE) Urine Bilirubin Negative (NEGATIVE) Urine Urobilinogen 0.2 (0.2-1.0) EU/dL Ur Leukocyte Esterase Moderate H (NEGATIVE) Urine RBC 30-40 H (0-5) Urine WBC 5-10 H (0-5) Ur Epithelial Cells Rare Amorphous Sediment Few Urine Bacteria Many Urine Mucus Rare Result Diagrams: 10/11/19 13:10 10/11/19 13:10 Sepsis Event Note - Evaluation Sepsis Screening Result: No Definite Risk - Focused Exam Vital Signs: Vital Signs Temp Pulse Resp BP Pulse Ox 10/11/19 13:57 107 H 24 H 109/63 93 L 10/11/19 13:26 99.7 F 102 H 21 H 95/38 L 96 10/11/19 11:18 99.6 F 101 H 24 H 107/50 L 95 10/11/19 11:17 99.6 F 101 H 24 H 107/50 L 95 Date Exam was Performed: 10/11/19 Time Exam was Performed: 15:06 *Q Meaningful Use (ADM) - VTE Risk Assess *Q Each Risk Factor Represents 1 Point: None Total Score 1 Point Risk Factors: 0 Each Risk Factor Represents 2 Points: None Total Score 2 Point Risk Factors: 0 Each Risk Factor Represents 3 Points: Age 75 Years or Greater Total Score 3 Point Risk Factors: 3 Each Risk Factor Represents 5 Points: None Total Score 5 Point Risk Factors: 0 Venous Thromboembolism Risk Factor Score *Q: 3 Problem List Initiated/Reviewed/Updated: Yes Orders Last 24hrs: Active Orders 24 hr Category Date Time Status Patient Status Manage Transfer [TRANSFER] Routine ADT 10/11/19 14:41 Ordered CULTURE BLOOD [BC] Stat Lab 10/11/19 13:55 Received CULTURE URINE [RM] Stat Lab 10/11/19 13:30 Received cefTRIAXone [Rocephin] 1 gm Med 10/11/19 14:45 Active Sodium Chloride 0.9% [Normal Saline] 50 ml IV Q24H Resuscitation Status Routine Resus Stat 10/11/19 14:43 Ordered Medication Orders Ceftriaxone Sodium 1 gm/ (Sodium Chloride) 50 mls @ 100 mls/hr IV Q24H [facility] Assessment/Plan Comment:: ASSESSMENT AND PLAN Complicated UTI with suprapubic cath.-Evidence of urinary tract infection noted on urinalysis -IV Normal Saline -Antibiotic coverage with IV Ceftriaxone 1 gram every 24 hours. 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 difficile result Maintenance issues - - DVT prophylaxis -Lovenox 30 mg subcu daily - GI prophylaxis -not indicated - Nutrition - regular - suprapubic catheter for the past 3 years CODE STATUS - DNR-DNI Admission justification - This patient will be admitted for inpatient services and is medically appropriate meeting medical necessity for inpatient admission as outlined in my documentation. I reasonably expect the patient will require inpatient services that span a period time over 2 midnights. I reasonably expect this patient to be discharged or transferred within 96 hours [facility] Disposition - anticipate discharge [facility] after the hospital stay Primary care physician - Dr Mann - Mortality Measure Prognosis:: Good
[2019-10-11] MEDS ORDERED: Acetaminophen 325 MG Tab PO PRN (15:15)
[2019-10-11] MEDS ORDERED: Sodium Chloride 0.9% 10 ML Syringe FLUSH PRN (15:15)
[2019-10-11] MEDS ORDERED: Ondansetron 4 MG/2 ML SDV IV PRN (15:15)
[2019-10-11] MEDS ORDERED: Polyethylene Glycol 3350 Powder 17 GM Packet PO PRN (15:15)
[2019-10-11] MEDS: Sodium Chloride 0.9% 1,000 ML IV SCH ×2 (15:33→23:48)
[2019-10-11] MEDS: Enoxaparin 30 MG/0.3 ML Syringe SUBCUT SCH (15:38)
[2019-10-11] MEDS: Vancomycin 250 MG/5 ML ML Oral Solution PO SCH ×2 (15:38→21:38)
[2019-10-11] MEDS: Carbidopa/Levodopa 25-100 MG Tab PO SCH ×2 (15:39→21:39)
[2019-10-11] MEDS: Nystatin Topical Powder 15 GM Bottle TOP SCH ×2 (15:40→21:39)
[2019-10-11] MEDS ORDERED: Nystatin Topical Powder 15 GM Bottle TOP SCH (16:00)
[2019-10-11] MEDS: Lactobacillus Rhamnosus GG (Probiotic) Cap PO SCH (21:39)
[2019-10-11] MEDS: Simvastatin 20 MG Tab PO SCH (21:39)
[2019-10-11] MEDS: busPIRone 5 MG Tab PO SCH (21:40)
[2019-10-12] MEDS: Vancomycin 250 MG/5 ML ML Oral Solution PO SCH ×5 (05:44→22:56)
[2019-10-12] MEDS: Nystatin Topical Powder 15 GM Bottle TOP SCH ×5 (05:44→22:56)
[2019-10-12] MEDS: Carbidopa/Levodopa 25-100 MG Tab PO SCH ×5 (05:44→22:56)
[2019-10-12] MEDS: Sodium Chloride 0.9% 1,000 ML IV SCH (07:43)
[2019-10-12] MEDS: Lactobacillus Rhamnosus GG (Probiotic) Cap PO SCH ×2 (08:38→20:47)
[2019-10-12] MEDS: Ferrous Sulfate 325 MG Tab PO SCH (08:38)
[2019-10-12] MEDS: busPIRone 5 MG Tab PO SCH ×2 (08:42→20:48)
[2019-10-12] MEDS: Magnesium Sulfate/Water 2 GM in Premix Bag 1 BAG IV SCH ×2 (08:42→14:53)
[2019-10-12] MEDS: Magnesium Oxide 400 MG Tab PO SCH ×2 (11:19→20:48)
--- NOTE | 2019-10-12 13:50 | PCM.PN ---
- General Info Date of Service: 10/12/19 Subjective Update: Mr. Cheatham has improved since admission, more alert and interactive. White blood cell count has improved but remains modestly elevated. No significant temperature elevations. He is unable to provide a meaningful history concerning the recent symptoms or events secondary to underlying dementia. - Patient Data Vitals - Most Recent: Last Vital Signs Temp 97.0 F 10/12/19 10:45 Pulse 70 10/12/19 10:45 Resp 18 10/12/19 10:45 BP 107/52 L 10/12/19 10:45 Pulse Ox 100 10/12/19 10:45 Weight - Most Recent: 115 lb I&O - Last 24 Hours: Intake & Output 10/11/19 10/12/19 10/12/19 22:59 06:59 14:59 Intake Total 689 1334 790 Output Total 150 550 Balance 539 784 790 Lab Results Last 24 Hours: Laboratory Results - last 24 hr 10/12/19 10/12/19 Range/Units 06:07 06:07 WBC 16.7 H (4.5-11.0) K/uL RBC 2.98 L (4.30-5.90) M/uL Hgb 9.5 L (12.0-15.0) g/dL Hct 30.4 L (40.0-54.0) % MCV 102 H (80-98) fL MCH 32 H (27-31) pg MCHC 31 L (32-36) % Plt Count 186 (150-400) K/uL Neut % (Auto) 89 H (36-66) % Lymph % (Auto) 6 L (24-44) % [place] % (Auto) 5 (2-6) % Eos % (Auto) 0 L (2-4) % Baso % (Auto) 0 (0-1) % Sodium 138 L (140-148) mmol/L Potassium 3.7 (3.6-5.2) mmol/L Chloride 106 (100-108) mmol/L Carbon Dioxide 21 (21-32) mmol/L Anion Gap 14.7 H (5.0-14.0) mmol/L BUN 32 H (7-18) mg/dL Creatinine 1.6 H (0.8-1.3) mg/dL Est Cr Clr Drug Dosing 23.55 mL/min Estimated GFR (MDRD) 41 L (>60) Glucose 111 H (74-106) mg/dL Calcium 8.2 L (8.5-10.1) mg/dL Magnesium 1.6 L (1.8-2.4) mg/dL [place] Results Last 24 Hours: Microbiology 10/12/19 02:51 Clostridioides difficile Toxin Assay - Final Stool / Feces Clostridioides difficile (PCR) - Final 10/11/19 13:30 Urine Culture - Preliminary Urine, [place] Cath (Indwelling) Med Orders - Current: Current Medications Acetaminophen (Tylenol) 650 mg PO Q4H PRN PRN Reason: Pain (Mild 1-3)/fever Buspirone HCl (Buspar) 15 mg PO BID [facility] Last Admin: 10/12/19 08:42 Dose: 15 mg Carbidopa/Levodopa (Sinemet 25-100 Mg) 1 tab PO QID [facility] Last Admin: 10/12/19 11:07 Dose: 1 tab Enoxaparin Sodium (Lovenox) 30 mg SUBCUT Q24H [facility] Last Admin: 10/11/19 15:38 Dose: 30 mg Ferrous Sulfate (Ferrous Sulfate) 325 mg PO DAILY@0800 [facility] Last Admin: 10/12/19 08:38 Dose: 325 mg Ceftriaxone Sodium 1 gm/ (Sodium Chloride) 50 mls @ 100 mls/hr IV Q24H [facility] Magnesium Sulfate 2 gm/ Premix 50 mls @ 25 mls/hr IV Q6H [facility] Stop: 10/12/19 16:29 Last Admin: 10/12/19 08:42 Dose: 25 mls/hr Lactobacillus Rhamnosus (Culturelle) 2 cap PO BID [facility] Last Admin: 10/12/19 08:38 Dose: 2 cap Magnesium Oxide (Magnesium Oxide) 400 mg PO BID [facility] Last Admin: 10/12/19 11:19 Dose: 400 mg Nystatin (Nystop) 0 gm TOP QID [facility] Last Admin: 10/12/19 11:06 Dose: 1 applic Ondansetron HCl (Zofran) 4 mg IV Q4H PRN PRN Reason: Nausea/Vomiting Polyethylene Glycol (Miralax) 17 gm PO DAILY PRN PRN Reason: Constipation Simvastatin (Zocor) 20 mg PO BEDTIME [facility] Last Admin: 10/11/19 21:39 Dose: 20 mg Sodium Chloride (Saline Flush) 10 ml FLUSH ASDIRECTED PRN PRN Reason: Keep Vein Open Vancomycin HCl (Vancocin 250 Mg/5 Ml Soln) 125 mg PO QID [facility] Last Admin: 10/12/19 11:07 Dose: 125 mg Discontinued Medications Lactated Ringer's (Ringers, Lactated) 1,000 mls @ 1,000 mls/hr IV BOLUS ONE Stop: 10/11/19 14:38 Last Admin: 10/11/19 13:45 Dose: 1,000 mls/hr Ceftriaxone Sodium 1 gm/ (Sodium Chloride) 50 mls @ 100 mls/hr IV Q24H [facility] Stop: 10/11/19 15:45 Last Admin: 10/11/19 14:51 Dose: 100 mls/hr Sodium Chloride (Normal Saline) 1,000 mls @ 125 mls/hr IV ASDIRECTED [facility] Last Admin: 10/12/19 07:43 Dose: 125 mls/hr Nystatin (Nystop) 0 gm TOP QID [facility] - Exam Quality Assessment: DVT Prophylaxis General: Alert, Cooperative, No Acute Distress. No: Oriented Lungs: Clear to Auscultation, Normal Respiratory Effort Cardiovascular: Regular Rate, Regular Rhythm, No Murmurs GI/Abdominal Exam: Soft, Non-Tender, No Organomegaly, No Distention Extremities: Non-Tender, No Pedal Edema Sepsis Event Note - Evaluation Sepsis Screening Result: No Definite Risk - Focused Exam Vital Signs: Vital Signs Temp Pulse Resp BP Pulse Ox 10/12/19 10:45 97.0 F 70 18 107/52 L 100 10/12/19 07:00 98.4 F 75 18 125/59 L 96 10/12/19 02:48 99.0 F 90 16 102/77 98 Date Exam was Performed: 10/12/19 Time Exam was Performed: 13:47 - Problem List Review Problem List Initiated/Reviewed/Updated: Yes - My Orders Last 24 Hours: My Active Orders 10/11/19 14:43 Resuscitation Status Routine 10/11/19 15:15 Patient Status [ADT] Routine Ambulate [RC] QID Height and Weight [RC] DAILY Intake and Output [RC] QSHIFT Notify Provider Vital Signs [RC] ASDIRECTED Oxygen Therapy [RC] .PRN Peripheral IV Care [RC] Q12H Up With Assistance [RC] ASDIRECTED Up to Chair [RC] QID Vital Signs [RC] Q4H Acetaminophen [Tylenol] 650 mg PO Q4H PRN Ondansetron [Zofran] 4 mg IV Q4H PRN Polyethylene Glycol 3350 [MiraLAX] 17 gm PO DAILY PRN Sodium Chloride 0.9% [Saline Flush] 10 ml FLUSH ASDIRECTED PRN Peripheral IV Insertion Adult [OM.PC] Routine 10/11/19 16:00 Carbidopa/Levodopa [Sinemet 25-100 mg] 1 tab PO QID Enoxaparin [Lovenox] 30 mg SUBCUT Q24H Nystatin [Nystop] 0 gm TOP QID Vancomycin [Vancocin 250 MG/5 ML Soln] 125 mg PO QID 10/11/19 21:00 Lactobacillus Rhamnosus GG [Culturelle] 2 cap PO BID Simvastatin [Zocor] 20 mg PO BEDTIME busPIRone [Buspar] 15 mg PO BID 10/12/19 08:00 Ferrous Sulfate 325 mg PO DAILY@0800 10/12/19 08:30 Magnesium Sulfate/Water [Magnesium Sulfate in Water Premix] 2 gm Premix Bag 1 bag IV Q6H 10/12/19 09:00 Magnesium Oxide 400 mg PO BID 10/12/19 13:46 Convert IV to Saline Lock [OM.PC] Routine 10/12/19 14:00 cefTRIAXone [Rocephin] 1 gm Sodium Chloride 0.9% [Normal Saline] 50 ml IV Q24H 10/13/19 05:00 BASIC METABOLIC PANEL,BMP [CHEM] Timed CBC WITH AUTO DIFF [HEME] Timed - Plan Plan:: ASSESSMENT AND PLAN Complicated UTI with suprapubic cath.-Evidence of urinary tract infection noted on urinalysis -Saline lock IV -Antibiotic coverage with IV Ceftriaxone 1 gram every 24 hours. 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 Retesting for C. difficile was positive -vancomycin 125 mg every 6 hours, pending C. difficile result Maintenance issues - - DVT prophylaxis -Lovenox 30 mg subcu daily - GI prophylaxis -not indicated - Nutrition - regular - suprapubic catheter for the past 3 years CODE STATUS - DNR-DNI Admission justification - This patient will be admitted for inpatient services and is medically appropriate meeting medical necessity for inpatient admission as outlined in my documentation. I reasonably expect the patient will require inpatient services that span a period time over 2 midnights. I reasonably expect this patient to be discharged or transferred within 96 hours after admission to the [facility]. Disposition - anticipate discharge Long Term after the hospital stay Primary care physician - Dr Mann
[2019-10-12] MEDS: cefTRIAXone 1 GM in Sodium Chloride 0.9% 50 ML IV SCH (14:50)
[2019-10-12] MEDS: Enoxaparin 30 MG/0.3 ML Syringe SUBCUT SCH (17:18)
[2019-10-12] MEDS ORDERED: Melatonin 3 MG Tab PO PRN (17:45)
[2019-10-12] MEDS: Haloperidol 1 MG Tab PO PRN ×2 (18:01→20:48)
[2019-10-12] MEDS: Simvastatin 20 MG Tab PO SCH (20:47)
[2019-10-13] MEDS: Nystatin Topical Powder 15 GM Bottle TOP SCH ×3 (06:07→15:21)
[2019-10-13] MEDS: Carbidopa/Levodopa 25-100 MG Tab PO SCH ×2 (06:08→09:41)
[2019-10-13] MEDS: Vancomycin 250 MG/5 ML ML Oral Solution PO SCH ×3 (06:10→15:20)
[2019-10-13] MEDS: Lactobacillus Rhamnosus GG (Probiotic) Cap PO SCH (08:26)
[2019-10-13] MEDS: Magnesium Oxide 400 MG Tab PO SCH (08:26)
[2019-10-13] MEDS: Ferrous Sulfate 325 MG Tab PO SCH (08:26)
[2019-10-13] MEDS: busPIRone 5 MG Tab PO SCH (09:41)
[2019-10-13 12:26] VITALS: BP 157/74; PULSE 64
--- NOTE | 2019-10-13 14:11 | PCM.DCSUM1 ---
Discharge Summary - Hospital Course Brief History: Mr. Bailey is an 89-year-old gentleman who was admitted through the emergency department with decreased level of consciousness, fever, diarrhea, and weakness secondary to underlying urinary tract infection and recurrent C. difficile colitis. - Discharge Data Discharge Date: 10/13/19 Discharge Disposition: DC/Tfer to Hospice - Home 51 Condition: Poor - Referral to Home Health Primary Care Physician: Jose Luis Mann MD - Discharge Diagnosis/Problem(s) (1) UTI (urinary tract infection) SNOMED Code(s): 68152178 ICD Code: N39.0 - URINARY TRACT INFECTION, SITE NOT SPECIFIED Status: Acute Current Visit: Yes (2) Clostridioides difficile infection SNOMED Code(s): 767712385 ICD Code: A49.8 - OTHER BACTERIAL INFECTIONS OF UNSPECIFIED SITE Status: Acute Current Visit: Yes (3) Forehead contusion SNOMED Code(s): 287572295 ICD Code: S00.83XA - CONTUSION OF OTHER PART OF HEAD, INITIAL ENCOUNTER Status: Acute Current Visit: Yes Qualifiers: Encounter type: initial encounter Qualified Code(s): S00.83XA - Contusion of other part of head, initial encounter (4) CKD (chronic kidney disease), stage IV SNOMED Code(s): 904906439 ICD Code: N18.4 - CHRONIC KIDNEY DISEASE, STAGE 4 (SEVERE) Status: Chronic Priority: High Current Visit: No (5) Dementia associated with Parkinson's disease SNOMED Code(s): 063134744 ICD Code: G20 - PARKINSON'S DISEASE; F02.80 - DEMENTIA IN OTH DISEASES CLASSD ELSWHR W/O BEHAVRL DISTURB Status: Chronic Priority: High Current Visit: No - Patient Summary/Data Hospital Course: Mr. Bailey is an 89-year-old gentleman who was admitted through the emergency department with weakness, fever, diarrhea, secondary to underlying urinary tract infection and recurrent C. difficile colitis. Mr. bailey has significant dementia and is unable to provide a meaningful history concerning recent symptoms, events, or review of systems. History obtained from staff at the assisted living facility report that he has developed diarrhea with fever and weakness. He had an unwitnessed fall today and was brought into the emergency department for further evaluation. On assessment was noted to have ecchymosis of the left forehead. Urinalysis shows evidence of infection and he is also found to have significant leukocytosis. He has a history of recurrent C. difficile colitis and currently is on a suppressive course of antibiotic therapy with vancomycin 125 mg oral every other day. He has not had significant diarrhea while in the emergency department. On admission he was felt to have active urinary tract infection as well as recurrent C. difficile colitis despite recent suppressive therapy. Urine culture was obtained and he was started on ceftriaxone 1 g IV every 24 hours. Stool study for C. difficile was ordered and he was started on empiric therapy with vancomycin 125 mg 4 times a day. Stool for C. difficile did return positive and he was continued on the vancomycin during hospitalization. Gram-negative rods were found to be growing in the urine, final ID and sensitivities were pending at the time of discharge. He will be discharged home on an additional 3 days of oral antibiotic therapy with cephalexin 500 mg every 8 hours. Discussion was held with his during hospitalization concerning possible hospice admission. She would like to proceed with hospice care and feels that this is very consistent with the patient's previously expressed wishes. After discharge he will be seen by hospice for consult and probable admission. Activity will be as tolerated and he will resume his usual diet. He will remain on oral vancomycin 125 mg 4 times daily for an additional 2 weeks, would plan at that point to begin tapering dose of vancomycin again. We did discuss possible use of alternative antibiotic Fidaxamiacin, his declined use of this medication because of cost. - Patient Instructions Diet: Usual Diet as Tolerated Activity: As Tolerated Other/Special Instructions: Outpatient hospice consult and admission after discharge from the hospital. - Discharge Plan *PRESCRIPTION DRUG MONITORING PROGRAM REVIEWED*: Not Applicable *COPY OF PRESCRIPTION DRUG MONITORING REPORT IN PATIENT JON: Not Applicable Prescriptions/Med Rec: Cephalexin [Keflex] 500 mg PO Q8H #9 capsule Melatonin 9 mg PO BEDTIME PRN #90 tablet PRN Reason: Sleep Vancomycin [Vancocin 250 MG/5 ML Soln] 125 mg PO QID #140 ml Home Medications: Home Meds Acetaminophen [Pain Reliever] 650 mg PO TID 07/07/19 [History] Carbidopa/Levodopa [Carbidopa-Levodopa 25-100] 1 tab PO QID #120 tablet [Rx] Lactobacillus Rhamnosus GG [Culturelle] 2 cap PO BID #60 cap 07/10/19 [Rx] busPIRone [Buspar] 15 mg PO BID 10/11/19 [History] Cephalexin [Keflex] 500 mg PO Q8H #9 capsule 10/13/19 [Rx] Melatonin 9 mg PO BEDTIME PRN #90 tablet 10/13/19 [Rx] Vancomycin [Vancocin 250 MG/5 ML Soln] 125 mg PO QID #140 ml 10/13/19 [Rx] Patient Handouts: Contusion, [id number] Referrals: Jose Luis Mann MD [Primary Care Provider] - - Discharge Summary/Plan Comment DC Time >30 min.: No - Patient Data Vitals - Most Recent: Last Vital Signs Temp 97.2 F 10/13/19 12:22 Pulse 64 10/13/19 12:22 Resp 16 10/13/19 12:22 BP 157/74 H 10/13/19 12:22 Pulse Ox 99 10/13/19 12:22 Weight - Most Recent: 115 lb I&O - Last 24 hours: Intake & Output 10/12/19 10/13/19 10/13/19 22:59 06:59 14:59 Intake Total 1545 300 Output Total 850 650 Balance 695 -650 300 Lab Results - Last 24 hrs: Laboratory Results - last 24 hr 10/13/19 10/13/19 Range/Units 05:40 05:40 WBC 9.7 (4.5-11.0) K/uL RBC 2.97 L (4.30-5.90) M/uL Hgb 9.4 L (12.0-15.0) g/dL Hct 30.2 L (40.0-54.0) % MCV 102 H (80-98) fL MCH 32 H (27-31) pg MCHC 31 L (32-36) % Plt Count 186 (150-400) K/uL Neut % (Auto) 80 H (36-66) % Lymph % (Auto) 12 L (24-44) % [place] % (Auto) 6 (2-6) % Eos % (Auto) 2 (2-4) % Baso % (Auto) 0 (0-1) % Sodium 138 L (140-148) mmol/L Potassium 4.0 (3.6-5.2) mmol/L Chloride 108 (100-108) mmol/L Carbon Dioxide 21 (21-32) mmol/L Anion Gap 13.0 (5.0-14.0) mmol/L BUN 25 H (7-18) mg/dL Creatinine 1.7 H (0.8-1.3) mg/dL Est Cr Clr Drug Dosing 22.16 mL/min Estimated GFR (MDRD) 38 L (>60) Glucose 94 (74-106) mg/dL Calcium 8.3 L (8.5-10.1) mg/dL JACKLYN Results - Last 24 hrs: Microbiology 10/11/19 13:30 Urine Culture - Preliminary Urine, Peacock Cath (Indwelling) 10/11/19 13:55 Aerobic Blood Culture - Preliminary Blood - Venous NO GROWTH AFTER 1 DAY Anaerobic Blood Culture - Preliminary NO GROWTH AFTER 1 DAY Med Orders - Current: Current Medications Acetaminophen (Tylenol) 650 mg PO Q4H PRN PRN Reason: Pain (Mild 1-3)/fever Last Admin: 10/12/19 18:01 Dose: 650 mg Buspirone HCl (Buspar) 15 mg PO BID [facility] Last Admin: 10/13/19 09:41 Dose: 15 mg Carbidopa/Levodopa (Sinemet 25-100 Mg) 1 tab PO QID [facility] Last Admin: 10/13/19 09:41 Dose: 1 tab Enoxaparin Sodium (Lovenox) 30 mg SUBCUT Q24H [facility] Last Admin: 10/12/19 17:18 Dose: 30 mg Ferrous Sulfate (Ferrous Sulfate) 325 mg PO DAILY@0800 [facility] Last Admin: 10/13/19 08:26 Dose: 325 mg Haloperidol (Haldol) 1 mg PO Q2H PRN PRN Reason: Agitation Last Admin: 10/12/19 20:48 Dose: 1 mg Ceftriaxone Sodium 1 gm/ (Sodium Chloride) 50 mls @ 100 mls/hr IV Q24H [facility] Last Admin: 10/12/19 14:50 Dose: 100 mls/hr Lactobacillus Rhamnosus (Culturelle) 2 cap PO BID [facility] Last Admin: 10/13/19 08:26 Dose: 2 cap Magnesium Oxide (Magnesium Oxide) 400 mg PO BID [facility] Last Admin: 10/13/19 08:26 Dose: 400 mg Melatonin (Melatonin) 9 mg PO BEDTIME PRN PRN Reason: Sleep Last Admin: 10/12/19 20:52 Dose: 9 mg Nystatin (Nystop) 0 gm TOP QID [facility] Last Admin: 10/13/19 09:41 Dose: 1 applic Ondansetron HCl (Zofran) 4 mg IV Q4H PRN PRN Reason: Nausea/Vomiting Polyethylene Glycol (Miralax) 17 gm PO DAILY PRN PRN Reason: Constipation Simvastatin (Zocor) 20 mg PO BEDTIME [facility] Last Admin: 10/12/19 20:47 Dose: 20 mg Sodium Chloride (Saline Flush) 10 ml FLUSH ASDIRECTED PRN PRN Reason: Keep Vein Open Vancomycin HCl (Vancocin 250 Mg/5 Ml Soln) 125 mg PO QID [facility] Last Admin: 10/13/19 09:48 Dose: 125 mg Discontinued Medications Lactated Ringer's (Ringers, Lactated) 1,000 mls @ 1,000 mls/hr IV BOLUS ONE Stop: 10/11/19 14:38 Last Admin: 10/11/19 13:45 Dose: 1,000 mls/hr Ceftriaxone Sodium 1 gm/ (Sodium Chloride) 50 mls @ 100 mls/hr IV Q24H [facility] Stop: 10/11/19 15:45 Last Admin: 10/11/19 14:51 Dose: 100 mls/hr Sodium Chloride (Normal Saline) 1,000 mls @ 125 mls/hr IV ASDIRECTED [facility] Last Admin: 10/12/19 07:43 Dose: 125 mls/hr Magnesium Sulfate 2 gm/ Premix 50 mls @ 25 mls/hr IV Q6H [facility] Stop: 10/12/19 16:29 Last Admin: 10/12/19 14:53 Dose: 25 mls/hr Nystatin (Nystop) 0 gm TOP QID [facility] - Exam Quality Assessment: Reports: DVT Prophylaxis General: Reports: Alert, Cooperative, No Acute Distress. Denies: Oriented Lungs: Reports: Clear to Auscultation, Normal Respiratory Effort Cardiovascular: Reports: Regular Rate, Regular Rhythm, No Murmurs GI/Abdominal Exam: Soft, Non-Tender, No Organomegaly, No Distention Extremities: Non-Tender, No Pedal Edema
[2019-10-13] MEDS: cefTRIAXone 1 GM in Sodium Chloride 0.9% 50 ML IV SCH (15:22)
== END 2019-10-13 16:15 | disposition hospice, home (50) | DRG 699 ==
LOC: JP.ED 11:12 → JP.MS 14:41
PROVIDERS: ADMIT Hospitalist; ATTEND Hospitalist
DX: R19.7 Diarrhea, unspecified (principal); T83.518A Infection and inflammatory reaction due to other urinary catheter, initial encounter; A04.71 Enterocolitis due to Clostridium difficile, recurrent; Z93.6 Other artificial openings of urinary tract status; H54.7 Unspecified visual loss; N18.4 Chronic kidney disease, stage 4 (severe); B96.89 Other specified bacterial agents as the cause of diseases classified elsewhere; Z66 Do not resuscitate; G89.29 Other chronic pain; M54.9 Dorsalgia, unspecified; F03.90 Unspecified dementia, unspecified severity, without behavioral disturbance, psychotic disturbance, mood disturbance, and anxiety; Z96.649 Presence of unspecified artificial hip joint; Z79.2 Long term (current) use of antibiotics; E78.00 Pure hypercholesterolemia, unspecified; N39.0 Urinary tract infection, site not specified; G20 Parkinson's disease; F02.80 Dementia in other diseases classified elsewhere, unspecified severity, without behavioral disturbance, psychotic disturbance, mood disturbance, and anxiety; K59.09 Other constipation; S00.83XA Contusion of other part of head, initial encounter; Z98.49 Cataract extraction status, unspecified eye; Z79.899 Other long term (current) drug therapy; W19.XXXA Unspecified fall, initial encounter
CPT/HCPCS: 36415; 71045; 80048; 81001; 83605; 85027; 87040; 87086; 87088; 87186; J7120; 83735; 85025; 87493; 99283; A9270-GY; J0696; J1650; J3475; J7030; J7050